=== PATIENT | male | born 1950 | race Caucasian/White ===

== ENCOUNTER 2019-12-30 13:03 | Outpatient (CLI) | payer OTHER, MEDICARE, SELFPAY ==
--- NOTE | 2019-12-30 13:19 | USCV_ITS ---
Gurinder Downing Age: 69 Gender: M : 1950 Exam Date: 12/30/2019 13:17 Ordering Phys: Сергей Villatoro DO Technologist: Exam Location: [facility] [place]_ Indication: CLAUDICATION HYPERTENSION RIGHT LEFT Brachial 157.00 mmHg Brachial 162.00 mmHg Pressure (mmHg) Waveform Pressure (mmHg) Waveform 171.00 BONE PULLER 194.00 140.00 DPA 191.00 1.06 Ankle/Brachial Index 1.20 186.00 Pre-Exercise Toe Pressure 156.00 1.15 Pre-Exercise Toe/Brachial Index 0.96 FINDINGS Normal resting ABIs and TBIs bilaterally CONCLUSIONS No significant arterial obstruction, based on the above findings Dr Julita Chiu MD [facility] (Electronically Signed) Final Date: 30 December 2019 20:27 S
== END 2019-12-30 13:04 | disposition home or self-care (01) ==
LOC: RAD 13:15
PROVIDERS: Family Provider Family Medicine; PCP Family Medicine; Visit Provider Electrodiagnostic Medicine
DX: I73.9 Peripheral vascular disease, unspecified (principal); I10 Essential (primary) hypertension
CPT/HCPCS: 93922

== ENCOUNTER 2020-07-26 12:36 | Outpatient (CLI) | payer OTHER, MEDICARE, SELFPAY ==
--- NOTE | 2020-07-26 12:53 | XRR_ITS ---
PROCEDURE INFORMATION: Exam: XR Right Knee Exam date and time: 07/26/2020 1:22 PM Age: 70 years old Clinical indication: Right; Patient HX: Can't straighten knee pain intensity varies; Additional info: Acute R knee pain TECHNIQUE: Imaging protocol: XR Right knee. Views: 3 views. COMPARISON: [facility] Knee RIGHT 3 views 08/12/2015 11:29 AM FINDINGS: Bones/joints: Moderately pronounced medial compartment joint space narrowing, unchanged. Enlarging joint line osteophytes most pronounced medial compartment. Soft tissues: Normal. XR/XR knee RT 3V* [id number] IMPRESSION: Osteoarthritis most pronounced medial compartment.
== END 2020-07-26 12:37 | disposition home or self-care (01) ==
LOC: RAD 12:46
PROVIDERS: PCP Family Medicine; Visit Provider Electrodiagnostic Medicine
DX: M17.11 Unilateral primary osteoarthritis, right knee (principal)
CPT/HCPCS: 73562

== ENCOUNTER 2021-02-02 12:22 | Outpatient (CLI) | payer MEDICARE, SELFPAY ==
--- NOTE | 2021-02-02 13:30 | USCV_ITS ---
Gurinder Downing Age: 70 Gender: M : 1950 Exam Date: 02/02/2021 13:22 Ordering Phys: Julita Chiu MD ([email or web address]) Technologist: Megan Arrington Exam Location: [facility] [place] Indication: PRE OP PACER BP: / HR: 40 Rhythm: Sinus Technical Quality: Adequate MEASUREMENTS (Male / Female) Normal Values 2D ECHO LV Diastolic Diameter PLAX 4.0 cm 4.2 - 5.9 / 3.9 - 5.3 cm LV Systolic Diameter PLAX 2.5 cm LV Chamber Size 4.0 cm IVS Diastolic Thickness 1.5 cm 0.6 - 1.0 / 0.6 - 0.9 cm IVS Systolic Thickness 1.2 cm LVPW Diastolic Thickness 1.6 cm 0.6 - 1.0 / 0.6 - 0.9 cm LVPW Systolic Thickness 1.2 cm RV Chamber Size 4.4 cm LVOT Diameter 2.1 cm LV Ejection Fraction 2D Teich 67.3 % LV Ejection Fraction MOD 2C 44.3 % LV Ejection Fraction 2C AL 44.2 % LA Diameter 4.1 cm LA Width 3.6 cm LA Height 4.2 cm RA Width 4.0 cm RA Height 3.1 cm Aorta at Sinotubular Diameter 3.4 cm M-MODE LV Diastolic Diameter MM 5.8 cm 4.2 - 5.9 / 3.9 - 5.3 cm LV Systolic Diameter MM 3.6 cm LV Ejection Fraction MM Teich 66.4 % IVS Diastolic Thickness MM 1.4 cm 0.6 - 1.0 / 0.6 - 0.9 cm IVS Systolic Thickness MM 2.2 cm LVPW Diastolic Thickness MM 1.5 cm 0.6 - 1.0 / 0.6 - 0.9 cm LVPW Systolic Thickness MM 2.5 cm Aortic Annulus Diameter 4.0 cm LA Ao Ratio MM 1.1 MV E Point Septal Separation 0.5 cm DOPPLER AV Peak Velocity 173.0 cm/s LVOT Peak Velocity 117.0 cm/s AV Area Cont Eq vti 2.4 cm squared AV Area Cont Eq pk 2.3 cm squared MV Area PHT 2.8 cm squared Mitral E to A Ratio 1.0 MV E' Velocity 48.0 cm/s Mitral E to MV E' Ratio 10.0 Mitral E to LV E' Lateral Ratio 13.3 Mitral E to LV E' Septal Ratio 8.1 TR Peak Velocity 156.8 cm/s TR Peak Gradient 9.8 mmHg TR Mean Velocity 96.8 cm/s TR Mean Gradient 4.5 mmHg TR Velocity Time Integral 33.5 cm TV Peak E Velocity 81.0 cm/s Right Atrial Pressure 3.0 mmHg Pulmonary Artery Systolic Pressu 12.8 mmHg PV Peak Velocity 91.0 cm/s RV Acceleration Time 0.2 s RV Ejection Time 0.4 s RV AcT/ET 0.5 FINDINGS Left Ventricle Normal left ventricular size and systolic function, EF 65%.moderate left ventricular hypertrophy. No regional wall motion abnormalities. Right Ventricle Normal right ventricular size and systolic function. Right Atrium The right atrium is normal in size. Left Atrium The left atrium is normal in size. Mitral Valve No gross abnormalities noted Aortic Valve Thickened aortic valve with some restriction of mobility Tricuspid Valve Trace to mild tricuspid valve regurgitation. Estimated pulmonary artery peak systolic pressure was within normal limits Pulmonic Valve Pulmonic valve not well visualized. Pericardium Normal pericardium without effusion. Aorta Normal ascending aorta dimension. CONCLUSIONS Normal left ventricular size and systolic function, EF 65%.moderate left ventricular hypertrophy. No regional wall motion abnormalities. Some features of aortic valve sclerosis. Trace to mild tricuspid valve regurgitation. There is no pericardial effusion. There are no intracardiac masses. No previous study is available for comparison. Dr Julita Chiu MD [facility] (Electronically Signed) Final Date: 02 February 2021 18:59 S
== END 2021-02-02 12:23 | disposition home or self-care (01) ==
PROVIDERS: PCP Family Medicine; Visit Provider Internal Medicine Cardiovascular Disease
DX: I44.30 Unspecified atrioventricular block (principal); N18.9 Chronic kidney disease, unspecified; Z79.01 Long term (current) use of anticoagulants; R06.02 Shortness of breath
CPT/HCPCS: 80048; 83880; 84443; 85025; 85610; 93306

== ENCOUNTER 2021-02-03 12:03 | Inpatient (IN) | payer MEDICARE, SELFPAY ==
[2021-02-03] VITALS (86 sets, daily range): BP systolic 91–184; BP diastolic 53–123; PULSE 35–72; RESP 11–25; TEMP 36.8–37; O2SAT 94–98; BMI 40.1
--- NOTE | 2021-02-03 12:26 | XR_ITS ---
WS: [id number] PORTABLE CHEST HISTORY: dyspnea/cough COMPARISON: 02/14/2016 Lungs are clear and well expanded. No pleural effusion or pneumothorax. Cardiac size: Normal. Mediastinum/Aorta: Normal mediastinum. No osseous abnormality seen. XR/XR chest 1V portable [id number] IMPRESSION: Unremarkable portable chest.
--- NOTE | 2021-02-03 12:26 | ECG_ITS ---
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 Measurements Intervals [place] Rate: 40 P: FL: QRS: 28 QRSD: 149 T: -28 QT: 497 QTc: 406 Interpretive Statements SINUS RHYTHM WITH COMPLETE HEART BLOCK AND ISOLATED PVC INTRAVENTRICULAR CONDUCTION DELAY [130+ ms QRS DURATION] Compared to ECG 02/03/2021 15:08:09 Intraventricular conduction delay now present Idioventricular rhythm no longer present Electronically Signed On 02-03-2021 23:12:01 CDT by Ayla Ha M.D. [id number]
--- NOTE | 2021-02-03 12:52 | W.ED.SOB ---
HPI - SOB/Dyspnea General: Chief Complaint: Shortness of Breath/Dyspnea Stated Complaint: SOB, SENT OVER BY DR. TOTH Time Seen by Provider: 02/03/21 12:23 History of Present Illness: HPI Narrative: 70-year-old male who presents to the emergency room with complaints of shortness of breath with exertion. He was seen this morning at cardiology office by Dr. Toth and found to be in third-degree heart block. He is not had any chest pain he has been very short of breath. MD elicited complaint: shortness of breath Onset (ago): week(s) Context: occurred during exertion Timing: constant and progressively worsening Severity: severe Exacerbating factors: exertion Relieving factors: rest Associated symptoms: Reports lightheadedness; Deny abdominal pain, chest pain, fever(s), nausea, orthopnea or vomiting Treatment prior to arrival: none Review of Systems Const: Denies: fever(s), chills, body aches, change in appetite, fatigue or malaise ENMT: Denies: throat pain, ear or mastoid pain, nasal discharge or nasal congestion Card: Reports: lightheadedness and dyspnea on exertion; Denies: chest pain, edema or orthopnea Resp: Reports: dyspnea; Denies: productive cough or non-productive cough GI: Denies: abdominal pain, nausea, vomiting, hematemesis, coffee ground emesis, diarrhea, constipation, bloating, hematochezia or melena : Denies: flank pain, dysuria, urinary frequency or urinary urgency Skin/Breast: Denies: rash or pruritus PFSH ED PFSH: Medical History History of hypertension Hx of hyperlipidemia NAILA (obstructive sleep apnea) Shortness of breath Symptomatic bradycardia Type 2 diabetes mellitus Family History Father CAD (coronary artery disease) Diabetes Stroke Mother Cancer CAD (coronary artery disease) Denies family history of Clotting disorder Dementia Chronic kidney disease (CKD) Suicide Anesthesia complication Bleeding disorder Lung disease Social History Smoking and tobacco status: never smoked Alcohol intake: current Alcohol intake frequency: few times a week Physical Exam Const: COMMON NORMALS: no acute distress GENERAL APPEARANCE: cooperative and comfortable ORIENTATION/CONSCIOUSNESS: Yes awake, Yes oriented to person, Yes oriented to place and Yes oriented to time HENMT: COMMON NORMALS: normocephalic, atraumatic and hearing grossly normal bilaterally HEAD & SCALP: normocephalic and atraumatic Neck/C-Spine: COMMON NORMALS: no JVD Resp: COMMON NORMALS: normal respiratory effort, No retractions, No use of accessory muscles and clear to auscultation bilaterally AUSCULTATION: clear to auscultation bilaterally Cardio: COMMON NORMALS: no JVD, regular rate and No murmurs present (Cardio) RATE: regular rate and bradycardic RHYTHM: abnormal rhythm (Symptomatic bradycardia) other GI: COMMON NORMALS: Soft to palpation and No hepatosplenomegaly present AUSCULTATION: Yes normoactive bowel sounds PALPATION: Yes Soft to palpation, No Tenderness to palpation present (GI), No Guarding due to palpation present (GI) and Yes No hepatosplenomegaly present Extremity: COMMON NORMALS: normal to inspection, capillary refill normal, no clubbing, cyanosis or edema, no calf tenderness and no pedal edema Neuro: SENSORIUM/ORIENTATION: Yes oriented to person, Yes oriented to place and Yes oriented to time Skin: COMMON NORMALS: no rashes or lesions noted GENERAL SKIN EXAM: no rashes or lesions noted Course Vital Signs: Vital signs: Vital Signs Temperature 98.4 F 02/03/21 12:16 Pulse Rate 37 L 02/03/21 14:51 Respiratory Rate 17 02/03/21 14:51 Blood Pressure 156/63 02/03/21 14:51 Pulse Oximetry 98 02/03/21 14:51 MDM - SOB/Dyspnea MDM Narrative: Medical decision making narrative: 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 Orders written Lab Data: Labs: Lab Results 02/03/21 02/03/21 02/03/21 Range/Units 12:52 12:52 12:52 WBC 6.0 (4.0-10.0) 10^3/ uL RBC 5.49 H (4.1-5.3) 10^6/u L Hgb 17.2 H (11.7-16.6) g/dL Hct 49.8 (42.0-52.0) % MCV 90.7 (80-94) fL MCH 31.3 (28.0-34.0) pg MCHC 34.5 (30.0-36.0) g/dL RDW 12.6 (12.1-15.1) % Plt Count 216 (130-400) 10^3/c mm MPV 9.7 (7.4-10.4) fL Neut % (Auto) 60.6 % Lymph % (Auto) 27.0 % Maverick % (Auto) 9.5 % Eos % (Auto) 2.2 % Baso % (Auto) 0.5 % Neut # (Auto) 3.62 (1.8-7.7) 10^3/u L Lymph # (Auto) 1.6 (0.8-4.8) 10^3/u L Maverick # (Auto) 0.6 (0.2-0.9) 10^3/u L Eos # (Auto) 0.1 (0.0-0.8) 10^3/u L Baso # (Auto) 0.0 (0.0-0.1) 10^3/u L Nucleated RBC % (a uto) 0 % Nucleated RBCs # 0.0 /100WBC Sodium 134 L (136-145) mmol/L Potassium 4.6 (3.5-5.1) mmol/L Chloride 103 (98-107) mmol/L Carbon Dioxide 19 L (22-29) mmol/L Anion Gap 16.6 (5-19) BUN 26 H (8-23) mg/dL Creatinine 1.1 (0.7-1.2) mg/dL GFR Calculation 66.4 L (90-130) mL/min Glucose 172 H (65-115) mg/dL Calculated Osmolal ity 287 (285-295) mOsm/k g Calcium 9.4 (8.5-10.5) mg/dL Total Bilirubin 0.7 (0.15-1.2) mg/dL AST 18 (0-40) U/L ALT 32 (0-41) U/L Alkaline Phosphata se 95 (40-130) IU/L Creatine Kinase 110 (39-308) U/L Troponin T Baselin e 28 H (0-15) ng/L Total Protein 6.1 L (6.6-8.7) g/dL Albumin 4.3 (3.5-5.2) g/dL Globulin 1.8 (1.3-4.6) g/dL TSH 2.37 (0.27-4.20) uIU/ mL Discharge Plan Discharge Patient Disposition: Admitted As Inpatient Admit Provider: Anil Wiley Clinical Impression: Heart block AV third degree, Accelerated hypertension Condition: Stable Coding Level of Care Code ED Insecticide Mixer for Chg Fwd Exam Comprehensive
[2021-02-03 13:06] LABS: Basophils % 0.5 %; Eosinophils # 0.1 10^3/uL (0.0-0.8); Eosinophils % 2.2 %; Hematocrit 49.8 % (42.0-52.0); Hemoglobin 17.2 g/dL (11.7-16.6); Lymphocytes # 1.6 10^3/uL (0.8-4.8); Mean Corpuscular HGB Conc 34.5 g/dL (30.0-36.0); Mean Corpuscular Hemoglobin 31.3 pg (28.0-34.0); Mean Corpuscular Volume 90.7 fL (80-94); Mean Platelet Volume 9.7 fL (7.4-10.4); Monocytes # 0.6 10^3/uL (0.2-0.9); Monocytes % 9.5 %; Neutrophils # 3.62 10^3/uL (1.8-7.7); Neutrophils % 60.6 %; Nucleated Red Blood Cells % 0 %; Platelet Count 216 10^3/cmm (130-400); Red Blood Count 5.49 10^6/uL (4.1-5.3); Red Cell Distribution Width 12.6 % (12.1-15.1)
[2021-02-03 13:43] LABS: Troponin(5th) Baseline 28 ng/L (0-15)
[2021-02-03 13:46] LABS: Add Urine Microscopic? NO
--- NOTE | 2021-02-03 13:47 | PC.PHAR ---
PT BROUGHT IN HIS MEDICATION BOTTLES-PT STATES THE AMLODIPINE WAS DCED AROUND 01/24/21-PT STATES HE TAKES LIPITOR 40MG ON MON,SUN,FRI-PTS MEDICATION BOTTLE HE BROUGHT IN HAS 40 MG PO BEDTIME-PT STATES HE TAKES BUPROPION 150MG PO QAM, 75MG PO AT NOON, 150MG AT HS-PTS MEDICATION BOTTLE BROUGHT IN HAS 150MG PO QAM,75MG AT NOON, 75MG HS-PT STATES HE TAKES DIVALPROEX 1000MG PO BEDTIME-PTS MEDICATION BOTTLE BROUGHT IN HAS 500MG PO BEDTIME-PT HAS A RX FILLED ON 02/02/21 30D/S FOR HYDRALAZINE 50MG PO TID PT STATES HE HASNT STARTED THAT RX YET-PT STATES HE IS TAKING HYDRALAZINE 25MG PO BID-PT STATES HE DOESNT NORMALLY TAKE ASPIRIN 81MG BUT HAS BEEN TAKING FOR THE LAST COUPLE OF DAYS
--- NOTE | 2021-02-03 13:48 | P.CONIM_ITS ---
Providers/Reason For Consult Consulting Physican/Specialty*: CANDACE Chiu MD/cardiology Reason for Consult*: Patient with symptomatic bradycardia/third-degree heart block Requesting Vanessaan: Anil Wiley History of Present Illness History of Present Illness Gurinder Downing is a 70 year old male with a history of hypertension, type 2 diab etes, obstructive sleep apnea and obesity, he is presently with complaints of extreme shortness of breath with activities for the last 2 weeks. He was found to be in third-degree heart block with possible junctional rhythm and PVCs on the EKG. Cardiology consult is requested for further cardiac evaluation and recommendations. This patient apparently has been in his baseline state of health up until 2 weeks ago when he had the episode of extreme shortness of breath as he was walking across the room that made him to collapse to the couch. Since then, he has been experiencing exertional shortness of breath .any minimal activities, make him short of breath . His functional status has been dramatically declining because of this. He did not have any chest pain as such. He was seen in my clinic yesterday with these complaints. I recommended hospital admission but the patient declined. Today he decided to come back and be admitted to the hospital for further evaluation management. Many years ago, he had a cardiac catheterization through the right groin, for chest pain and was told to have no blockages. According to the patient, following this procedure, he had severe pain in the right groin for a long period of time. Currently he is okay with no pain in the groin. He has no fever or chills. No cough. No orthopnea or PND. Review of Systems Narrative: CONSTITUTIONAL: No fever or chills. EYES: No blurring of vision or other visual disturbances lately. ENT: No hoarseness of voice, auditory disturbances or sore throat. CARDIOVASCULAR: As mentioned above. RESPIRATORY: Shortness of breath as mentioned above. GASTROINTESTINAL: No hematemesis or melena. GENITOURINARY: No dysuria or hematuria. INTEGUMENTARY: No skin rashes or history of skin cancer. NEURO: No transient ischemic attacks or amaurosis. PSYCHIATRIC: No history of psychosis or major depression. HEMATOLOGIC: No bleeding disorders or significant anemia. ENDOCRINE: Type 2 diabetes MUSCULOSKELETAL: No recent joint pain or swelling. ALLERGY/IMMUNOLOGY: As mentioned above. Meds/Allergies Home Medications and Allergies Home Medications Medication Instructions Recorded Confirmed Last Taken Type acetaminophen 500 mg tablet 500 mg PO PRN tab 02/02/21 02/03/21 Unknown History atorvastatin 40 mg tablet See Rx Instructions .ROUTE .COMPLEX 02/02/21 02/03/21 Unknown History bupropion HCl 75 mg tablet See Rx Instructions .ROUTE .COMPLEX 02/02/21 02/03/21 02/02/21 History diphenhydramine HCl 25 mg capsule 25 mg PO PRN 02/02/21 02/03/21 Unknown History glucosamine HCl 1,500 mg tablet 1,500 mg PO PRN tab 02/02/21 02/03/21 Unknown History hydralazine 50 mg tablet 50 mg PO TID 30 Days #90 tab 02/02/21 02/03/21 Unknown Rx hydrocodone 5 mg-acetaminophen 325 1 tab PO PRN tab 02/02/21 02/03/21 Unknown History mg tablet ibuprofen 200 mg capsule 200 - 600 mg PO PRN 02/02/21 02/03/21 Unknown History metformin 1,000 mg tablet 1,000 mg PO BID 02/02/21 02/03/21 02/02/21 History methylphenidate HCl 20 mg tablet 20 mg PO BID 02/02/21 02/03/21 02/02/21 History multivitamin 1 tab PO DAILY 02/02/21 02/03/21 02/02/21 History olmesartan 40 mg tablet 40 mg PO QAM 02/02/21 02/03/21 02/02/21 History sildenafil 100 mg tablet 100 mg PO PRN 02/02/21 02/03/21 Unknown History testosterone 50 mg/5 gram (1 %) 50 mg TRANSDERMAL QAM 02/02/21 02/03/21 Unknown History transdermal gel vitamin B complex 1 tab PO DAILY 02/02/21 02/03/21 Unknown History Closys Mouthwash See Rx Instructions .ROUTE .COMPLEX 02/03/21 02/03/21 Unknown History aspirin [Aspir-81] 81 mg PO PRN 02/03/21 02/03/21 02/02/21 History clotrimazole [Lotrimin AF 1 applic TOPICAL PRN 02/03/21 02/03/21 Unknown History (clotrimazole)] divalproex See Rx Instructions .ROUTE .COMPLEX 02/03/21 02/03/21 Unknown History hydralazine 25 mg PO BID 02/03/21 02/03/21 02/03/21 10:30 History Allergies Allergy/AdvReac Type Severity Reaction Status Date / Time No Known Allergies Allergy Verified 02/03/21 13:39 PFSH Acute PFSH: Medical History History of hypertension Hx of hyperlipidemia NAILA (obstructive sleep apnea) Shortness of breath Symptomatic bradycardia Type 2 diabetes mellitus Family History Father CAD (coronary artery disease) Diabetes Stroke Mother Cancer CAD (coronary artery disease) Denies family history of Clotting disorder Dementia Chronic kidney disease (CKD) Suicide Anesthesia complication Bleeding disorder Lung disease Social History Smoking and tobacco status: never smoked Alcohol intake: current Alcohol intake frequency: few times a week Vitals/I&O/Wt Last Vital Signs Temp 98.4 F 02/03/21 12:16 Pulse 38 L 02/03/21 13:43 Resp 16 02/03/21 13:43 BP 184/74 02/03/21 13:43 Pulse Ox 95 02/03/21 13:43 Weight last 48 hrs Weight 288 lb Physical Exam Narrative: EXAM NARRATIVE: GENERAL: The patient is alert and oriented times three. Not in any acute distress. HEENT: No significant pallor, icterus or lymphadenopathy. The pupils are reactant to light and are mildly dilated. Oral cavity: There are no mucous membrane lesions. Funduscopic examination: The fundus is not visualized NECK: Trachea appears to be central. No masses noted. No JVD or thyromegaly appreciated. No carotid bruit. RESPIRATORY: Chest is symmetrical. No intercostals muscle retraction or any accessory muscle activation. There is no chest wall tenderness. Breath sounds are heard bilaterally. No rales or rhonchi heard. No evidence of any consolidation. BREASTS: Deferred. HEART: S1 and S2 are normal. No S3 or S4 heard. Short ejection systolic murmur grade 3/6 in the aortic area . No pericardial rub or any click heard. ABDOMEN: No vessel pulsations or distention. No tenderness. No organomegaly appreciated. No abdominal bruit. Bowel sounds are normally heard. : Deferred. RECTAL: Deferred. LYMPHATIC: No lymphadenopathy noted in the neck or groin. EXTREMITIES: No edema or cyanosis. No clubbing. The pulses are symmetrical bilaterally. The radial, femoral, dorsalis pedis and the posterior tibial pulses are palpated and found to be in good volume and amplitude. MUSCULOSKELETAL: No acute joint deformities or swelling SKIN: There are no significant scars or skin rash noted. NEUROPSYCHIATRIC: The patient is alert and oriented x3. Appears to be in a good mood. The higher functions are grossly within normal limits. No tremors or rigidity noted. Data Imaging^: Echo: My impression: Echocardiogram done on 02/02/2021 revealed Normal left ventricular size and systolic function, EF 65%.moderate left ventricular hypertrophy. No regional wall motion abnormalities. Some features of aortic valve sclerosis. Trace to mild tricuspid valve regurgitation. There is no pericardial effusion. There are no intracardiac masses. No previous study is available for comparison. CXR: My impression: Normal cardiac silhouette with no lung infiltrates. No acute pathology noted. EKG^: EKG 1: My Interpretation: The EKG revealed third-degree heart block with possible junctional escape rhythm. Heart rate was 44 bpm. Occasional PVCs. Nonspecific IVCD. A&P Assessment and plan (1) Heart block AV third degree: Patient requires a permanent pacer implantation, for further management of his condition. This was discussed with the patient in detail which he understood well. We may consider doing a temporary pacemaker wire insertion p rior to the permanent pacemaker procedure. His procedures were discussed with the patient in detail. The risk of bleeding, hematoma, vascular injury, pneumothorax, infection, renal failure and other concomitant complications were explained in detail. The patient [] understood this well and consented to proceed. We will go ahead and schedule the patient for the procedure in the morning. Status: Acute (2) Accelerated hypertension: For better control of the blood pressure, I may increase the dose of the hydralazine to 50 mg p.o. every 6 hours. He may continue on all current medications as it is. Status: Acute (3) Hx of hyperlipidemia: May continue on the current medications. Status: Acute (4) NAILA (obstructive sleep apnea): Continue the current management. Status: Acute (5) Shortness of breath: Most likely related to the bradycardia. The BNP was only minimally elevated. Status: Acute Additional A&P Information Based on the patient's clinical progress, further recommendations will be made. Thank you for the opportunity to evaluate this patient and make these recommendations Consult Attestations Medical Necessity Statement: Patient requires continued hospital stay for close monitoring and further management Coding Level of Care Code Acute Outside Sales Advertising Executive for Chg Fwd Diagnoses Heart block AV third degree I44.2 Accelerated hypertension I10 Hx of hyperlipidemia Z86.39 NAILA (obstructive sleep apnea) G47.33 Shortness of breath R06.02
[2021-02-03 13:50] LABS: Alanine Aminotransferase 32 U/L (0-41); Albumin Level 4.3 g/dL (3.5-5.2); Alkaline Phosphatase 95 IU/L (40-130); Anion Gap 16.6 (5-19); Aspartate Amino Transferase 18 U/L (0-40); Blood Urea Nitrogen 26 mg/dL (8-23); Calcium 9.4 mg/dL (8.5-10.5); Carbon Dioxide 19 mmol/L (22-29); Chloride 103 mmol/L (98-107); Creatine Phosphokinase 110 U/L (39-308); Globulin 1.8 g/dL (1.3-4.6); Glomerular Filtration Rate 66.4 mL/min (90-130); Glucose 172 mg/dL (65-115); Osmolality Calculated 287 mOsm/kg (285-295); Potassium 4.6 mmol/L (3.5-5.1); Sodium 134 mmol/L (136-145); Thyroid Stimulating Hormone 2.37 uIU/mL (0.27-4.20); Total Bilirubin 0.7 mg/dL (0.15-1.2); Total Protein 6.1 g/dL (6.6-8.7)
[2021-02-03 13:52] LABS: Bilirubin Urine Neg (Negative); Blood Urine Neg (Negative); Glucose Urine UA 1+ (Normal); Ketones Urine Negative (Negative); Leukocyte Esterase Urine Negative (Negative); Nitrate Urine Negative (Negative); Protein Urine Neg (Negative); Urine Appearance Clear (CLEAR); Urine Color Yellow (Yellow); Urobilinogen Urine Norm (Negative); pH Urine 5 (5-7)
--- NOTE | 2021-02-03 13:52 | PM.HP ---
Providers/Chief Complaint Chief Complaint: SOB, SENT OVER BY DR. TOTH History of Present Illness Gurinder Downing is a 70 year old [id number] male with past medical history of hypertension, dyslipidemia, diabetes who presents with complaints of shortness of breath. He was referred by his primary mandrel maker Dr. Toth. Several weeks ago the patient started experiencing shortness of breath with exertion and decreased stamina. Some days he feels worse than others. He reports orthostatic lightheadedness occasionally. He was evaluated by his primary mandrel maker Dr. Toth yesterday and was found to have third-degree AV block. He is in ER now for admission for permanent pacemaker placement. He occasionally reports palpitations and some chest discomfort. No severe pain. Denies cough, mucus production, fever or chills. No nausea or vomiting. No abdominal pain. No diarrhea. Denies any rectal blood or black stool. Denies similar episodes in the past. EKG in the emergency room confirmed diagnosis. He has third-degree AV block with ventricular rate of 44. No ischemic changes. Review of Systems General: Reports: 10 or more systems reviewed and unremarkable except in HPI and below Medications/Allergies Home Medications Medication Instructions Recorded Confirmed Last Taken Type acetaminophen 500 mg tablet 500 mg PO PRN tab 02/02/21 02/03/21 Unknown History atorvastatin 40 mg tablet See Rx Instructions .ROUTE .COMPLEX 02/02/21 02/03/21 Unknown History bupropion HCl 75 mg tablet See Rx Instructions .ROUTE .COMPLEX 02/02/21 02/03/21 02/02/21 History diphenhydramine HCl 25 mg capsule 25 mg PO PRN 02/02/21 02/03/21 Unknown History glucosamine HCl 1,500 mg tablet 1,500 mg PO PRN tab 02/02/21 02/03/21 Unknown History hydralazine 50 mg tablet 50 mg PO TID 30 Days #90 tab 02/02/21 02/03/21 Unknown Rx hydrocodone 5 mg-acetaminophen 325 1 tab PO PRN tab 02/02/21 02/03/21 Unknown History mg tablet ibuprofen 200 mg capsule 200 - 600 mg PO PRN 02/02/21 02/03/21 Unknown History metformin 1,000 mg tablet 1,000 mg PO BID 02/02/21 02/03/21 02/02/21 History methylphenidate HCl 20 mg tablet 20 mg PO BID 02/02/21 02/03/21 02/02/21 History multivitamin 1 tab PO DAILY 02/02/21 02/03/21 02/02/21 History olmesartan 40 mg tablet 40 mg PO QAM 02/02/21 02/03/21 02/02/21 History sildenafil 100 mg tablet 100 mg PO PRN 02/02/21 02/03/21 Unknown History testosterone 50 mg/5 gram (1 %) 50 mg TRANSDERMAL QAM 02/02/21 02/03/21 Unknown History transdermal gel vitamin B complex 1 tab PO DAILY 02/02/21 02/03/21 Unknown History Closys Mouthwash See Rx Instructions .ROUTE .COMPLEX 02/03/21 02/03/21 Unknown History aspirin [Aspir-81] 81 mg PO PRN 02/03/21 02/03/21 02/02/21 History clotrimazole [Lotrimin AF 1 applic TOPICAL PRN 02/03/21 02/03/21 Unknown History (clotrimazole)] divalproex See Rx Instructions .ROUTE .COMPLEX 02/03/21 02/03/21 Unknown History hydralazine 25 mg PO BID 02/03/21 02/03/21 02/03/21 10:30 History Allergies Allergy/AdvReac Type Severity Reaction Status Date / Time No Known Allergies Allergy Verified 02/03/21 13:39 PFSH Acute PFSH: Medical History History of hypertension Hx of hyperlipidemia NAILA (obstructive sleep apnea) Shortness of breath Symptomatic bradycardia Type 2 diabetes mellitus Family History Father CAD (coronary artery disease) Diabetes Stroke Mother Cancer CAD (coronary artery disease) Denies family history of Clotting disorder Dementia Chronic kidney disease (CKD) Suicide Anesthesia complication Bleeding disorder Lung disease Social History Smoking and tobacco status: never smoked Alcohol intake: current Alcohol intake frequency: few times a week Vitals/I&O/Wt Last Vital Signs Temp 98.4 F 02/03/21 12:16 Pulse 38 L 02/03/21 13:43 Resp 16 02/03/21 13:43 BP 184/74 02/03/21 13:43 Pulse Ox 95 02/03/21 13:43 Weight last 48 hrs Weight 130.635 kg Physical Exam Narrative: EXAM NARRATIVE: The patient is awake alert and oriented. No acute distress. Mood and affect are appropriate. Responses are adequate. Skin is warm and dry. Moist mucous membranes. Eyes PERRL, extraocular muscles are intact Neck supple. No JVD Lungs clear to auscultation bilaterally. Heart S1, S2, irregular Abdomen soft, obese, nontender, bowel sounds are present Extremities no edema cyanosis or calf tenderness bilaterally Neuro evaluation is nonfocal. normal speech. Data : 02/03/21 12:52 02/03/21 12:52 Other Labs: Laboratory Results WBC 6.0 10^3/uL (4.0-10.0) 02/03/21 12:52 RBC 5.49 10^6/uL (4.1-5.3) H 02/03/21 12:52 Hgb 17.2 g/dL (11.7-16.6) H 02/03/21 12:52 Hct 49.8 % (42.0-52.0) 02/03/21 12:52 MCV 90.7 fL (80-94) 02/03/21 12:52 MCH 31.3 pg (28.0-34.0) 02/03/21 12:52 MCHC 34.5 g/dL (30.0-36.0) 02/03/21 12:52 RDW 12.6 % (12.1-15.1) 02/03/21 12:52 Plt Count 216 10^3/cmm (130-400) 02/03/21 12:52 MPV 9.7 fL (7.4-10.4) 02/03/21 12:52 Neut % (Auto) 60.6 % 02/03/21 12:52 Lymph % (Auto) 27.0 % 02/03/21 12:52 [place] % (Auto) 9.5 % 02/03/21 12:52 Eos % (Auto) 2.2 % 02/03/21 12:52 Baso % (Auto) 0.5 % 02/03/21 12:52 Neut # (Auto) 3.62 10^3/uL (1.8-7.7) 02/03/21 12:52 Lymph # (Auto) 1.6 10^3/uL (0.8-4.8) 02/03/21 12:52 [place] # (Auto) 0.6 10^3/uL (0.2-0.9) 02/03/21 12:52 Eos # (Auto) 0.1 10^3/uL (0.0-0.8) 02/03/21 12:52 Baso # (Auto) 0.0 10^3/uL (0.0-0.1) 02/03/21 12:52 Nucleated RBC % (auto) 0 % 02/03/21 12:52 Nucleated RBCs # 0.0 /100WBC 02/03/21 12:52 Potassium 4.6 mmol/L (3.5-5.1) 02/03/21 12:52 Chloride 103 mmol/L (98-107) 02/03/21 12:52 Anion Gap 16.6 (5-19) 02/03/21 12:52 Creatinine 1.1 mg/dL (0.7-1.2) 02/03/21 12:52 Calculated Osmolality 287 mOsm/kg (285-295) 02/03/21 12:52 Calcium 9.4 mg/dL (8.5-10.5) 02/03/21 12:52 Total Bilirubin 0.7 mg/dL (0.15-1.2) 02/03/21 12:52 AST 18 U/L (0-40) 02/03/21 12:52 ALT 32 U/L (0-41) 02/03/21 12:52 Alkaline Phosphatase 95 IU/L (40-130) 02/03/21 12:52 Creatine Kinase 110 U/L (39-308) 02/03/21 12:52 Troponin T Baseline 28 ng/L (0-15) H 02/03/21 12:52 Albumin 4.3 g/dL (3.5-5.2) 02/03/21 12:52 Globulin 1.8 g/dL (1.3-4.6) 02/03/21 12:52 TSH 2.37 uIU/mL (0.27-4.20) 02/03/21 12:52 Urine Color Yellow (Yellow) 02/03/21 13:35 Urine Appearance Clear (CLEAR) 02/03/21 13:35 Urine pH 5 (5-7) 02/03/21 13:35 Ur Specific [place] 1.020 (1.005-1.030) 02/03/21 13:35 Urine Protein Neg (Negative) 02/03/21 13:35 Urine Glucose (UA) 1+ (Normal) 02/03/21 13:35 Urine Ketones Negative (Negative) 02/03/21 13:35 Urine Blood Neg (Negative) 02/03/21 13:35 Urine Nitrate Negative (Negative) 02/03/21 13:35 Urine Bilirubin Neg (Negative) 02/03/21 13:35 Urine Urobilinogen Norm mg/dL (Negative) 02/03/21 13:35 Ur Leukocyte Esterase Negative (Negative) 02/03/21 13:35 Impressions Chest X-Ray 02/03/21 12:26 IMPRESSION: Unremarkable portable chest. A&P Additional A&P Information 70-year-old male being admitted for third-degree AV block. Heart block with bradycardia. Being admitted to ICU. Permanent pacemaker will be placed tomorrow. [id number] patient. Hypertension, uncontrolled. We will continue home hydralazine and Benicar. Will order as needed Vasotec. Diabetes. His A1c was about 7.8 last time. The patient asked me not to order insulin sliding scale. He does not want insulin. We will hold his Metformin while he is hospitalized. We will closely monitor his blood sugar. DVT prophylaxis. Teds and SCDs. No anticoagulation due to upcoming procedure. CODE STATUS. He wants to be full code. The plan of care was discussed with the patient and his . They verbalized understanding and agreement. Discussed with Dr. Toth. Attestations Medical Necessity Statement*: Patient is being admitted to ICU with complete heart block. Pacemaker placement probably tomorrow. I expect that the patient will spend another midnight after that. Coding Level of Care Code Acute Procurement Coordinator for Leonel Evans
--- NOTE | 2021-02-03 14:26 | ECG_ITS ---
[facility] Test Date: 2021-02-03 Pat Name: Gurinder Downing Department: Room: ICU11 Gender: Male Home Based Assistant: : 1950 Requested By: Eddie Gloria Order Number: [id number] Alfie MD: Ayla Ha M.D. Measurements Intervals [place] Rate: 35 P: [place]: QRS: 9 QRSD: 129 T: 2 QT: 539 QTc: 415 Interpretive Statements SINUS RHYTHM COMPLETE HEART BLOCK INTRAVENTRICULAR CONDUCTION DELAY CRITICAL TEST RESULT Compared to ECG 02/03/2021 13:08:47 T-wave abnormality no longer present Prolonged QT interval no longer present Electronically Signed On 02-03-2021 23:13:46 CDT by Ayla Ha M.D. [email or web address] centerInReal Technologiesohiohealth marion general hospital.[employer]/store/OM/[id number]
--- NOTE | 2021-02-03 15:11 | PC.NURSE ---
EKG done at 1505 and shown to ER doctor
[2021-02-03 15:32] LABS: Troponin 5 2HR 26.18 ng/L (0-15)
[2021-02-03 15:37] LABS: Troponin 5 2HR Delta -1.82 ABS# (0-10)
--- NOTE | 2021-02-03 15:55 | PC.NURSE ---
To ICU via wheelchair at 1551, ambulated to restroom, belongings at beside, accompanied by . No signs of distress, no chest pain.
[2021-02-03] MEDS: enalaprilat 1.25 mg/mL Inj IVP (16:54)
[2021-02-03] MEDS: hyDRALAzine 50 mg Tablet PO ×2 (18:03→20:59)
--- NOTE | 2021-02-03 18:26 | ECG_ITS ---
[facility] Test Date: 2021-02-03 Pat Name: Gurinder Downing Department: Room: Gender: Male Manager Group: : 1950 Requested By: Eddie Gloria Order Number: [id number] Alfie MD: Dashawn Cárdenas M.D. Measurements Intervals [place] Rate: 44 P: [place]: QRS: 22 QRSD: 118 T: 38 QT: 519 QTc: 448 Interpretive Statements COMPLETE HEART BLOCK/THIRD DEGREE AV BLOCK POSSIBLE RIGHT VENTRICULAR CONDUCTION DELAY [RSR (QR) IN V1/V2] NONSPECIFIC T-WAVE ABNORMALITY PROLONGED QT INTERVAL No previous ECG available for comparison Electronically Signed On 02-04-2021 18:51:03 CDT by Dashawn Cárdenas M.D. [email or web address].[email or web address]/store/OM/[id number]
[2021-02-03 20:26] LABS: Troponin 5 6HR 25.93 ng/L (0-15)
[2021-02-03 20:27] LABS: Troponin 5 6HR Delta -2.07 ng/L (0-12)
[2021-02-03] MEDS: divalproex ER 500 mg Tablet (24H) 1000 MG PO (20:59)
--- NOTE | 2021-02-03 22:48 | ECG_ITS ---
[facility] Test Date: 2021-02-03 Pat Name: Gurinder Downing Department: Room: ICU11 Gender: Male Cooker Casing: : 1950 Requested By: Dominic Friedman Order Number: [id number] Alfie MD: Dashawn Cárdenas M.D. Measurements Intervals [place] Rate: 43 P: [place]: QRS: 104 QRSD: 156 T: -55 QT: 517 QTc: 442 Interpretive Statements ATRIAL FIBRILLATION WITH SLOW VENTRICULAR RESPONSE INTRAVENTRICULAR CONDUCTION DELAY [130+ ms QRS DURATION] POSSIBLE RIGHT VENTRICULAR HYPERTROPHY [SOME/ALL OF: PROMINENT R IN V1, LATE TRANSITION, RAD, KIERAN, SSS] Compared to ECG 02/03/2021 17:52:59 Atrial abnormality now present Sinus rhythm no longer present Ventricular premature complex(es) no longer present AV block, complete (third-degree) no longer present Electronically Signed On 02-04-2021 18:44:54 CDT by Dashawn Cárdenas M.D. [id number] f
[2021-02-03] MEDS: sodium chloride 0.45% 1,000 ML 75 ML IV (23:38)
--- NOTE | 2021-02-03 23:46 | PC.NURSE ---
Patient had a 25 beat run of Vtach come across monitoring screen. RN at bedside. EKG performed. Results relayed and reported to MD it consulting director. No new orders received. Mild chest discomfort reported by pt, but not enough in which pt would accept pain medications. Education given to patient on need for surgery. Patient now resting in bed with eyes closed. Bed low and locked, with call light in reach. No verbalized needs at this time.
[2021-02-04] VITALS (146 sets, daily range): BP systolic 85–183; BP diastolic 40–133; PULSE 35–68; RESP 11–26; TEMP 36.4–37.3; O2SAT 93–97; BMI 40.1
[2021-02-04 04:05] LABS: Basophils # 0.1 10^3/uL (0.0-0.1); Basophils % 0.7 %; Eosinophils # 0.2 10^3/uL (0.0-0.8); Eosinophils % 2.1 %; Hemoglobin 16.8 g/dL (11.7-16.6); Lymphocytes # 1.7 10^3/uL (0.8-4.8); Mean Corpuscular HGB Conc 33.6 g/dL (30.0-36.0); Mean Corpuscular Hemoglobin 31.6 pg (28.0-34.0); Mean Corpuscular Volume 94.2 fL (80-94); Mean Platelet Volume 10.6 fL (7.4-10.4); Monocytes # 0.6 10^3/uL (0.2-0.9); Monocytes % 8.3 %; Neutrophils # 4.58 10^3/uL (1.8-7.7); Neutrophils % 64.6 %; Nucleated Red Blood Cells % 0 %; Platelet Count 173 10^3/cmm (130-400); Red Blood Count 5.31 10^6/uL (4.1-5.3); Red Cell Distribution Width 12.9 % (12.1-15.1); White Blood Count 7.1 10^3/uL (4.0-10.0)
[2021-02-04 04:20] LABS: Alanine Aminotransferase 29 U/L (0-41); Albumin Level 3.8 g/dL (3.5-5.2); Alkaline Phosphatase 85 IU/L (40-130); Blood Urea Nitrogen 24 mg/dL (8-23); Calcium 9.1 mg/dL (8.5-10.5); Carbon Dioxide 22 mmol/L (22-29); Chloride 105 mmol/L (98-107); Glucose 169 mg/dL (65-115); Osmolality Calculated 290 mOsm/kg (285-295); Sodium 136 mmol/L (136-145); Total Bilirubin 0.6 mg/dL (0.15-1.2); Total Protein 5.8 g/dL (6.6-8.7)
[2021-02-04 04:27] LABS: Anion Gap 13.5 (5-19); Aspartate Amino Transferase 18 U/L (0-40); Potassium 4.5 mmol/L (3.5-5.1)
[2021-02-04] MEDS: hyDRALAzine 20 mg/mL INJ 1 mL IVP (04:52)
[2021-02-04 06:53] LABS: Magnesium 2.3 mg/dL (1.7-2.3)
--- NOTE | 2021-02-04 08:41 | PM.PN ---
Subjective Subjective: Interval history: The patient is feeling okay. He has some difficulty in passing urine. He has a history of? BPH. Denies any chest pain or chest tightness. No unusual shortness of breath. His blood pressure is still remains elevated in the 170s. It was in the 110s in the dry janitor Medications: Reviewed: Yes Medication Review Details: Current Medications Acetaminophen (Acetaminophen 325 Mg Tablet) 650 mg PO Q6H PRN PRN Reason: Mild/Mod Pain Or Temp >/= 101 Hydrocodone Bitart/Acetaminophen (Hydrocodone-Acetaminophen 5-325 Mg Tablet) 1 tab PO Q8H PRN PRN Reason: SEVERE PAIN Aspirin (Aspirin 81 Mg Ec Tablet) 81 mg PO PRN JOJO Atorvastatin Calcium (Atorvastatin 40 Mg Tablet) 40 mg PO MoWeFr@1800 [facility] Clotrimazole (Clotrimazole 1% Cream 30 Gm) 1 applic TOPICAL BID PRN PRN Reason: TOPICAL FUNGAL Divalproex Sodium (Divalproex Er 500 Mg Tablet (24h)) 1,000 mg PO BEDTIME [facility] Last Admin: 02/03/21 20:59 Dose: 1,000 mg Documented by: Enalaprilat (Enalaprilat 1.25 Mg/Ml Inj) 1.25 mg IVP Q4H PRN PRN Reason: SBP above 165 Last Admin: 02/03/21 16:54 Dose: 1.25 mg Documented by: Folic Acid (Folic Acid 1 Mg Tablet) 1 mg PO DAILY [facility] Last Admin: 02/04/21 08:38 Dose: Not Given Documented by: Hydralazine HCl (Hydralazine 50 Mg Tablet) 50 mg PO QID [facility] Last Admin: 02/04/21 08:43 Dose: 50 mg Documented by: Sodium Chloride (Sodium Chloride 0.45%) 1,000 mls @ 75 mls/hr IV .[id number] [facility] Last Admin: 02/03/21 23:38 Dose: 75 mls/hr Documented by: Cefazolin Sodium/Dextrose (Kefzol) 2 gm in 50 mls @ 100 mls/hr IV DIE CASTING MACHINE OPERATOR ONE; Protocol Stop: 02/04/21 09:14 Lorazepam (Lorazepam 2 Mg/Ml Inj 1 Ml) 2 mg IM PROTOCOL PRN; Protocol PRN Reason: ALCOWD Lorazepam (Lorazepam 2 Mg Tablet) 2 mg PO PROTOCOL PRN; Protocol PRN Reason: WITHDRAWAL Losartan Potassium (Losartan 50 Mg Tablet) 100 mg PO QAM [facility] Last Admin: 02/04/21 04:59 Dose: Not Given Documented by: Multivitamins Therapeutic (Multivitamin Therapeutic Tablet) 1 tab PO DAILY [facility] Last Admin: 02/04/21 08:38 Dose: Not Given Documented by: Multivitamins Therapeutic (Multivitamin Therapeutic Tablet) 1 tab PO DAILY [facility] Last Admin: 02/04/21 08:38 Dose: Not Given Documented by: Non-Formulary Medication (Bupropion Hcl) 150 mg PO 0600,2100 [facility] Non-Formulary Medication (Methylphenidate Hcl [Ritalin]) 20 mg PO BID [facility] Non-Formulary Medication (Vitamin B Complex) 1 tab PO DAILY [facility] Non-Formulary Medication (Glucosamine Hcl) 1,500 mg PO DAILY PRN PRN Reason: joint Non-Formulary Medication (Bupropion Hcl) 75 mg PO 1200 JOJO Ondansetron HCl (Ondansetron 2 Mg/Ml Sdv 2 Ml) 4 mg IVP Q6H PRN PRN Reason: NAUSEA AND VOMITING Thiamine Mononitrate (Thiamine 100 Mg Tablet) 100 mg PO DAILY [facility] Last Admin: 02/04/21 08:38 Dose: Not Given Documented by: Vitals/I&O/Wt Last Vital Signs Temp 97.7 F 02/04/21 08:00 Pulse 45 L 02/04/21 08:00 Resp 16 02/04/21 08:00 BP 168/58 02/04/21 08:00 Pulse Ox 95 02/04/21 08:00 02/03/21 02/04/21 02/04/21 22:59 06:59 14:59 Intake Total 390 / 390 0 / 390 Output Total 250 / 250 360 / 360 Balance 390 / 390 -250 / 140 -360 / -360 Weight last 48 hrs Weight 288 lb Weight 288 lb Physical Exam Narrative: EXAM NARRATIVE: GENERAL: The patient is alert and oriented times three. Not in any acute distress. HEENT: No significant pallor, icterus or lymphadenopathy. The pupils are reactant to light and are mildly dilated. Oral cavity: There are no mucous membrane lesions. NECK: Trachea appears to be central. No masses noted. No JVD or thyromegaly appreciated. No carotid bruit. RESPIRATORY: Chest is symmetrical. No intercostals muscle retraction or any accessory muscle activation. There is no chest wall tenderness. Breath sounds are heard bilaterally. No rales or rhonchi heard. No evidence of any consolidation. BREASTS: Deferred. HEART: S1 and S2 are normal. No S3 or S4 heard. Short ejection systolic murmur grade 3/6 in the aortic area . No pericardial rub or any click heard. ABDOMEN: No vessel pulsations or distention. No tenderness. No organomegaly appreciated. No abdominal bruit. Bowel sounds are normally heard. : Deferred. RECTAL: Deferred. LYMPHATIC: No lymphadenopathy noted in the neck or groin. EXTREMITIES: No edema or cyanosis. No clubbing. MUSCULOSKELETAL: No acute joint deformities or swelling SKIN: There are no significant scars or skin rash noted. NEUROPSYCHIATRIC: The patient is alert and oriented x3. Appears to be in a good mood. The higher functions are grossly within normal limits. No tremors or rigidity noted. Data : 02/04/21 03:51 02/04/21 03:51 Other Labs: Laboratory Last Values WBC 7.1 10^3/uL (4.0-10.0) 02/04/21 03:51 RBC 5.31 10^6/uL (4.1-5.3) H 02/04/21 03:51 Hgb 16.8 g/dL (11.7-16.6) H 02/04/21 03:51 Hct 50.0 % (42.0-52.0) 02/04/21 03:51 MCV 94.2 fL (80-94) H 02/04/21 03:51 MCH 31.6 pg (28.0-34.0) 02/04/21 03:51 MCHC 33.6 g/dL (30.0-36.0) 02/04/21 03:51 RDW 12.9 % (12.1-15.1) 02/04/21 03:51 Plt Count 173 10^3/cmm (130-400) 02/04/21 03:51 MPV 10.6 fL (7.4-10.4) H 02/04/21 03:51 Neut % (Auto) 64.6 % 02/04/21 03:51 Lymph % (Auto) 24.0 % 02/04/21 03:51 [place] % (Auto) 8.3 % 02/04/21 03:51 Eos % (Auto) 2.1 % 02/04/21 03:51 Baso % (Auto) 0.7 % 02/04/21 03:51 Neut # (Auto) 4.58 10^3/uL (1.8-7.7) 02/04/21 03:51 Lymph # (Auto) 1.7 10^3/uL (0.8-4.8) 02/04/21 03:51 [place] # (Auto) 0.6 10^3/uL (0.2-0.9) 02/04/21 03:51 Eos # (Auto) 0.2 10^3/uL (0.0-0.8) 02/04/21 03:51 Baso # (Auto) 0.1 10^3/uL (0.0-0.1) 02/04/21 03:51 Nucleated RBC % (auto) 0 % 02/04/21 03:51 Nucleated RBCs # 0.0 /100WBC 02/04/21 03:51 Sodium 136 mmol/L (136-145) 02/04/21 03:51 Potassium 4.5 mmol/L (3.5-5.1) 02/04/21 03:51 Chloride 105 mmol/L (98-107) 02/04/21 03:51 Carbon Dioxide 22 mmol/L (22-29) 02/04/21 03:51 Anion Gap 13.5 (5-19) 02/04/21 03:51 BUN 24 mg/dL (8-23) H 02/04/21 03:51 Creatinine 1.2 mg/dL (0.7-1.2) 02/04/21 03:51 GFR Calculation 60.0 mL/min (90-130) L 02/04/21 03:51 Glucose 169 mg/dL (65-115) H 02/04/21 03:51 Calculated Osmolality 290 mOsm/kg (285-295) 02/04/21 03:51 Calcium 9.1 mg/dL (8.5-10.5) 02/04/21 03:51 Magnesium 2.3 mg/dL (1.7-2.3) 02/04/21 03:58 Total Bilirubin 0.6 mg/dL (0.15-1.2) 02/04/21 03:51 AST 18 U/L (0-40) 02/04/21 03:51 ALT 29 U/L (0-41) 02/04/21 03:51 Alkaline Phosphatase 85 IU/L (40-130) 02/04/21 03:51 Creatine Kinase 110 U/L (39-308) 02/03/21 12:52 Troponin T Baseline 28 ng/L (0-15) H 02/03/21 12:52 Troponin T 120 Minute 26.18 ng/L (0-15) H 02/03/21 14:57 Delta Troponin T -1.82 ABS# (0-10) L 02/03/21 14:57 Troponin T Hi Sens 6Hr 25.93 ng/L (0-15) H 02/03/21 19:48 Troponin T Hi Sens 6Hr Delta -2.07 ng/L (0-12) L 02/03/21 19:48 Total Protein 5.8 g/dL (6.6-8.7) L 02/04/21 03:51 Albumin 3.8 g/dL (3.5-5.2) 02/04/21 03:51 Globulin 2.0 g/dL (1.3-4.6) 02/04/21 03:51 TSH 2.37 uIU/mL (0.27-4.20) 02/03/21 12:52 Urine Color Yellow (Yellow) 02/03/21 13:35 Urine Appearance Clear (CLEAR) 02/03/21 13:35 Urine pH 5 (5-7) 02/03/21 13:35 Ur Specific [place] 1.020 (1.005-1.030) 02/03/21 13:35 Urine Protein Neg (Negative) 02/03/21 13:35 Urine Glucose (UA) 1+ (Normal) 02/03/21 13:35 Urine Ketones Negative (Negative) 02/03/21 13:35 Urine Blood Neg (Negative) 02/03/21 13:35 Urine Nitrate Negative (Negative) 02/03/21 13:35 Urine Bilirubin Neg (Negative) 02/03/21 13:35 Urine Urobilinogen Norm mg/dL (Negative) 02/03/21 13:35 Ur Leukocyte Esterase Negative (Negative) 02/03/21 13:35 A&P Assessment and plan (1) Heart block AV third degree: Patient requires a permanent pacer implantation, for further management of his condition. This was discussed with the patient in detail which he understood well. We may consider doing a temporary pacemaker wire insertion prior to the permanent pacemaker procedure. These procedures were discussed with the patient in detail. The risk of bleeding, hematoma, vascular injury, pneumothorax, infection, renal failure and other concomitant complications were explained in detail. The patient [] understood this well and consented to proceed. The patient is scheduled for the procedure this morning. Status: Acute (2) Accelerated hypertension: The blood pressure seems to be slowly getting under control. Status: Acute (3) Hx of hyperlipidemia: May continue on the current medications. Status: Acute (4) NAILA (obstructive sleep apnea): Continue the current management. Status: Acute (5) Shortness of breath: Most likely related to the bradycardia. The BNP was only minimally elevated. Status: Acute Additional A&P Information Based on the patient's clinical progress and the results of the above, further recommendations will be made. Thank you for the opportunity to evaluate this patient and make these recommendations Attestations Medical Necessity Statement*: Patient requires continued hospital stay for close monitoring and further management Coding Level of Care Code Acute Stone Mill Operator for g Fwd Diagnoses Heart block AV third degree I44.2 Accelerated hypertension I10 Hx of hyperlipidemia Z86.39 NAILA (obstructive sleep apnea) G47.33 Shortness of breath R06.02
[2021-02-04] MEDS: hyDRALAzine 50 mg Tablet PO ×2 (08:43→14:17)
--- NOTE | 2021-02-04 08:49 | W.PM.OPSUD ---
Surgery/Procedure H&P Update DATE OF PROCEDURE: February 04, 2021 DATE H&P PERFORMED: 02/03/21 H&P UPDATE INFORMATION: I have reviewed H&P completed within last 30 days, I have examined patient prior to procedure and No changes to prior documentation PREOP DIAGNOSIS: Symptomatic bradycardia/third-degree heart block PRIMARY INDICATION FOR PROCEDURE: As above PLANNED PROCEDURE: Transvenous temporary pacemaker through the right common femoral vein Transvenous dual-chamber permanent pacer implantation through the right subclavian vein Subclavian venogram PATIENT REASSESSED PRIOR TO SEDATION, WITH NO CHANGE NOTED: Yes PHYSICAL EXAM: alert, clear to auscultation bilaterally and regular rate & rhythm AIRWAY EVAL/ANESTHESIA PLAN: ASA II, Monitored Anesthesia, Local Anesthesia, Risks, benefits & alternatives of sedation and/or procedure discussed and Patient agrees to continue as planned
[2021-02-04 10:23] LABS: INR 1.02 (0.8-1.2)
[2021-02-04 10:24] LABS: Partial Thromboplastin Time 29.3 SECONDS (23.9-36.7)
--- NOTE | 2021-02-04 11:07 | PC.NURSE ---
0266 Dr. Chiu at bedside. Reviewed vital signs. Orders to give am dose of hydralazine. Reviewed EKG. Reported PT c/o urinary retention. Orders for bladder scan. Informed PT he may need a Tineo. PT states he does not want a Tineo. Dr. Chiu told PT he could have Tineo placed in laborer construction or leak gang after sedation had been initiated. 1641 Dr. Wiley at bedside. Discussed vitals, urinary retention, and medications. 1015 PT to laborer construction or leak gang with laborer construction or leak gang RNs. Reported urinary retention and plan for Tineo placement.
--- NOTE | 2021-02-04 11:58 | PM.PN ---
Subjective Subjective: Interval history: Doing okay. No significant changes or events. Denies chest pain or palpitations. Denies dizziness or lightheadedness. No tremors. Medications: Reviewed: Yes Medication Review Details: Generic Name Dose Route Start Last Admin Trade Name Freq PRN Reason Stop Dose Admin Divalproex Sodium 1,000 mg 02/03/21 21:00 02/03/21 20:59 Divalproex Er 50 0 Mg Tablet (24h) PO 1,000 mg BEDTIME JOJO Administration Enalaprilat 1.25 mg 02/03/21 13:45 02/03/21 16:54 Enalaprilat 1.25 Mg/Ml Inj IVP 1.25 mg Q4H PRN Administration SBP above 165 Folic Acid 1 mg 02/04/21 09:00 02/04/21 08:38 Folic Acid 1 Mg Tablet PO Not Given DAILY JOJO Hydralazine HCl 50 mg 02/03/21 18:00 02/04/21 08:43 Hydralazine 50 M g Tablet PO 50 mg QID JOJO Administration Sodium Chloride 1,000 mls @ 75 ml s/hr 02/03/21 23:55 02/03/21 23:38 Sodium Chloride 0.45% IV 75 mls/hr .[id number] JOJO Administration Losartan Potassium 100 mg 02/04/21 06:00 02/04/21 04:59 Losartan 50 Mg T ablet PO Not Given QAM JOJO Multivitamins Ther apeutic 1 tab 02/04/21 09:00 02/04/21 08:38 Multivitamin The rapeutic Tablet PO Not Given DAILY JOJO Multivitamins Ther apeutic 1 tab 02/04/21 09:00 02/04/21 08:38 Multivitamin The rapeutic Tablet PO Not Given DAILY JOJO Thiamine Mononitra te 100 mg 02/04/21 09:00 02/04/21 08:38 Thiamine 100 Mg Tablet PO Not Given DAILY JOJO Vitals/I&O/Wt Last Vital Signs Temp 97.7 F 02/04/21 08:00 Pulse 44 L 02/04/21 10:00 Resp 14 02/04/21 10:00 BP 129/49 02/04/21 10:00 Pulse Ox 95 02/04/21 10:00 02/03/21 02/04/21 02/04/21 22:59 06:59 14:59 Intake Total 390 / 390 0 / 390 Output Total 250 / 250 870 / 870 Balance 390 / 390 -250 / 140 -870 / -870 Weight last 48 hrs Weight 130.635 kg Weight 130.635 kg Physical Exam Narrative: EXAM NARRATIVE: The patient is awake alert and oriented. No acute distress. Mood and affect are appropriate. Responses are adequate. Skin is warm and dry. Moist mucous membranes. Eyes PERRL, extraocular muscles are intact Neck supple. No JVD Lungs clear to auscultation bilaterally. Heart S1, S2, irregular Abdomen soft, obese, nontender, bowel sounds are present Extremities no edema cyanosis or calf tenderness bilaterally Neuro evaluation is nonfocal. normal speech. No tremors Data : 02/04/21 03:51 02/04/21 03:51 A&P Additional A&P Information 70-year-old male being admitted for third-degree AV block. Heart block with bradycardia. Being admitted to ICU. Permanent pacemaker will be placed today. Ndac-yuzc-edhbddmm patient. Hypertension, uncontrolled. We will continue home hydralazine and Benicar and prn Vasotec. Diabetes. His A1c was about 7.8 last time. The patient asked me not to order insulin sliding scale. He does not want insulin. We will hold his Metformin while he is hospitalized. We will closely monitor his blood sugar. DVT prophylaxis. Teds and SCDs. No anticoagulation due to upcoming procedure. CODE STATUS. Full code. EtOH. No evidence of withdrawals. Continue CIWA protocol and replacement of vitamins. The plan of care was discussed with the patient and his . They verbalized understanding and agreement. Attestations Medical Necessity Statement*: Probably home tomorrow Coding Level of Care Code Acute Wind Instrument Repairer for Leonel Evans
--- NOTE | 2021-02-04 13:28 | PC.CHAP ---
Pastoral Care Encounter/Spiritual Assessment Type of Contact [] Declined wind energy systems installer visit [] Patient/Family/Request visit [] Outpatient visit [] Follow-up visit [] Physician referral [] Code/Alert [] Routine visit [] Staff referral [] Actively dying [] Patient sleeping [] Family support [] [xx] Out of room [] Palliative care [] [] Receiving care in room [] Pre-surgical visit [] Trauma [] Long length of stay [xx] ICU visit [] Other: Relational/Emotional Strength [] Patient feels connected with others/family/visitors/staff [] Distress [] Loneliness/isolation [] Abandonment Spirituality of Patient [] Person of Adelina [] Attends Denominational of their Adelina [] Believes in Prayer [] Reads Bible or Restoration materials [] There are Spiritual issues to be addressed Phthalic Acid Purifier Interventions [] Prayer [] Active listening [] Non-anxious presence [] Spiritual/emotional support [] Crisis/trauma care [] Spiritual counseling [] Bereavement support [] Provided bereavement packet [] Provided Bible/devotional materials [] Provided toy/stuffed animal, coloring book to patient or family member [] Provided Communion [] Anointing/[place] [] Salvation [] Completed spiritual assessment [] Other: Impact on Illness or Injury [] Angry [] Fearful [] Anxious [] Often cries [] Exhaustion [] Unable to work [] Unable to attend druze [] Unable to walk/stand [] Unable to read [] Unable to drive [] Unable to eat/drink [] Unable to sleep [] Unable to be with family [] Patient intubated [] Other: Summary Follow up. Patient out of room. Time spent with patient
[2021-02-04] MEDS: HYDROcodone-acetaminophen 5-325 mg Tablet 1 TAB PO (14:17)
[2021-02-04] MEDS: sodium chloride 0.45% 1,000 ML 75 ML IV (14:18)
--- NOTE | 2021-02-04 14:35 | PM.OP ---
Operative Report Date of procedure: February 04, 2021 Pre-op Diagnosis: Symptomatic bradycardia/third-degree heart block Procedure: LOCATION: ICU PREOPERATIVE DIAGNOSES: Symptomatic bradycardia/complete heart block. POSTOPERATIVE DIAGNOSES: Same. COMPLICATIONS: None. ESTIMATED BLOOD LOSS: Around 5 milliliters. BRIEF HISTORY: This is a 70-year-old white male with history of hypertension, type 2 diabetes, dyslipidemia, obstructive sleep apnea, presented with shortness of breath for last 2 weeks. Patient get extremely short of breath with minimal activities. He was found to be in third-degree heart block with a heart rate in the low 40s. We could not identify any reversible causes for this. For further management of his condition, a permanent pacemaker implantation was recommended. A dual-chamber permanent pacemaker implantation was recommended for further management of her condition-AV synchrony and symptom relief. The procedure was explained to the patient in detail with the risks and benefits. The risks of bleeding, hematoma, vascular injury, infection, pneumothorax, myocardial perforation and other concomitant complications were explained in detail, which the patient understood well and consented to proceed. PROCEDURE DESCRIPTION: The patient was brought to the Cardiac Catheterization Lab. The left and the right side of the neck and the subclavian area were cleaned and draped in a sterile fashion. 1% Xylocaine was used as the local anesthetic agent. A right subclavian venous access was obtained using a micropuncture needle system. Under venographic guidance, the patient was injected with 20 milliliters of Omnipaque through the right antecubital vein. A two-inch long incision was made 2.0 centimeters below the midclavicular region. By sharp and blunt dissection, a pacemaker pocket was made. A second venous access was obtained using another micropuncture needle system. Over the first guidewire, a 7-Setswana venous sheath with dilator was advanced. The venous dilator and the guidewire were taken out. A screw-in ventricular lead was advanced through the venous sheath and was positioned towards the right ventricle. Under fluoroscopy guidance, the ventricular lead was positioned toward the right ventricular apex. Good pacing and sensing thresholds were obtained. The lead was secured to the endocardium by advancing the helix. The stability of the lead was tested by gentle twisting movements and also by asking the patient to take some deep breaths and cough. The venous sheath was peeled off, at this time. The lead was secured to the pectoralis fascia, by suturing with 1-0 Surgilon. Over the second guidewire, another 7-Setswana venous sheath with dilator was advanced. The dilator and the guidewire were taken out. Under fluoroscopic guidance, an atrial lead (Medtronic), was advanced and positioned toward the right atrium. The lead was positioned in to the lateral wall of the right atrium since we could not find the appropriate site in the atrial appendage with good sensing. Good pacing and sensing thresholds were obtained. The lead was secured to the endocardium by advancing the helix. Stability of the lead was tested by gentle twisting movements and also by asking the patient to take some deep breaths and cough. The venous sheath was peeled off, at this time. The lead was secured to the pectoralis fascia by suturing with 0-Surgilon. The pacemaker pocket was copiously irrigated with vancomycin solution. Complete hemostasis was achieved. Sponge counts were confirmed. The leads were attached to a Medtronic generator. The leads were positioned behind the generator and the generator was attached to the pectoralis fascia by suturing with 0-Surgilon. The pocket was closed in layers. Skin was approximated using 4-0 Vicryl. IMPLANTED DEVICES: ATRIAL LEAD: Model number: 5076/45 Serial number: [id number] Make: Medtronic VENTRICULAR LEAD: Model number: 5076/52 Serial number: [id number] Make: Medtronic GENERATOR Brand: Seda XT DR MCCRAY SuleimanDonkeisha Model number: [id number] Serial number: [id number] Make: Medtronic IMPLANTATION DATA: With the pacing system analyzer, the R wave sensing was 6.1 millivolts with a lead impedance of 1264 and a pacing threshold was 0.8 volts at 0.4 milliseconds. In the atrium, the sensing was 1.8 millivolts with a lead impedance of 575 ohms and a pacing threshold was 1.0 volts at 0.4 milliseconds. Through the device, the R-wave sensing was not obtained because of the pacemaker dependency. The lead impedance of 126 and a pacing threshold 0.75 volts at 0.4 milliseconds. The atrial sensing was 1.9 millivolts with a lead impedance of 551 ohms and a pacing threshold of 1.0 volts at 0.4 milliseconds. The pacemaker was set for DDDR mode with upper rate of 130 and a lower rate of 60. A pressure dressing was applied over the pacemaker site. The patient was transferred to the Medical Floor in stable condition. A chest x-ray was ordered to confirm the lead position and also to rule out any pneumothorax.
--- NOTE | 2021-02-04 17:52 | XRR_ITS ---
PROCEDURE INFORMATION: Exam: XR Chest Exam date and time: 02/04/2021 6:05 PM Age: 70 years old Clinical indication: Cough and dyspnea; Prior surgery; Surgery date: Post-operative (0-2 days); Surgery type: Pacemaker; Additional info: Dyspnea/cough TECHNIQUE: Imaging protocol: XR of the chest Views: 1 view. COMPARISON: CR XR chest 1V portable [id number] 02/03/2021 12:59 PM FINDINGS: Lungs: There are some subtle increased interstitial markings seen predominately within the left hemithorax and some increased peribronchial markings are seen in the right lower hemithorax, findings that could represent mild asymmetric pulmonary edema although a mild pneumonitis cannot be entirely excluded. Pleural spaces: Unremarkable. No pleural effusion. No pneumothorax. Heart/Mediastinum: Unremarkable. No cardiomegaly. Vasculature: A sequential bipolar pacemaker is placed via the right subclavian vein with leads superimposed over the right atrium and right ventricle. Bones/joints: Unremarkable. XR/XR chest 1V portable [id number] IMPRESSION: Subtle increased interstitial markings seen in the left hemithorax and increased peribronchial markings present in right lower hemithorax could represent mild asymmetric pulmonary edema although a mild pneumonitis cannot be excluded.
[2021-02-04] MEDS: morphine 4 mg/mL SDV 1 mL IVP (18:20)
[2021-02-04] MEDS: atorvastatin 40 mg Tablet PO (18:21)
--- NOTE | 2021-02-04 19:04 | PC.NURSE ---
1819 Dr. Chiu at bedside. Reviewed vital signs, heart rhythm, pain, uop, and activity. Reported that 1699 hydralazine was held d/t blood pressure.
[2021-02-04] MEDS: HYDROcodone-acetaminophen 7.5-325 mg Tablet 1 TAB PO (19:38)
[2021-02-04] MEDS: divalproex ER 500 mg Tablet (24H) 1000 MG PO (20:26)
--- NOTE | 2021-02-04 21:53 | PC.NURSE ---
2100 order of PO Hydralazine held based on pt's v/s. MD space operations notified.
[2021-02-05] VITALS (36 sets, daily range): BP systolic 96–161; BP diastolic 58–95; PULSE 60–67; RESP 9–28; TEMP 36.6–37.4; O2SAT 92–96
[2021-02-05] MEDS: sodium chloride 0.45% 1,000 ML 75 ML IV (03:45)
[2021-02-05] MEDS: acetaminophen 325 mg Tablet 650 MG PO (04:05)
--- NOTE | 2021-02-05 06:00 | XRR_ITS ---
PROCEDURE INFORMATION: Exam: XR Chest Exam date and time: 02/04/2021 11:59 PM Age: 70 years old Clinical indication: Device placement; Cardiac pacemaker placement or adjustment; Prior surgery; Surgery date: Post-operative (0-2 days); Additional info: Post permanent pacemaker placement; Visualize lead tip TECHNIQUE: Imaging protocol: XR of the chest Views: 1 view. COMPARISON: CR XR chest 1V portable [id number] 02/04/2021 5:54 PM FINDINGS: Lungs: There is indistinctness and mild prominence of the pulmonary vasculature and some increased interstitial markings present bilaterally, left slightly more prominent than right, findings suggesting pulmonary edema. Pleural spaces: Unremarkable. No pleural effusion. No pneumothorax. Heart/Mediastinum: Unremarkable. No cardiomegaly. Vasculature: A sequential bipolar pacemaker is placed via the right subclavian vein with leads superimposed over the right atrium and right ventricle. Bones/joints: Unremarkable. XR/XR chest 1V [id number] IMPRESSION: Mild prominence and indistinctness of the pulmonary vasculature and some increased interstitial markings present in the hemithoraces, findings suggesting pulmonary edema.
--- NOTE | 2021-02-05 06:00 | ECG_ITS ---
[facility] Test Date: 2021-02-05 Pat Name: Gurinder Downing Department: Room: ICU11 Gender: Male Agitator Operator: : 1950 Requested By: Julita Chiu Order Number: [id number] Alfie MD: Julita Chiu M.D. Measurements Intervals [place] Rate: 62 P: 96 KS: 181 QRS: -71 QRSD: 183 T: 87 QT: 525 QTc: 535 Interpretive Statements ELECTRONIC ATRIAL PACEMAKER ELECTRONIC VENTRICULAR PACEMAKER ABNORMAL RHYTHM ECG Compared to ECG 02/03/2021 22:52:31 Atrial fibrillation no longer present Intraventricular conduction delay no longer present Atrial abnormality no longer present Electronically Signed On 02-05-2021 20:33:56 CDT by Julita Chiu M.D. [id number]
[2021-02-05] MEDS: HYDROcodone-acetaminophen 7.5-325 mg Tablet 1 TAB PO ×2 (08:38→14:56)
[2021-02-05] MEDS: thiamine 100 mg Tablet PO (08:38)
[2021-02-05] MEDS: folic acid 1 mg Tablet PO (08:39)
[2021-02-05] MEDS: multivitamin therapeutic Tablet 1 TAB PO (08:39)
--- NOTE | 2021-02-05 12:03 | P.PN_ITS ---
Subjective Subjective: Interval history: The patient is feeling okay. Denies any unusual chest pain or shortness of breath. Complaining of generalized aches and pains. Also has some pain at the incision site. The overall symptoms are improving. No fever or chills. Has been getting the antibiotics with no side effects. The pacemaker was interrogated this morning and was found to be functioning okay. The chest x-ray done yesterday revealed no evidence of pneumothorax. The atrial and ventricular leads are appropriately placed. Medications: Reviewed: Yes Medication Review Details: Current Medications Acetaminophen (Acetaminophen 325 Mg Tablet) 650 mg PO Q6H PRN PRN Reason: Mild/Mod Pain Or Temp >/= 101 Last Admin: 02/05/21 04:05 Dose: 650 mg Documented by: Hydrocodone Bitart/Acetaminophen (Hydrocodone-Acetaminophen 7.5-325 Mg Tablet) 1 tab PO Q6H PRN PRN Reason: MODERATE PAIN Last Admin: 02/05/21 08:38 Dose: 1 tab Documented by: Aspirin (Aspirin 81 Mg Ec Tablet) 81 mg PO PRN REPLACED BY [facility] Atorvastatin Calcium (Atorvastatin 40 Mg Tablet) 40 mg PO MoWeFr@1800 REPLACED BY [facility] Last Admin: 02/04/21 18:21 Dose: 40 mg Documented by: Clotrimazole (Clotrimazole 1% Cream 30 Gm) 1 applic TOPICAL BID PRN PRN Reason: TOPICAL FUNGAL Divalproex Sodium (Divalproex Er 500 Mg Tablet (24h)) 1,000 mg PO BEDTIME REPLACED BY [facility] Last Admin: 02/04/21 20:26 Dose: 1,000 mg Documented by: Enalaprilat (Enalaprilat 1.25 Mg/Ml Inj) 1.25 mg IVP Q4H PRN PRN Reason: SBP above 165 Last Admin: 02/03/21 16:54 Dose: 1.25 mg Documented by: Folic Acid (Folic Acid 1 Mg Tablet) 1 mg PO DAILY REPLACED BY [facility] Last Admin: 02/05/21 08:39 Dose: 1 mg Documented by: Hydralazine HCl (Hydralazine 50 Mg Tablet) 50 mg PO QID REPLACED BY [facility] Last Admin: 02/05/21 08:39 Dose: Not Given Documented by: Lorazepam (Lorazepam 2 Mg/Ml Inj 1 Ml) 2 mg IM PROTOCOL PRN; Protocol PRN Reason: ALCOWD Lorazepam (Lorazepam 2 Mg Tablet) 2 mg PO PROTOCOL PRN; Protocol PRN Reason: WITHDRAWAL Losartan Potassium (Losartan 50 Mg Tablet) 100 mg PO QAM REPLACED BY [facility] Last Admin: 02/05/21 06:23 Dose: Not Given Documented by: Morphine Sulfate (Morphine 4 Mg/Ml Sdv 1 Ml) 4 mg IVP Q4H PRN PRN Reason: SEVERE PAIN Last Admin: 02/04/21 18:20 Dose: 4 mg Documented by: Multivitamins Therapeutic (Multivitamin Therapeutic Tablet) 1 tab PO DAILY REPLACED BY [facility] Last Admin: 02/05/21 08:39 Dose: 1 tab Documented by: Multivitamins Therapeutic (Multivitamin Therapeutic Tablet) 1 tab PO DAILY REPLACED BY [facility] Last Admin: 02/05/21 08:40 Dose: Not Given Documented by: Non-Formulary Medication (Bupropion Hcl) 150 mg PO 0600,2100 REPLACED BY [facility] Last Admin: 02/05/21 06:14 Dose: Not Given Documented by: Non-Formulary Medication (Methylphenidate Hcl [Ritalin]) 20 mg PO BID REPLACED BY [facility] Non-Formulary Medication (Vitamin B Complex) 1 tab PO DAILY REPLACED BY [facility] Non-Formulary Medication (Glucosamine Hcl) 1,500 mg PO DAILY PRN PRN Reason: joint Non-Formulary Medication (Bupropion Hcl) 75 mg PO 1200 REPLACED BY [facility] Last Admin: 02/05/21 11:36 Dose: Not Given Documented by: Ondansetron HCl (Ondansetron 2 Mg/Ml Sdv 2 Ml) 4 mg IVP Q6H PRN PRN Reason: NAUSEA AND VOMITING Thiamine Mononitrate (Thiamine 100 Mg Tablet) 100 mg PO DAILY REPLACED BY [facility] Last Admin: 02/05/21 08:38 Dose: 100 mg Documented by: Vitals/I&O/Wt Last Vital Signs Temp 97.8 F 02/05/21 11:00 Pulse 63 02/05/21 11:00 Resp 18 02/05/21 11:00 BP 133/83 02/05/21 11:00 Pulse Ox 95 02/05/21 11:00 02/04/21 02/05/21 02/05/21 22:59 06:59 14:59 Intake Total 901 / 1901 1365 / 3266 300 / 300 Output Total 100 / 970 650 / 1620 Balance 801 / 931 715 / 1646 300 / 300 Weight last 48 hrs Weight 288 lb 0.578 oz Weight 4.609 oz Weight 288 lb Weight 288 lb Physical Exam Narrative: EXAM NARRATIVE: GENERAL: The patient is alert and oriented times three. Not in any acute distress. HEENT: No significant pallor, icterus or lymphadenopathy. The pupils are reactant to light and are mildly dilated. Oral cavity: There are no mucous membrane lesions. NECK: Trachea appears to be central. No masses noted. No JVD or thyromegaly appreciated. No carotid bruit. RESPIRATORY: Chest is symmetrical. No intercostals muscle retraction or any accessory muscle activation. There is no chest wall tenderness. Breath sounds are heard bilaterally. No rales or rhonchi heard. No evidence of any consolidation. The pacemaker incision site at the right subclavian region has no hematoma or bleeding. BREASTS: Deferred. HEART: S1 and S2 are normal. No S3 or S4 heard. Short ejection systolic murmur grade 3/6 in the aortic area . No pericardial rub or any click heard. ABDOMEN: No vessel pulsations or distention. No tenderness. No organomegaly appreciated. No abdominal bruit. Bowel sounds are normally heard. : Deferred. RECTAL: Deferred. LYMPHATIC: No lymphadenopathy noted in the neck or groin. EXTREMITIES: No edema or cyanosis. No clubbing. MUSCULOSKELETAL: No acute joint deformities or swelling SKIN: There are no significant scars or skin rash noted. NEUROPSYCHIATRIC: The patient is alert and oriented x3. Appears to be in a good mood. The higher functions are grossly within normal limits. No tremors or rigidity noted. Const: COMMON NORMALS: alert Resp: COMMON NORMALS: clear to auscultation bilaterally AUSCULTATION: clear to auscultation bilaterally Neuro: SENSORIUM/ORIENTATION: Yes alert Data : 02/04/21 03:51 02/04/21 03:51 Other Labs: Laboratory Last Values WBC 7.1 10^3/uL (4.0-10.0) 02/04/21 03:51 RBC 5.31 10^6/uL (4.1-5.3) H 02/04/21 03:51 Hgb 16.8 g/dL (11.7-16.6) H 02/04/21 03:51 Hct 50.0 % (42.0-52.0) 02/04/21 03:51 MCV 94.2 fL (80-94) H 02/04/21 03:51 MCH 31.6 pg (28.0-34.0) 02/04/21 03:51 MCHC 33.6 g/dL (30.0-36.0) 02/04/21 03:51 RDW 12.9 % (12.1-15.1) 02/04/21 03:51 Plt Count 173 10^3/cmm (130-400) 02/04/21 03:51 MPV 10.6 fL (7.4-10.4) H 02/04/21 03:51 Neut % (Auto) 64.6 % 02/04/21 03:51 Lymph % (Auto) 24.0 % 02/04/21 03:51 [place] % (Auto) 8.3 % 02/04/21 03:51 Eos % (Auto) 2.1 % 02/04/21 03:51 Baso % (Auto) 0.7 % 02/04/21 03:51 Neut # (Auto) 4.58 10^3/uL (1.8-7.7) 02/04/21 03:51 Lymph # (Auto) 1.7 10^3/uL (0.8-4.8) 02/04/21 03:51 [place] # (Auto) 0.6 10^3/uL (0.2-0.9) 02/04/21 03:51 Eos # (Auto) 0.2 10^3/uL (0.0-0.8) 02/04/21 03:51 Baso # (Auto) 0.1 10^3/uL (0.0-0.1) 02/04/21 03:51 Nucleated RBC % (auto) 0 % 02/04/21 03:51 Nucleated RBCs # 0.0 /100WBC 02/04/21 03:51 PT 13.70 SECONDS (12.1-14.9) 02/04/21 09:55 INR 1.02 (0.8-1.2) 02/04/21 09:55 APTT 29.3 SECONDS (23.9-36.7) 02/04/21 09:55 Sodium 136 mmol/L (136-145) 02/04/21 03:51 Potassium 4.5 mmol/L (3.5-5.1) 02/04/21 03:51 Chloride 105 mmol/L (98-107) 02/04/21 03:51 Carbon Dioxide 22 mmol/L (22-29) 02/04/21 03:51 Anion Gap 13.5 (5-19) 02/04/21 03:51 BUN 24 mg/dL (8-23) H 02/04/21 03:51 Creatinine 1.2 mg/dL (0.7-1.2) 02/04/21 03:51 GFR Calculation 60.0 mL/min (90-130) L 02/04/21 03:51 Glucose 169 mg/dL (65-115) H 02/04/21 03:51 Calculated Osmolality 290 mOsm/kg (285-295) 02/04/21 03:51 Calcium 9.1 mg/dL (8.5-10.5) 02/04/21 03:51 Magnesium 2.3 mg/dL (1.7-2.3) 02/04/21 03:58 Total Bilirubin 0.6 mg/dL (0.15-1.2) 02/04/21 03:51 AST 18 U/L (0-40) 02/04/21 03:51 ALT 29 U/L (0-41) 02/04/21 03:51 Alkaline Phosphatase 85 IU/L (40-130) 02/04/21 03:51 Creatine Kinase 110 U/L (39-308) 02/03/21 12:52 Troponin T Baseline 28 ng/L (0-15) H 02/03/21 12:52 Troponin T 120 Minute 26.18 ng/L (0-15) H 02/03/21 14:57 Delta Troponin T -1.82 ABS# (0-10) L 02/03/21 14:57 Troponin T Hi Sens 6Hr 25.93 ng/L (0-15) H 02/03/21 19:48 Troponin T Hi Sens 6Hr Delta -2.07 ng/L (0-12) L 02/03/21 19:48 Total Protein 5.8 g/dL (6.6-8.7) L 02/04/21 03:51 Albumin 3.8 g/dL (3.5-5.2) 02/04/21 03:51 Globulin 2.0 g/dL (1.3-4.6) 02/04/21 03:51 TSH 2.37 uIU/mL (0.27-4.20) 02/03/21 12:52 Urine Color Yellow (Yellow) 02/03/21 13:35 Urine Appearance Clear (CLEAR) 02/03/21 13:35 Urine pH 5 (5-7) 02/03/21 13:35 Ur Specific [place] 1.020 (1.005-1.030) 02/03/21 13:35 Urine Protein Neg (Negative) 02/03/21 13:35 Urine Glucose (UA) 1+ (Normal) 02/03/21 13:35 Urine Ketones Negative (Negative) 02/03/21 13:35 Urine Blood Neg (Negative) 02/03/21 13:35 Urine Nitrate Negative (Negative) 02/03/21 13:35 Urine Bilirubin Neg (Negative) 02/03/21 13:35 Urine Urobilinogen Norm mg/dL (Negative) 02/03/21 13:35 Ur Leukocyte Esterase Negative (Negative) 02/03/21 13:35 A&P Assessment and plan (1) Presence of permanent cardiac pacemaker: Patient had the permanent pacer implantation yesterday. Currently is doing okay. Pacemaker function is appropriate. Status: Acute (2) Heart block AV third degree: Currently the patient is pacemaker dependent Status: Acute (3) Accelerated hypertension: The patient is tolerating the medication so far well. Blood pressure seems to be getting under control. Status: Acute (4) Hx of hyperlipidemia: May continue on the current medications. Status: Acute (5) NAILA (obstructive sleep apnea): Continue the current management. Status: Acute (6) Shortness of breath: The dyspnea on exertion is improving Status: Acute Additional A&P Information If the patient continues remain stable, may be discharged home today. He may be continued on the losartan 100 mg p.o. daily, hydralazine 50 mg p.o. every 8 hours and amlodipine 2.5 mg p.o. daily. Also may start on Keflex 500 mg p.o. every 6 hours for 5 days with the multivitamins 1 tablet daily for 2 weeks Appointment at the heart care services to be seen by the nurse practitioner in 1 week I may see him in the office in 1 month Attestations Medical Necessity Statement*: Possible discharge home today Coding Level of Care Code Acute Newspaper Clipper for Chg Fwd Diagnoses Presence of permanent cardiac pacemaker Z95.0 Heart block AV third degree I44.2 Accelerated hypertension I10 Hx of hyperlipidemia Z86.39 NAILA (obstructive sleep apnea) G47.33 Shortness of breath R06.02
--- NOTE | 2021-02-05 12:42 | PM.DCS ---
Discharge Providers Date of Admission: 02/03/21 12:58 Date of Discharge: February 05, 2021 Attending Provider at Admission: Anil Wiley Attending Provider at Discharge: Anil Wiley Diagnoses at Discharge Discharge Diagnosis (1) Presence of permanent cardiac pacemaker: Status: Acute (2) Heart block AV third degree: Status: Acute (3) Accelerated hypertension: Status: Acute (4) Hx of hyperlipidemia: Status: Acute (5) NAILA (obstructive sleep apnea): Status: Acute (6) Shortness of breath: Status: Acute Reason for Visit Reason for Visit: SOB, SENT OVER BY DR. CHIU Hospital Course Hospital Course 70-year-old male being admitted for third-degree AV block. Discharge diagnoses and problem list Heart block with bradycardia. Status post permanent dual-chamber pacemaker placement by Dr. Chiu. Currently doing better. The pain is well controlled. Cleared for discharge by Dr. Chiu. Discharge instructions are discussed. Currently he is feeling well and is eager to go home. Hypertension, uncontrolled initial. Blood pressure medications are adjusted. Currently improved control. The patient experienced some transient hypotension this morning which we suspect was due to pain medications. Currently it is improved. He is instructed to closely watch his blood pressure and contact his provider if he develops any lightheadedness, dizziness, chest pain, shortness of breath, palpitations, or any other new complaints. Diabetes. His A1c was about 7.8 last time. We are resuming his home Metformin. EtOH. Did not develop any signs of alcohol withdrawal during this hospitalization. The plan of care was discussed with the patient and his . They verbalized understanding and agreement. Physical Exam Narrative: EXAM NARRATIVE: The patient is awake alert and oriented. No acute distress. Mood and affect are appropriate. Responses are adequate. Skin is warm and dry. Moist mucous membranes. Eyes PERRL, extraocular muscles are intact Neck supple. No JVD Lungs clear to auscultation bilaterally. Heart S1, S2, irregular Abdomen soft, obese, nontender, bowel sounds are present Extremities no edema cyanosis or calf tenderness bilaterally Neuro evaluation is nonfocal. normal speech. No tremors Discharge Data Data Completed and Pending: Completed Studies During Hospitalization Category Date Time Status CORPORATE LEGAL ASSISTANT request for service Routin e Exams 02/04/21 09:46 Completed XR chest 1V [id number] Routine Exams 02/05/21 06:00 Completed XR chest 1V herb ble [id number] Stat Exams 02/03/21 12:26 Completed XR chest 1V herb ble [id number] Stat Exams 02/04/21 17:52 Completed Vitals: Last Vital Signs Temp 97.8 F 02/05/21 11:00 Pulse 60 02/05/21 12:00 Resp 20 H 02/05/21 12:00 BP 152/69 02/05/21 12:00 Pulse Ox 92 02/05/21 12:00 Discharge Plan Discharge Patient Disposition: Home Condition: Stable Prescriptions: New cephalexin 500 mg Capsule 500 mg PO QID Qty: 19 RF: 0 folic acid 1 mg Tablet 1 mg PO DAILY Qty: 90 RF: 0 Thera 400 mcg Tablet 1 tab PO DAILY Qty: 30 RF: 0 Vitamin B-1 (mononitrate) 100 mg Tablet 100 mg PO DAILY Qty: 90 RF: 0 Continued methylphenidate HCl [Ritalin] 20 mg tablet 20 mg PO BID RF: 0 testosterone [Testim] 50 mg/5 gram (1 %) gel 50 mg transdermal QAM RF: 0 metformin 1,000 mg tablet 1,000 mg PO BID RF: 0 atorvastatin 40 mg tablet See Rx Instructions .ROUTE .COMPLEX RF: 0 olmesartan [Benicar] 40 mg tablet 40 mg PO QAM RF: 0 bupropion HCl 75 mg tablet See Rx Instructions .ROUTE .COMPLEX RF: 0 multivitamin Tablet 1 tab PO DAILY RF: 0 sildenafil [Viagra] 100 mg tablet 100 mg PO PRN RF: 0 glucosamine HCl 1,500 mg tablet 1,500 mg PO PRN RF: 0 vitamin B complex Tablet 1 tab PO DAILY RF: 0 hydrocodone-acetaminophen 5-325 mg tablet 1 tab PO PRN RF: 0 acetaminophen [Tylenol Extra Strength] 500 mg tablet 500 mg PO PRN RF: 0 diphenhydramine HCl [Benadryl] 25 mg capsule 25 mg PO PRN RF: 0 hydralazine 50 mg tablet 50 mg PO TID 30 Days Qty: 90 RF: 5 aspirin 81 mg Tablet,Delayed Release (Dr/Ec) 81 mg PO PRN RF: 0 divalproex 500 mg tablet extended release 24 hr See Rx Instructions .ROUTE .COMPLEX RF: 0 Lotrimin AF (clotrimazole) 1 % Cream 1 applic TOPICAL PRN RF: 0 Closys Mouthwash See Rx Instructions .ROUTE .COMPLEX RF: 0 Discontinued ibuprofen 200 mg capsule 200 - 600 mg PO PRN RF: 0 hydralazine 25 mg Tablet 25 mg PO BID RF: 0 Discharge Orders: Discharge Order (Routine); Ordered 02/05/21 Ordered By: Anil Wiley Referrals: Julita Chiu MD [Physician] - 1 week Discharge Diet: Diabetic Discharge Activity: Limit activity as instructed Activity Restrictions/Additional Instructions: Limit the movements of the right shoulder to 45 degrees. Avoid any weightbearing in the right elbow or lifting anything more than 5 pounds for the next 6 weeks Appointment the heart care services to be seen by the nurse practitioner in 1 week for a wound check and pacemaker check Appointment with me in the office in 1 month May take Keflex 500 mg p.o. every 6 hours for 5 days along with the multivitamin daily Please come back to emergency room if have any chest pain, palpitations, shortness of breath, diaphoresis, dizziness, lightheadedness, weakness, fever or chills, nausea or vomiting, diarrhea or any other new complaints. Discharge Attestations Time Spent in Discharge Care*: greater than 30 min Quality Metrics Clinical Quality Measures During this hospital stay, did patient experience: None Coding Level of Care Code Acute Chg FW DC note Diagnoses Presence of permanent cardiac pacemaker Z95.0 Heart block AV third degree I44.2 Accelerated hypertension I10 Hx of hyperlipidemia Z86.39 NAILA (obstructive sleep apnea) G47.33 Shortness of breath R06.02
[2021-02-05] MEDS: hyDRALAzine 50 mg Tablet PO (13:42)
--- NOTE | 2021-02-05 13:48 | PC.NURSE ---
[address] Chiu. Orders to send pacemaker interrogation to [facility]. [address] Wiley. Discussed discharge plan. Orders to get discharge blood pressure medication orders from Dr. Chiu. 1100 Dr. Chiu at bedside. Reviewed pacemeker interrogation report. Discussed discharge instructions with patient and his . Orders for shoulder sling and blood pressure meds. Follow up in 1 week. Leave dressing on until follow up. [address] Chiu's blood pressure medication orders to Dr. Wiley. 8008 Reported OT recommendation for home PT/OT to Dr. Wiley.
--- NOTE | 2021-02-05 16:17 | PC.NURSE ---
Spoke to child care attendant school, ALEXANDER Molina who stated that [facility] will contact the patient on Sunday. Patient and instructed to call hospital case management department if they do not hear from [place]. Discharge instructions reviewed in detail. Patient and verbalized understanding.
== END 2021-02-05 16:25 | disposition home health service (06) | DRG 243 ==
LOC: ER 13:38 → ICU 14:00
PROVIDERS: Internal Medicine Cardiovascular Disease; Admitting Provider Internal Medicine; Emergency Provider Family Medicine; Visit Provider Internal Medicine
DX: I44.2 Atrioventricular block, complete (principal); Z68.41 Body mass index [BMI] 40.0-44.9, adult; R00.1 Bradycardia, unspecified; I10 Essential (primary) hypertension; R06.02 Shortness of breath; E11.9 Type 2 diabetes mellitus without complications; G47.33 Obstructive sleep apnea (adult) (pediatric); E78.5 Hyperlipidemia, unspecified; E66.9 Obesity, unspecified; Z79.891 Long term (current) use of opiate analgesic; Z79.84 Long term (current) use of oral hypoglycemic drugs; Z79.82 Long term (current) use of aspirin
CPT/HCPCS: 33208; 36415; 51798; 71045; 80048; 80053; 81003; 82550; 83735; 83880; 84443; 84484; 85025; 85610; 85730; 93005; 93306; 96361; 96365; 96367; 96375; 97110; 97116; 97161; 97165; 97535; 99285; C1769; C1779; C1786; C1894; J0360; J0690; J1644; J2250; J2270; J3010; J3490; J7050; Q9967

== ENCOUNTER 2021-11-07 11:55 | Outpatient (CLI) | payer MEDICARE, SELFPAY ==
--- NOTE | 2021-11-07 12:00 | XRR_ITS ---
PROCEDURE INFORMATION: Exam: XR Chest Exam date and time: 11/07/2021 12:00 PM Age: 71 years old Clinical indication: Device placement; Cardiac pacemaker placement or adjustment; Prior surgery; Surgery date: 6+ months; Surgery type: Follow up from pacemaker surg February 2020, checking leads states patient; Additional info: Z95.0 - presence of cardiac pacemaker, to check pacemaker lead TECHNIQUE: Imaging protocol: XR of the chest. Views: 2 views. COMPARISON: CR XR chest 1V [id number] 02/05/2021 4:58 AM FINDINGS: Tubes, catheters and devices: Cardiac device right anterior chest in good position. Lungs: Unremarkable. No consolidation. Pleural spaces: Unremarkable. No pleural effusion. No pneumothorax. Heart/Mediastinum: Unremarkable. No cardiomegaly. Bones/joints: Unremarkable. Other findings: Comparison to prior examination similar findings is seen. XR/XR chest 2V insp/exp [id number] IMPRESSION: 1. No acute findings. 2. Cardiac device right anterior chest
== END 2021-11-07 11:56 | disposition home or self-care (01) ==
PROVIDERS: PCP Electrodiagnostic Medicine; Visit Provider Internal Medicine Cardiovascular Disease
DX: Z95.0 Presence of cardiac pacemaker (principal)
CPT/HCPCS: 71046

== ENCOUNTER → 2022-04-07 11:22 | Outpatient (BNVA) | payer MEDICARE, SELFPAY | PROVIDERS: PCP Electrodiagnostic Medicine; Visit Provider Internal Medicine Cardiovascular Disease | DX: Z45.010 Encounter for checking and testing of cardiac pacemaker pulse generator [battery] (principal) | CPT/HCPCS: 93280 ==

== ENCOUNTER → 2022-05-09 12:11 | Outpatient (BNVA) | payer MEDICARE, SELFPAY | PROVIDERS: PCP Electrodiagnostic Medicine; Visit Provider Internal Medicine Cardiovascular Disease | DX: I44.30 Unspecified atrioventricular block (principal); N18.9 Chronic kidney disease, unspecified; R06.02 Shortness of breath; Z79.01 Long term (current) use of anticoagulants; I10 Essential (primary) hypertension; Z86.39 Personal history of other endocrine, nutritional and metabolic disease; Z95.0 Presence of cardiac pacemaker; R53.1 Weakness; I48.91 Unspecified atrial fibrillation; G47.33 Obstructive sleep apnea (adult) (pediatric); Z86.79 Personal history of other diseases of the circulatory system; E11.65 Type 2 diabetes mellitus with hyperglycemia; Z79.4 Long term (current) use of insulin; I48.0 Paroxysmal atrial fibrillation | CPT/HCPCS: 80053; 84443; 85025; 85610 ==

== ENCOUNTER 2022-07-07 13:35 | Outpatient (CLI) | payer MEDICARE, SELFPAY | END 2022-07-07 13:36 | disposition home or self-care (01) | LOC: LAB 13:37 | PROVIDERS: PCP Electrodiagnostic Medicine; Visit Provider Urology | DX: N40.0 Benign prostatic hyperplasia without lower urinary tract symptoms (principal) | CPT/HCPCS: 84153 ==

== ENCOUNTER → 2022-07-13 13:20 | Outpatient (BNVA) | payer MEDICARE, SELFPAY | PROVIDERS: PCP Electrodiagnostic Medicine; Visit Provider Urology | DX: R39.9 Unspecified symptoms and signs involving the genitourinary system (principal); N40.1 Benign prostatic hyperplasia with lower urinary tract symptoms; Z12.5 Encounter for screening for malignant neoplasm of prostate; Z80.42 Family history of malignant neoplasm of prostate | CPT/HCPCS: 51741; 51798; 81003; 99204 ==

== ENCOUNTER → 2022-09-07 10:07 | Outpatient (BNVA) | payer MEDICARE, SELFPAY | PROVIDERS: PCP Electrodiagnostic Medicine; Visit Provider Urology | DX: N40.1 Benign prostatic hyperplasia with lower urinary tract symptoms (principal) | CPT/HCPCS: 51798; 81003; 99215 ==

== ENCOUNTER → 2022-11-15 14:00 | Outpatient (BNVA) | payer MEDICARE, SELFPAY | PROVIDERS: PCP Electrodiagnostic Medicine; Visit Provider Internal Medicine Cardiovascular Disease | DX: R53.1 Weakness (principal); I48.0 Paroxysmal atrial fibrillation; Z79.01 Long term (current) use of anticoagulants; Z95.0 Presence of cardiac pacemaker; G47.33 Obstructive sleep apnea (adult) (pediatric); E11.65 Type 2 diabetes mellitus with hyperglycemia; Z79.4 Long term (current) use of insulin; E78.5 Hyperlipidemia, unspecified; I10 Essential (primary) hypertension | CPT/HCPCS: 99214 ==

== ENCOUNTER → 2023-01-01 13:59 | Outpatient (BNVA) | payer MEDICARE, SELFPAY | PROVIDERS: PCP Electrodiagnostic Medicine; Visit Provider Podiatrist Foot & Ankle Surgery | DX: E11.65 Type 2 diabetes mellitus with hyperglycemia (principal); Z79.4 Long term (current) use of insulin; G62.9 Polyneuropathy, unspecified; B35.1 Tinea unguium; M21.542 Acquired clubfoot, left foot | CPT/HCPCS: 11721; 73630; 99204 ==

== ENCOUNTER → 2023-01-17 16:28 | Outpatient (BNVA) | payer MEDICARE, SELFPAY | PROVIDERS: PCP Electrodiagnostic Medicine; Visit Provider Internal Medicine Cardiovascular Disease | DX: Z45.010 Encounter for checking and testing of cardiac pacemaker pulse generator [battery] (principal) | CPT/HCPCS: 93296 ==

== ENCOUNTER → 2023-03-05 15:04 | Outpatient (BNVA) | payer MEDICARE, SELFPAY | PROVIDERS: PCP Electrodiagnostic Medicine; Visit Provider Podiatrist Foot & Ankle Surgery | DX: E11.65 Type 2 diabetes mellitus with hyperglycemia (principal); Z79.4 Long term (current) use of insulin; G62.9 Polyneuropathy, unspecified; B35.1 Tinea unguium; M21.542 Acquired clubfoot, left foot | CPT/HCPCS: 11721 ==

== ENCOUNTER → 2023-03-06 13:38 | Outpatient (BNVA) | payer MEDICARE, SELFPAY | PROVIDERS: PCP Electrodiagnostic Medicine; Visit Provider Urology | DX: R06.02 Shortness of breath (principal); Z95.0 Presence of cardiac pacemaker; Z86.79 Personal history of other diseases of the circulatory system; E11.65 Type 2 diabetes mellitus with hyperglycemia; Z79.4 Long term (current) use of insulin; Z86.39 Personal history of other endocrine, nutritional and metabolic disease; G47.33 Obstructive sleep apnea (adult) (pediatric) | CPT/HCPCS: 51798; 81003; 99214 ==

== ENCOUNTER 2023-04-03 08:37 | Outpatient (CLI) | payer MEDICARE, SELFPAY ==
[2023-04-03 08:53] VITALS: BMI 38.3
--- NOTE | 2023-04-03 09:08 | ECG_ITS ---
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 Interpretive Statements NAME OF STUDY: LEXISCAN SESTAMIBI STRESS TEST INDICATION: Shortness of Breath PROCEDURE: At the baseline, the blood pressure was 133/71 mmHg with a heart rate of 62 bpm. The electrocardiogram showed V paced rhythm. The Lexiscan was infused over a period of 20 seconds. A total of 0.4 milligrams of Lexiscan was infused. The stress phase was continued for a total of 5 minutes. Heart rate at the end of the stress phase was 62 beats per min with a blood pressure 114/55 mm Hg. The EKG at the peak infusion revealed V paced rhythm. Sestamibi was injected 20 seconds after the Lexiscan infusion. Blood pressure at the end of the recovery phase was 110/58 mm Hg with a heart rate of 61 beats per minute. CONCLUSION: 1. Non Diagnostic EKG changes with the LexiScan infusion due to baseline paced rhythm. 2. No LexiScan induced chest pain or cardiac arrhythmia. 3. Normal blood pressure and heart rate response. 4. Sestamibi/sestamibi perfusion scan pending; see separate report. Electronically Signed On 04-06-2023 12:50:58 CDT by Ayla Ha M.D. [id number]
--- NOTE | 2023-04-03 09:08 | NMCV_ITS ---
NM zoila perf SPECT r/s* [id number] Gurinder Downing Age: 72 Gender: M : 1950 Exam Date: 04/03/2023 09:48 Ordering Phys: Julita Chiu MD ([email or web address]) Technologist: ALLEN Ya Exam Location: [facility] Indications: CORONARY ANGIOPLASTY STATUS STRESS TEST Please see separate stress test report in [facility] for full findings IMAGE PROTOCOL Rest/Stress 1 Lexiscan Day Radiopharmaceutical Dose (mCi) Administration Site Administered by Rest: Tc-99m 10.6 IV ALLEN Carrillo Sestamibi Stress:Tc-99m 33.0 IV ALLEN Carrillo Sestamibi Rest: 03-Apr-2023 60 Discovery 630 Stress: 03-Apr-2023 30 Discovery 630 0.4mg Lexiscan. Supine position only as patient was unable to lay prone. SPECT RESULTS Technical Quality: Excellent Raw Data Analysis: Normal Image Corrections: No attenuation or motion correction applied Summed Stress Score: 9 Summed Rest Score: 11 Summed Difference Score: 0 PERFUSION FINDINGS There is a large in size, fixed perfusion defect noted in apical inferior, inferior and apical renee. 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 Small sized prior infarct is seen in LAD territory. No significant ischemia seen. FUNCTIONAL RESULTS (calculated via Gated SPECT) Stress Image LV EF (%): 68 Stress EDV (mL):179 TID: 1.12 Stress ESV (mL):58 FUNCTIONAL FINDINGS: There is normal left ventricular systolic function. IMPRESSIONS 1. Abnormal myocardial perfusion imaging with large sized prior infarct seen in RCA territory. Small sized prior infarct seen in LAD territory. 2. LV systolic function is normal. Dashawn Cárdenas MD (Electronically Signed) Final Date: 03 Apr 2023 17:26 S
[2023-04-03] MEDS: regadenoson 0.4 Mg/5 ml Syringe IVP (10:48)
[2023-04-03 11:00] VITALS: BP 110/58; PULSE 61
== END 2023-04-03 08:38 | disposition home or self-care (01) ==
PROVIDERS: PCP Electrodiagnostic Medicine; Visit Provider Internal Medicine Cardiovascular Disease
DX: R06.02 Shortness of breath (principal); R53.83 Other fatigue; Z98.61 Coronary angioplasty status; I25.2 Old myocardial infarction
CPT/HCPCS: 36415; 78452; 93017; 96374; A9500; J2785

== ENCOUNTER → 2023-04-12 15:58 | Outpatient (BNVA) | payer MEDICARE, SELFPAY | PROVIDERS: PCP Electrodiagnostic Medicine; Visit Provider Urology | DX: N13.8 Other obstructive and reflux uropathy (principal); R39.9 Unspecified symptoms and signs involving the genitourinary system; G47.33 Obstructive sleep apnea (adult) (pediatric); R35.89 Other polyuria; N40.1 Benign prostatic hyperplasia with lower urinary tract symptoms | CPT/HCPCS: 51741; 51798; 52000; 99214 ==

== ENCOUNTER → 2023-04-16 13:19 | Outpatient (BNVA) | payer MEDICARE, SELFPAY | PROVIDERS: PCP Electrodiagnostic Medicine; Visit Provider Urology | DX: N40.1 Benign prostatic hyperplasia with lower urinary tract symptoms (principal) | CPT/HCPCS: 88112 ==

== ENCOUNTER → 2023-05-02 07:59 | Outpatient (BNVA) | payer MEDICARE, SELFPAY | PROVIDERS: PCP Electrodiagnostic Medicine; Visit Provider Urology | DX: N40.1 Benign prostatic hyperplasia with lower urinary tract symptoms (principal) | CPT/HCPCS: 81003; 99214 ==

== ENCOUNTER → 2023-05-28 09:48 | Outpatient (BNVA) | payer MEDICARE, SELFPAY | PROVIDERS: PCP Electrodiagnostic Medicine; Visit Provider Internal Medicine Cardiovascular Disease | DX: R07.89 Other chest pain (principal); G47.33 Obstructive sleep apnea (adult) (pediatric); E11.65 Type 2 diabetes mellitus with hyperglycemia; Z79.4 Long term (current) use of insulin; Z95.0 Presence of cardiac pacemaker; E78.5 Hyperlipidemia, unspecified; I10 Essential (primary) hypertension; Z79.01 Long term (current) use of anticoagulants | CPT/HCPCS: 99214 ==

== ENCOUNTER → 2023-07-02 08:35 | Outpatient (BNVA) | payer MEDICARE, SELFPAY | PROVIDERS: PCP Electrodiagnostic Medicine; Visit Provider Podiatrist Foot & Ankle Surgery | DX: E11.42 Type 2 diabetes mellitus with diabetic polyneuropathy (principal); B35.1 Tinea unguium; E11.65 Type 2 diabetes mellitus with hyperglycemia; Z79.4 Long term (current) use of insulin; G62.9 Polyneuropathy, unspecified; M21.542 Acquired clubfoot, left foot; Z79.84 Long term (current) use of oral hypoglycemic drugs | CPT/HCPCS: 11721 ==

== ENCOUNTER → 2023-08-16 15:58 | Outpatient (BNVA) | payer MEDICARE, SELFPAY | PROVIDERS: PCP Electrodiagnostic Medicine; Visit Provider Internal Medicine Cardiovascular Disease | DX: Z45.010 Encounter for checking and testing of cardiac pacemaker pulse generator [battery] (principal) | CPT/HCPCS: 93296 ==

== ENCOUNTER → 2023-09-17 15:58 | Outpatient (BNVA) | payer MEDICARE, SELFPAY | PROVIDERS: PCP Electrodiagnostic Medicine; Visit Provider Internal Medicine Cardiovascular Disease | DX: R07.9 Chest pain, unspecified (principal); Z95.0 Presence of cardiac pacemaker; G47.33 Obstructive sleep apnea (adult) (pediatric); Z86.39 Personal history of other endocrine, nutritional and metabolic disease; Z86.79 Personal history of other diseases of the circulatory system; E11.65 Type 2 diabetes mellitus with hyperglycemia; Z79.4 Long term (current) use of insulin; R94.31 Abnormal electrocardiogram [ECG] [EKG] | CPT/HCPCS: 93005; 99214 ==

== ENCOUNTER 2023-09-25 13:05 | Outpatient (CLI) | payer MEDICARE, SELFPAY ==
--- NOTE | 2023-09-25 13:45 | USCV_ITS ---
Gurinder Downing Age: 73 Gender: M : 1950 Exam Date: 09/25/2023 13:33 Ordering Phys: Julita Chiu MD ([email or web address]) Technologist: CT Exam Location: [facility] [place] Indication: sob BP: 124 / 66 HR: 61 Rhythm: Atrial fibrillation Technical Quality: Adequate MEASUREMENTS (Male / Female) Normal Values 2D ECHO LV Chamber Size 5.1 cm RV Chamber Size 3.7 cm LVOT Diameter 2.1 cm LV Ejection Fraction MOD 2C 40.5 % LV Ejection Fraction 2C AL 39.2 % LA Diameter 4.5 cm LA Width 4.5 cm LA Height 5.3 cm RA Width 3.8 cm RA Height 4.6 cm Aorta at Sinotubular Diameter 2.7 cm IVC Diameter 1.8 cm M-MODE Aortic Annulus Diameter 4.3 cm LA Ao Ratio MM 1.1 MV E Point Septal Separation 1.0 cm DOPPLER AV Peak Velocity 173.0 cm/s LVOT Peak Velocity 121.0 cm/s AV Area Cont Eq vti 2.7 cm squared AV Area Cont Eq pk 2.4 cm squared MV E' Velocity 16.0 cm/s TR Peak Velocity 230.8 cm/s TR Peak Gradient 21.3 mmHg TV Peak E Velocity 106.0 cm/s Right Atrial Pressure 3.0 mmHg Pulmonary Artery Systolic Pressu 24.3 mmHg PV Peak Velocity 140.0 cm/s FINDINGS Left Ventricle Normal left ventricular size and systolic function, EF 55 %. Mild left ventricular hypertrophy. No regional wall motion abnormalities. Right Ventricle Catheter/pacemaker wire in the right ventricular cavity. Right Atrium Catheter/pacemaker wire in the right atrial cavity. Left Atrium Mildly increased left atrial size. Mitral Valve Thickened mitral valve. Mild-moderate mitral valve regurgitation. Aortic Valve Thickened aortic valve. Tricuspid Valve Mild tricuspid valve regurgitation. Pulmonic Valve Pulmonic valve not well visualized. Pericardium Normal pericardium without effusion. Aorta Normal ascending aorta dimension. IVC Normal inferior vena cava. CONCLUSIONS Normal left ventricular size and systolic function, EF 55 %. Mild left ventricular hypertrophy. No regional wall motion abnormalities. Mildly increased left atrial size. Thickened mitral valve. Mild-moderate mitral valve regurgitation. Thickened aortic valve. Mild tricuspid valve regurgitation. Estimated pulmonary artery peak systolic pressure 24 mmHg There is no pericardial effusion. There are no intracardiac masses. Pacemaker wire in the right atrium and right ventricle. Compared to the study from 02/02/2021, there may not be a significant change Dr Julita Chiu MD [facility] (Electronically Signed) Final Date: 28 September 2023 11:46 S
== END 2023-09-25 13:06 | disposition home or self-care (01) ==
LOC: RAD 13:06
PROVIDERS: PCP Electrodiagnostic Medicine; Visit Provider Internal Medicine Cardiovascular Disease
DX: R06.02 Shortness of breath (principal); R94.39 Abnormal result of other cardiovascular function study; I08.3 Combined rheumatic disorders of mitral, aortic and tricuspid valves; Z95.0 Presence of cardiac pacemaker
CPT/HCPCS: 93306

== ENCOUNTER → 2023-11-21 11:16 | Outpatient (BNVA) | payer MEDICARE, SELFPAY | PROVIDERS: PCP Electrodiagnostic Medicine; Visit Provider Internal Medicine Cardiovascular Disease | DX: Z45.010 Encounter for checking and testing of cardiac pacemaker pulse generator [battery] (principal) | CPT/HCPCS: 93296 ==

== ENCOUNTER → 2024-01-15 13:04 | Outpatient (BNVA) | payer MEDICARE, SELFPAY | PROVIDERS: PCP Electrodiagnostic Medicine; Visit Provider Internal Medicine Cardiovascular Disease | DX: R00.1 Bradycardia, unspecified (principal); Z95.0 Presence of cardiac pacemaker; E11.65 Type 2 diabetes mellitus with hyperglycemia; Z79.4 Long term (current) use of insulin; G47.33 Obstructive sleep apnea (adult) (pediatric); E78.5 Hyperlipidemia, unspecified; I10 Essential (primary) hypertension | CPT/HCPCS: 99214 ==

== ENCOUNTER → 2024-07-15 13:39 | Outpatient (BNVA) | payer MEDICARE, SELFPAY | PROVIDERS: PCP Electrodiagnostic Medicine; Visit Provider Internal Medicine Cardiovascular Disease | DX: I48.20 Chronic atrial fibrillation, unspecified (principal); Z86.39 Personal history of other endocrine, nutritional and metabolic disease; Z86.79 Personal history of other diseases of the circulatory system; Z95.0 Presence of cardiac pacemaker | CPT/HCPCS: 99214 ==

== ENCOUNTER 2024-08-26 13:14 | Outpatient (CLI) | payer MEDICARE, SELFPAY | END 2024-08-26 13:15 | disposition home or self-care (01) | LOC: SLEEP 13:17 | PROVIDERS: PCP Electrodiagnostic Medicine; Visit Provider Electrodiagnostic Medicine | DX: G47.33 Obstructive sleep apnea (adult) (pediatric) (principal) | CPT/HCPCS: G0399 ==

== ENCOUNTER → 2025-02-23 16:11 | Outpatient (BNVA) | payer MEDICARE, SELFPAY | PROVIDERS: PCP Electrodiagnostic Medicine; Visit Provider Internal Medicine Cardiovascular Disease | DX: I48.20 Chronic atrial fibrillation, unspecified (principal); Z79.01 Long term (current) use of anticoagulants; E78.5 Hyperlipidemia, unspecified; I10 Essential (primary) hypertension; Z95.0 Presence of cardiac pacemaker; R07.9 Chest pain, unspecified | CPT/HCPCS: 93005; 99214 ==

== ENCOUNTER → 2025-02-25 09:55 | Outpatient (BNVA) | payer MEDICARE, SELFPAY | PROVIDERS: PCP Electrodiagnostic Medicine; Visit Provider Internal Medicine Cardiovascular Disease | DX: Z45.018 Encounter for adjustment and management of other part of cardiac pacemaker (principal) | CPT/HCPCS: 93296 ==

== ENCOUNTER → 2025-07-07 11:09 | Outpatient (BNVA) | payer MEDICARE, SELFPAY | PROVIDERS: PCP Electrodiagnostic Medicine; Visit Provider Internal Medicine Cardiovascular Disease | DX: R07.2 Precordial pain (principal); I48.20 Chronic atrial fibrillation, unspecified; Z95.0 Presence of cardiac pacemaker; I31.9 Disease of pericardium, unspecified; R06.09 Other forms of dyspnea; R06.02 Shortness of breath; I10 Essential (primary) hypertension; Z87.891 Personal history of nicotine dependence | CPT/HCPCS: 36415; 80048; 83880; 84484; 99214 ==

== ENCOUNTER 2025-07-09 05:59 | Outpatient (CLI) | payer MEDICARE, SELFPAY ==
--- NOTE | 2025-07-09 06:15 | USCV_ITS ---
Gurinder Downing Age: 74 Gender: M : 1950 Exam Date: 07/09/2025 06:21 Ordering Phys: Julita Chiu MD ([email or web address]) Technologist: Exam [place] [facility] [place] Indication: sob cp BP: 140 / 75 HR: 62 Rhythm: Sinus Technical Quality: Adequate MEASUREMENTS (Male / Female) Normal Values 2D ECHO LVOT Diameter 2.1 cm LV Ejection Fraction MOD 4C 57.2 % LV Ejection Fraction MOD 2C 81.1 % LV Ejection Fraction 2C AL 80.5 % LA Diameter 4.5 cm RA Systolic Volume 4C AL 45.5 ml RA Systolic Volume 4C MOD 42.8 ml IVC Diameter 1.9 cm M-MODE LA Ao Ratio MM 1.2 AV Cusp Separation MM 3.1 cm DOPPLER AV Peak Velocity 152.7 cm/s LVOT Peak Velocity 110.0 cm/s AV Area Cont Eq vti 2.6 cm squared AV Area Cont Eq pk 2.4 cm squared MV Area PHT 4.6 cm squared Mitral E to A Ratio 1.9 TR Peak Velocity 224.0 cm/s TR Peak Gradient 20.1 mmHg TV Peak E Velocity 131.0 cm/s FINDINGS Left Ventricle Moderate left ventricular hypertrophy. Normal LV size with a somewhat normal ejection fraction of around 80%. Mid cavity obliteration during systole Right Ventricle Normal right ventricular size and systolic function. Right Atrium Catheter/pacemaker wire in the right atrial appendage. Left Atrium The left atrium is normal in size. Mitral Valve Trace mitral valve regurgitation. Aortic Valve No gross abnormalities noted Tricuspid Valve No gross abnormalities noted Pulmonic Valve Pulmonic valve not well visualized. Pericardium Normal pericardium without effusion. Aorta Normal ascending aorta dimension. IVC Normal IVC dimension with <50% respiratory change of the inferior vena cava. CONCLUSIONS Moderate left ventricular hypertrophy. Normal LV size with super normal ejection fraction of around 80%. Mid cavity obliteration during systole. Pacemaker wire in the right atrium and right ventricle There is no pericardial effusion. Compared to the study from 09/25/2023, the left-ventricle appears to be hyper contractile. Dr Julita Chiu MD [facility] (Electronically Signed) Final Date: 10 July 2025 17:49 S
== END 2025-07-09 06:00 | disposition home or self-care (01) ==
LOC: RAD 06:00
PROVIDERS: PCP Electrodiagnostic Medicine; Visit Provider Internal Medicine Cardiovascular Disease
DX: R06.09 Other forms of dyspnea (principal); R07.9 Chest pain, unspecified; I51.7 Cardiomegaly; Z95.0 Presence of cardiac pacemaker
CPT/HCPCS: 93306

== ENCOUNTER 2025-07-20 17:55 | Emergency (ER) | payer MEDICARE, SELFPAY ==
--- OUTSIDE RECORDS SUMMARY | 2016-07-12 06:45 | XMS_ITS | Continuity of Care Document ---
Author Organization [facility] Address [id number] [place] [address] [address] [place] [address] Phone Care Team Providers Care Tax Manager Cpa Name Role Phone Cheri GOLD MD, Alvin Unavailable Unavailable Procedures Procedure Date CATARACT SURG W/IOL, 1 STAGE Advance Directives Directive Yes / No Effective Date File Name No Information Encounters Encounter Description Practice Location Reason(s) For Visit Diagnoses Date Provider Providers Copied on Encounter [facility], [id number] [place] [address] [address], [place], [place], [id number], tel:[phone] [address] [place] [address] [facility] No Information 6 Cheri Esquivel. [address] [facility], [address], [place], [place], [id number] , [place]. tel:[phone] Referring Provider: Alvin Alonzo MD P, [address] [facility] [address], [place], [address] . tel:[phone] Family History Family Member Type Diagnosis Age At Onset No Information Payers Payer name Insurance type Covered constitution party ID Authoriza tion(s) MEDICARE OF [facility] [id number] [facility] [id number] Social History Type Description Quantity Date Captured Comments Sex Male Smoking Status No Information Chief Complaint And Reason For Visit No Information Reason For Referral Reason For Referral No Information History Of Present Illness Encounter Date Complaint History Of Prese nt Illness No Information Functional Status Date Functional Assessmen t No Information Instructions Date Instruction Additional Infor mation No Information Assessments Type Assessment Date No Information Patient Care Teams Name Effective Dates (start - stop) Status Members No Information
--- OUTSIDE RECORDS SUMMARY | 2025-02-17 12:00 | XMS_ITS ---
Author Organization [employer] Address [address] [facility] [place] [address] Care Team Providers Care Parts Counterman Name Role Phone Сергей Villatoro Primary Care Provider Kenny Mancia [phone] REASON FOR VISIT Pt called back and r/s to Dr. Garcia for cysto4 mo w/ ua/pvr/ipss Encounters Encounter Location Date Provider Diagnosis [facility] [address] [facility] [place] [address] 02/17/2025 Kenny Bruce Plan Of Treatment No Information Progress Notes * Gurinder HUSSEINDOB:1950 (74 yo M)Acc No.[id number]:02/17/2025 Progress Notes Patient: Christine HERR Gurinder Peña Provider: Lencho Bruce APRN :1950 A ge:74 Y S ex:Male Date:02/17/2025 Address:[address] [place] [id number] Pcp:Сергей Villatoro Subjective: * Chief Complaints: * 1 . Pt called back and r/s to Dr. Garcia for cysto4 mo w/ ua/pvr/ipss. * Medical History: Objective: * Vitals: Assessment: Plan: * Treatment: * Billing Information: * Visit Code: * Procedure Codes: * Electronic signature of Bacilio Bruce APRN on 07/20/2025 at 06:03 PM CDT Sign off status: Pending * Provider: Lencho Bruce APRN Date: 0 02/17/2025 Generated for Rajan rogers/Aman/Angel on: 0 07/20/2025 06:03 PM CDT
--- OUTSIDE RECORDS SUMMARY | 2025-02-26 05:00 | XMS_ITS | Continuity of Care Document ---
Author Organization [facility] Address [address] [place] [address] Phone Care Team Providers Care Superintendent Landfill Operations Name Role Phone Faustino ALVAREZ Dm Unavailable Unavailable Allergies, Adverse Reactions, Alerts Substance Reaction Status Criticality TAMSULOSIN HCL Active No Informatio n metformin Active No Information chlordiazepoxide Active No Informat ion Medications Medication Instructions Dosage Effective Dates (start - stop) Status Comments alfuzosin ER 10 mg tablet,extended release 24 hr take 1 tablet by oral route every day 10 MG - Active Eliquis 5 mg tablet take 1 tablet by ora l route 2 times every day 5 MG - Active Jardiance 10 mg tablet take 1 tablet by oral route every day in the morning 10 MG - Active Lipitor 20 mg tablet take 1 tablet by or al route every day 20 MG - Active meloxicam 15 mg tablet take 1 tablet by oral route every day 15 MG - Active metoprolol succinate ER 100 mg tablet,extended release 24 hr take 1 tablet by oral route every day 100 MG - Active Ozempic 0.25 mg or 0.5 mg (2 mg/3 mL) subcutaneous pen injector inject (0.5MG) by subcutaneous route every week on the same day of each week 0.5 MG - Active sotalol 80 mg tablet take 1 tablet by or al route 2 times every day 80 MG - Active Procedures Procedure Date OFFICE/OUTPATIENT VISIT EST RADEX HAND MINIMUM 3 VIEWS OFFICE/OUTPATIENT VISIT NEW Advance Directives Directive Yes / No Effective Date File Name No Information Encounters Encounter Description Practice Location Reason(s) For Visit Diagnoses Date Provider Providers Copied on Encounter OFFICE/OUTPAT IENT VISIT EST [facility] , [address], [place], [address], tel:[phone] [facility] [place] Pain in right handForeign body (FB) in soft tissue Feb- 5 Faustino Chaidez. [address], [place], [place], [id number] . tel: [phone] Referring Provider: [address], [place], [address] . tel:[phone] OFFICE/OUTPAT IENT VISIT NEW [facility] , [address], [place], [address], [phone] [facility] [place] Pain in right handForeign body (FB) in soft tissue 5 Faustino Chaidez. [address], [place], [place], [id number] . tel: [phone] Referring Provider: Laurel [address], [place], [address] . tel:[phone] Family History Family Member Type Diagnosis Age At Onset No Information Payers Payer name Insurance type Covered libertarian ID Dereck balderas(s) [facility] Medicare Advantage PPO OT [id number] Social History Type Description Quantity Date Captured Comments Alcohol Use Details 5 drinks weekly Caffeine Use Details Unknown Tobacco Use Status Current non-smoker Smoking Status Never smoker Sex Male Chief Complaint And Reason For Visit No Information Reason For Referral Reason For Referral No Information Plan Of Treatment Date Type Action Status Referral Ordered: RADEX HAND MINIMUM 3 VIEWS RT hand ordered Future Order: Lab Order Anaerobi c and Aerobic Culture ([id number]), Sent on: Sent History Of Present Illness Encounter Date Complaint History Of Prese nt Illness No Information Functional Status Date Functional Assessmen t No Information Instructions Date Instruction Additional Infor mation Fall prevention home exercise program handout provided Assessments Type Assessment Date assessment Pain in right hand assessment Foreign body (FB) in soft tissue Patient Care Teams Name Effective Dates (start - stop) Status Members No Information
--- OUTSIDE RECORDS SUMMARY | 2025-04-13 03:15 | XMS_ITS | Continuity of Care Document ---
Author Organization [employer] Address [address] [place] [address] Phone Care Team Providers Care Oncology Research Rn Name Role Phone Juan Jose White MD Unavailable Unavailable Allergies, Adverse Reactions, Alerts Substance Reaction Status Criticality METFORMIN HCL Diarrhea Active No Information TAMSULOSIN HCL Active No Informatio n chlordiazepoxide Active No Informat ion Medications Medication Instructions Dosage Effective Dates (start - stop) Status Comments OZEMPIC 0.25MG 0.5MG SOLUTION PEN-INJECTOR PEN DOSE INJECT SUBCUTANEOUSLY 0.5MG WEEKLY - Active Meloxicam 15 MG Oral Tablet TAKE 1 TABLET BY MOUTH DAILY - Active metoprolol succinate ER 100 mg tablet,extended release 24 hr take 1 tablet by oral route 1 time every day - Active take in the PM metoprolol succinate ER 50 mg tablet,extended release 24 hr take 1 tablet by oral route every day 50 MG - Active take in the AM Jardiance 10 mg tablet take 1 tablet by oral route every day in the morning 10 MG - Active Per Dr Green Lipitor 20 mg tablet take 1 tablet by oral route every day 20 MG - Active alfuzosin ER 10 mg tablet,extended release 24 hr take 1 tablet by oral route every day 10 MG - Active sotalol 80 mg tablet take 1.5 tablet by oral route 2 times every day - Active Eliquis 5 mg tablet take 1 tablet by oral route 2 times every day 5 MG - Active OZEMPIC 0.25MG 0.5MG SOLUTION PEN-INJECTOR PEN DOSE INJECT 0.25 MG SUBCUTANEOUSLY WEEKLY ON THE SAME DAY OF EACH WEEK FOR 4 WEEKS THEN INCREASE TO 0.5 MG WEEKLY - No Longer Active Procedures Procedure Date MED LIST DOCD IN RCRD IMMUN ADMIN (INC PERCUTANEOUS) EDWIN F IRST INJ TDAP INTRAMUSCULAR USE OFFICE [id number] BODY MASS INDEX DOCD SYST BP LT 130 MM HG DIAST BP < 80 MM HG Pt inelig neg scrn depres OFFICE [id number] BODY MASS INDEX DOCD SYST BP GE 130 - 139MM HG DIAST BP < 80 MM HG Pt inelig neg scrn depres Transitional Care- 14 Days Of Discharge BODY MASS INDEX DOCD SYST BP LT 130 MM HG DIAST BP < 80 MM HG TELEPHONE E&M SERVICE BY A PHYSICIAN;5-1 0 MINUTES OF MEDICAL DISCUSSION DSCHRG MED/CURRENT MED MERGE TELEPHONE E&M SERVICE BY A PHYSICIAN;5-1 0 MINUTES OF MEDICAL DISCUSSION Pt inelig neg scrn depres HEMOGLOBIN A1C- OFFICE LAB FINGER OR HEEL STICK-COLLECTION OF CAPIL ANGELA BLOOD SPECIMEN OFFICE [id number] Visit Complexity Inherent To E/M 2023 BODY MASS INDEX DOCD SYST BP LT 130 MM HG DIAST BP < 80 MM HG Pt inelig neg scrn depres FALL RISK ASSESSMENT DOC'D PRES/ABSN URINE INCON ASSESS HEMOGLOBIN A1C- OFFICE LAB FINGER OR HEEL STICK-COLLECTION OF CAPIL ANGELA BLOOD SPECIMEN MICROALBUMIN, QN (URINE) CREATININE, (U-R) OFFICE [id number] Visit Complexity Inherent To E/M 2023 BODY MASS INDEX DOCD SYST BP LT 130 MM HG DIAST BP < 80 MM HG Pt inelig neg scrn depres FALL RISK ASSESSMENT DOC'D PRES/ABSN URINE INCON ASSESS PPPS, initial visit OFFICE [id number] BODY MASS INDEX DOCD SYST BP LT 130 MM HG DIAST BP < 80 MM HG Pt inelig neg scrn depres HEMOGLOBIN A1C- OFFICE LAB FINGER OR HEEL STICK-COLLECTION OF CAPIL ANGELA BLOOD SPECIMEN OFFICE [id number] BODY MASS INDEX DOCD SYST BP GE 130 - 139MM HG DIAST BP 80-89 MM HG PSA, TOTAL, SCREENING MEDICARE ONLY ROUTINE VENIPUNCTURE BASIC METABOLIC PANEL(BMP) HEPATIC FUNCTION PANEL(LFT, LIVER) Feb-2 LIPID PANEL FALL RISK ASSESSMENT DOC'D PRES/ABSN URINE INCON ASSESS Pt inelig neg scrn depres HEMOGLOBIN A1C- OFFICE LAB FINGER OR HEEL STICK-COLLECTION OF CAPIL ANGELA BLOOD SPECIMEN MICROALBUMIN, QN (URINE) CREATININE, (U-R) OFFICE [id number] BODY MASS INDEX DOCD SYST BP LT 130 MM HG DIAST BP < 80 MM HG EXTREMITY VENOUSE STUDY UNILATER/LIMITED OFFICE CISPN-[id number]-[id number] BODY MASS INDEX DOCD SYST BP LT 130 MM HG DIAST BP < 80 MM HG Pt inelig neg scrn depres FALL RISK ASSESSMENT DOC'D PRES/ABSN URINE INCON ASSESS OFFICE [id number] BODY MASS INDEX DOCD SYST BP LT 130 MM HG DIAST BP < 80 MM HG FALL RISK ASSESSMENT DOC'D PRES/ABSN URINE INCON ASSESS Pt inelig neg scrn depres HEMOGLOBIN A1C- OFFICE LAB FINGER OR HEEL STICK-COLLECTION OF CAPIL ANGELA BLOOD SPECIMEN OFFICE [id number] BODY MASS INDEX DOCD SYST BP LT 130 MM HG DIAST BP 80-89 MM HG Pt inelig neg scrn depres HEMOGLOBIN A1C- OFFICE LAB FINGER OR HEEL STICK-COLLECTION OF CAPIL ANGELA BLOOD SPECIMEN Admin influenza virus vac FLU VACC PRSV FREE INC ANTIG OFFICE [id number]-[id number] BODY MASS INDEX DOCD SYST BP LT 130 MM HG DIAST BP < 80 MM HG Pt inelig neg scrn depres FALL RISK ASSESSMENT DOC'D PRES/ABSN URINE INCON ASSESS HEMOGLOBIN A1C- OFFICE LAB FINGER OR HEEL STICK-COLLECTION OF CAPIL ANGELA BLOOD SPECIMEN OFFICE [id number]-[id number] BODY MASS INDEX DOCD SYST BP LT 130 MM HG DIAST BP < 80 MM HG MICROALBUMIN, QN (URINE) CREATININE, (U-R) DSCHRG MED/CURRENT MED MERGE URINALYSIS, DIPSTICK (UA) - Office Lab F OFFICE [id number] BODY MASS INDEX DOCD SYST BP LT 130 MM HG DIAST BP < 80 MM HG HEMOGLOBIN A1C- OFFICE LAB FINGER OR HEEL STICK-COLLECTION OF CAPIL ANGELA BLOOD SPECIMEN Pt inelig neg scrn depres CBC, INC PLATELETS AND DIFFERENTIAL COMPREHEN METABOLIC PANEL CMP LIPID PANEL PSA, TOTAL, SCREENING MEDICARE ONLY THYROID STIMULATION HORMONE(TSH) 2020 VITAMIN B12 (SERUM) ROUTINE VENIPUNCTURE OFFICE [id number] Admin influenza virus vac FLU VACC PRSV FREE INC ANTIG MICROALBUMIN, QN (URINE) CREATININE, (U-R) HEMOGLOBIN A1C- OFFICE LAB FINGER OR HEEL STICK-COLLECTION OF CAPIL ANGELA BLOOD SPECIMEN OFFICE [id number]-HPM-[id number] BODY MASS INDEX DOCD SYST BP GE 130 - 139MM HG DIAST BP < 80 MM HG Pt inelig neg scrn depres OFFICE [id number]-[id number] BODY MASS INDEX DOCD SYST BP GE 130 - 139MM HG DIAST BP < 80 MM HG BASIC METABOLIC PANEL(BMP) ROUTINE VENIPUNCTURE COMPREHEN METABOLIC PANEL CMP 1 HEMOGLOBIN A1C HGA1C, GLYCO ROUTINE VENIPUNCTURE COMPREHEN METABOLIC PANEL CMP 1 LIPID PANEL PSA, TOTAL ROUTINE VENIPUNCTURE OFFICE [id number] Kept Appointment No Charge Encounter Sep OFFICE [id number] Chest Xray, 2 Views Pt inelig neg scrn depres BASIC METABOLIC PANEL(BMP) CBC, INC PLATELETS AND DIFFERENTIAL ROUTINE VENIPUNCTURE OFFICE IACYN-CFI-[id number] BODY MASS INDEX DOCD SYST BP GE 130 - 139MM HG DIAST BP 80-89 MM HG Admin influenza virus vac FLU VACC PRSV FREE INC ANTIG Chest Xray, 2 Views Kept Appointment No Charge Encounter May OFFICE [id number] Pt inelig neg scrn depres FALL RISK ASSESSMENT DOC'D PRES/ABSN URINE INCON ASSESS OFFICE [id number] BODY MASS INDEX DOCD SYST BP LT 130 MM HG DIAST BP < 80 MM HG Pt inelig neg scrn depres DESTRUCTION PREMALIGNANT LESION (INCL AC TINIC KERATOSES) FIRST LESION DESTRUCTION PREMALIGANT LESION 2-14 (INC L ACTINIC KERATOSES) OFFICE [id number]-UGF-PRQVJRSH BODY MASS INDEX DOCD SYST BP GE 130 - 139MM HG DIAST BP < 80 MM HG BASIC METABOLIC PANEL(BMP) ROUTINE VENIPUNCTURE BASIC METABOLIC PANEL(BMP) ROUTINE VENIPUNCTURE GLUCOSE, BLOOD SUGAR HEMOGLOBIN A1C HGA1C, GLYCO ROUTINE VENIPUNCTURE EXTREMITY VENOUSE STUDY UNILATER/LIMITED COMPREHEN METABOLIC PANEL CMP 9 LIPID PANEL PSA, TOTAL ROUTINE VENIPUNCTURE OFFICE KUCMI-SFO-HIDEAMLU BODY MASS INDEX DOCD SYST BP GE 130 - 139MM HG DIAST BP < 80 MM HG OFFICE CYDVS-RFU-WHAZXANS BODY MASS INDEX DOCD SYST BP LT 130 MM HG DIAST BP < 80 MM HG Admin influenza virus vac FLU VAC NO PRSV 4 JEANNA, 0.5mL DOSAGE OFFICE LTOJK-RPS-SOWDXUUC BODY MASS INDEX DOCD SYST BP GE 130 - 139MM HG DIAST BP < 80 MM HG Advance Directives Directive Yes / No Effective Date File Name No Information Encounters Encounter Description Practice Location Reason(s) For Visit Diagnoses Date Provider Providers Copied on Encounter [facility] [employer], [address], [place], [place], [address] , tel: [phone] [facility] No Information 5 Christopher Ingram. [address], [facility] [address], [place], [address], [place]. tel:[phone] OFFICE KHIEP-JDJ-OJG ANDED [facility] [employer], [address], [place], [place], [address] , [place] tel: [phone] [facility] acute problem (chief complaint) Body mass index [BMI] 37.0-37.9, adultForeign body of right hand, initial encounter 5 Kaitlynn Hogan. [address], [facility] [address], [place], [place], [address], [place]. tel:[phone] Referring Provider: Juan Jose White, [address], [place], [address] . tel:[phone] OFFICE OBLVE-ZVC-CTL FERMÍN [facility], [address], [place], [place], [address] , tel: [phone] [facility] Chronic Conditions (chief complaint) Body mass index [BMI] 38.0-38.9, adultAcute non-recurrent sinusitis, unspecified locationSolitar y pulmonary noduleUnspecifi ed atrial fibrillationHyp ertensive chronic kidney disease with stage 1 through stage 4 chronic kidney disease, or unspecified chronic kidney diseaseType 2 diabetes mellitus with diabetic chronic kidney diseaseMorbid (severe) obesity due to excess caloriesChronic kidney disease, stage 3 unspecifiedBeni gn prostatic hyperplasia with lower urinary tract symptomsHemopty sis Jan-11 13- 5 Cecilia Smith. [address], [address], [place], [place], [address], [place]. tel:[phone] Referring Provider: Sarah Cecliia, [address], [place], [address] . tel:[phone] [facility], [address], [place], [place], [address] , tel: [phone] [facility] Need for MMR vaccine 0- 5 Christopher Juan Jose. [address], [address], [place], [place], [address], [place]. tel:[phone] [facility], [address], [place], [place], [address] , [place] tel: [phone] [facility] Need for MMR vaccine Jan-0 - 5 Christopher Juan Jose. [address], [address], [place], [place], [address], [place]. tel:[phone] [facility], [address], [place], [place], [address] , [place] tel: [phone] [facility] No Information 5 Christopher Juan Jose. [address], [address], [place], [place], [address], [place]. tel:[phone] [facility], [address], [place], [place], [address] , [place] tel: [phone] [facility] No Information 4 Christopher Juan Jose. [address], [address], [place], [place], [address], [place]. tel:[phone] [facility], [address], [place], [place], [address] , tel: [phone] [facility] No Information 4 Christopher Ingram. [address] [place] [address], [id number], . tel:[phone] Transitional Care- 14 Days Of Discharge [facility], [address], [place], [place], [address] , tel: [phone] [facility] Chronic Conditions (chief complaint)T CM/HFU (chief complaint) Unspecified atrial fibrillationVen tricular tachycardia, unspecified 4 Christopher Ingram. [address] [place] [address], [id number], . tel:[phone] Referring Provider: Juan Jose White, [address] [place] [address], [address] . tel:[phone] TELEPHONE E&M SERVICE BY A PHYSICIAN;5-1 0 MINUTES OF MEDICAL DISCUSSION [facility], [address] [place] [address], [id number] , tel: [phone] [facility] Paroxysmal atrial fibrillation 4 Evangelista Lombardo. [address] [place] [address], [id number], . tel:[phone] Referring Provider: Juan Jose White, [address] [place] [address], [address] . tel:[phone] [facility], [address] [place] [address], [id number] , tel: [phone] [facility] Low blood potassium 4 Christopher Ingram. [address] [place] [address], [id number], . tel:[phone] [facility], [address], [place], [place], [address] , tel: [phone] [facility] No Information 4 Christopher Ingram. [facility] [address] , [address], [id number], . tel:[phone] Referring Provider: Juan Jose White LenchoAlden [address], [address] . tel:[phone] TELEPHONE E&M SERVICE BY A PHYSICIAN;5-1 0 MINUTES OF MEDICAL DISCUSSION [facility], [address], [place], [place], [address] , tel:[phone] Care Management Contusion of scalp, initial encounter 4 Evangelista Lombardo. [address] [place] [address], [address], [id number], . tel:[phone] Referring Provider: Juan Jose White, [address]Alden [address], [address] . tel:[phone] OFFICE FPDDT-SNV-NZZ FERMÍN [facility], [address] [facility], [place], [place], [address] , tel: [phone] [facility] Chronic Conditions (chief complaint)C hronic f/u (chief complaint)c hronic conditions (chief complaint) Type 2 diabetes mellitus with diabetic chronic kidney diseaseHyperten sive chronic kidney disease with stage 1 through stage 4 chronic kidney disease, or unspecified chronic kidney diseaseChronic kidney disease, stage 3 unspecifiedCard iomyopathy, unspecifiedPure hypercholestero lemia, unspecifiedUnsp ecified atrial fibrillationPro state cancer screening [address] Christopher Ingram[address], [address], [id number], [place]. tel:[phone] Referring Provider: Juan Jose White LenchoAlden [address], [address] . tel:[phone] [facility], [address], [place], [place], [address] , tel:[phone] [facility] No Information 4 Christopher Ingram. [facility] [address] , [address], [id number], [place]. tel:[phone] OFFICE SKNCH-SJX-IPL [facility], [address], [place], [place], [address] , tel: [phone] [facility] Chronic Conditions (chief complaint)C hronic f/u (chief complaint)c hronic conditions (chief complaint) Type 2 diabetes mellitus with stage 3 chronic kidney disease, without long-term current use of insulin, unspecified whether stage 3a or 3b CKDChronic kidney disease, stage 3 unspecifiedBody mass index [BMI] 40.0-44.9, adultAtheroscle rosis of aortaSolitary lung noduleCardiomyo kellen, unspecifiedUnsp ecified atrial fibrillationHyp ertensive chronic kidney disease with stage 1 through stage 4 chronic kidney disease, or unspecified chronic kidney diseasePure hypercholestero lemia, unspecifiedMorb id (severe) obesity due to excess caloriesLower extremity edema 4 Christopher Ingram[address], [address], [place], [place], [address], . tel:[phone] Referring Provider: Juan Jose White, [address], [place], [address] . tel:[phone] OFFICE GDOAP-XYV-WKD [facility], [address], [place], [place], [address] , tel: [phone] [facility] right foot pain (chief complaint)M edicare preventive (chief complaint)C hronic Conditions (chief complaint)c hronic conditions (chief complaint) Body mass index [BMI] 40.0-44.9, adultHypertensi ve chronic kidney disease with stage 1 through stage 4 chronic kidney disease, or unspecified chronic kidney diseasePure hypercholestero lemia, unspecifiedChro arpan kidney disease, stage 3 unspecifiedType 2 diabetes mellitus with diabetic chronic kidney diseaseSolitary pulmonary noduleCardiomyo kellen, unspecifiedAthe rosclerosis of aortaUnspecifie d atrial fibrillationMor bid (severe) obesity due to excess caloriesVentric ular tachycardia, unspecifiedBeni gn prostatic hyperplasia with lower urinary tract symptomsInsomni a, unspecifiedUnsp ecified osteoarthritis, unspecified siteEdema of right lower extremityMedica re annual wellness visit, initialMild cognitive impairment of uncertain or unknown etiology 4 Evangelista Lombardo. [address] [place] [address], [address], [id number], [place]. tel:[phone] Referring Provider: Juan Jose White, [facility] [address], [address] . tel:[phone] [facility], [address], [place], [place], [address] , [place] tel: [phone] [facility] No Information 3 Dwayne Jorge. [address] [place] [address], [address], [id number], [place]. tel:[phone] [facility], [address] [facility], [place], [place], [address] , tel: [phone] [facility] No Information 3 Carlo Smith. [facility], [address], [id number], [place]. tel:[phone] OFFICE VSTTS-XTP-IAI FERMÍN [facility], [address] [facility], [place], [place], [address] , tel: [phone] [facility] Chronic Conditions (chief complaint)C hronic f/u (chief complaint)c hronic conditions (chief complaint) Type 2 diabetes mellitus with diabetic chronic kidney diseaseChronic kidney disease, stage 3 unspecifiedHype rtensive chronic kidney disease with stage 1 through stage 4 chronic kidney disease, or unspecified chronic kidney diseasePure hypercholestero lemia, unspecified Sep-2 3 Christopher Ingram. [facility] [address] , [address], [id number], [place]. tel:[phone] Referring Provider: Juan Jose White, [facility] [address], [address] . tel:[phone] [facility], [address] [facility], [place], [place], [address] , [place] tel:[phone] [facility] No Information 3 Christopher Ingram. [address], [address], [place], [place], [address], [place]. tel:[phone] [facility], [address], [place], [place], [address] , tel: [phone] [facility] Type 2 diabetes mellitus with stage 3 chronic kidney disease, without long-term current use of insulin, unspecified whether stage 3a or 3b CKDChronic kidney disease, stage 3 unspecifiedScre ening for cardiovascular condition 3 Christopher Ingram. [address], [address], [place], [place], [address], [place]. tel:[phone] [facility], [address], [place], [place], [address] , [place] tel:[phone] [facility] Type 2 diabetes mellitus with diabetic chronic kidney diseaseChronic kidney disease, stage 3 unspecifiedPros rodriguez cancer screeningScreen ing for cardiovascular condition 3 Christopher Ingram. [address], [address], [place], [place], [address], [place]. tel:[phone] Referring Provider: Juan Jose White, [address], [place], [address] . tel:[phone] OFFICE VCTCI-CXE-DPM FERMÍN [facility], [address], [place], [place], [address] , tel:[phone] [facility] Chronic Conditions (chief complaint)C hronic f/u (chief complaint) Type 2 diabetes mellitus with diabetic chronic kidney diseaseChronic kidney disease, stage 3 unspecifiedSoli tary lung noduleAtheroscl erosis of aortaMorbid (severe) obesity due to excess caloriesUnspeci fied atrial fibrillationCar diomyopathy, unspecifiedMorb id (severe) obesity due to excess caloriesBody mass index [BMI] 40.0-44.9, adult Feb- 3 Christopher Ingram. [address], [address], [place], [place], [address], [place]. tel:[phone] Referring Provider: Juan Jose White, [address], [place], [address] . tel:[phone] [facility], [address], [place], [place], [address] , tel: [phone] [facility] No Information 2 Iman Beard. [address] , [place], [place], [address], [place]. tel:[phone] Referring Provider: Virginia Lo, [address], [place], [address] . tel:[phone] OFFICE QGZYN-QLH-PZC [facility], [address], [place], [place], [address] , [place] tel: [phone] [facility] acute problem (chief complaint) Morbid (severe) obesity due to excess caloriesBody mass index [BMI] 40.0-44.9, adultLeft leg swelling 2 Teresita Coleman. [address], [address], [place], [place], [address], [place]. tel:[phone] Referring Provider: Juan Jose White, [address], [place], [address] . tel:[phone] OFFICE QTDCR-KKT-NLU [facility], [address], [place], [place], [address] , [place] tel: [phone] [facility] acute problem (chief complaint) Body mass index [BMI] 40.0-44.9, adultNasal drainage 2 Teresita Coleman. [address], [address], [place], [place], [address], [place]. tel:[phone] Referring Provider: Juan Jose White, [address], [place], [address] . tel:[phone] OFFICE NMQMG-KMD-CPW FERMÍN [facility], [address], [place], [place], [address] , tel: [phone] [facility] Chronic Conditions (chief complaint)a cute problem (chief complaint)c hronic conditions (chief complaint) Morbid (severe) obesity due to excess caloriesBody mass index [BMI] 40.0-44.9, adultType 2 diabetes mellitus w diabetic chronic kidneyChronic kidney disease, stage 3 unspecifiedLeft hamstring injury, initial encounterProsta te cancer screening 2 Nezpercega BassDianna. [address], [address], [place], [place], [address], [place]. tel:[phone] Referring Provider: Juan Jose White, [address], [place], [address] . tel:[phone] [facility], [address], [place], [place], [address] , tel: [phone] [facility] No Information 2 Christopher Ingram. [address], [address], [place], [place], [address], [place]. tel:[phone] OFFICE ZNOPD-QTV-IDT [facility], [address], [place], [place], [address] , tel: [phone] [facility] Chronic Conditions (chief complaint) Type 2 diabetes mellitus w diabetic chronic kidney diseaseChronic kidney disease, stage 3 unspecifiedUnsp ecified atrial fibrillation 2 Nezpercega BassDianna. [address], [address], [place], [place], [address], [place]. tel:[phone] Referring Provider: Juan Jose White, [address], [place], [address] . tel:[phone] [facility], [address], [place], [place], [address] , tel: [phone] [facility] No Information 2 Christopher Ingram. [address], [address], [place], [place], [address], [place]. tel:[phone] OFFICE CVIZP-WUN-WXO [facility], [address], [place], [place], [address] , tel: [phone] [facility] Chronic Conditions (chief complaint)C hronic f/u (chief complaint) Type 2 diabetes mellitus w diabetic chronic kidney diseaseChronic kidney disease, stage 3 unspecifiedUnsp ecified atrial fibrillationSol itary lung noduleCardiomyo kellen, unspecifiedVent ricular tachycardiaAthe rosclerosis of aortaBenign prostatic hyperplasia with lower urinary tract symptomsMorbid (severe) obesity due to excess caloriesBody mass index [BMI] 40.0-44.9, adultBack pain, unspecified back location, unspecified back pain laterality, unspecified chronicity 2 Christopher Ingram. [address], [address], [place], [place], [address], [place]. tel:[phone] Referring Provider: Juan Jose White, [address] [facility] [address], [address] . tel:[phone] [facility], [address], [place], [place], [address] , tel: [phone] [facility] No Information 2 Christopher Ingram. [address], [address], [place], [place], [address], [place]. tel:[phone] Referring Provider: Juan Jose White, [address], [place], [address] . tel:[phone] [facility], [address], [place], [place], [address] , tel: [phone] [facility] No Information 2 Christopher Ingram. [address], [address], [place], [place], [address], [place]. tel:[phone] OFFICE PQNSL-OBZ-SDU ANDED [facility], [address], [place], [place], [address] , tel: [phone] [facility] acute problem (chief complaint) Acute UTI 2 Ross Bustamante. [address], [place], [place], [address], [place]. tel:[phone] Referring Provider: Juan Jose White, [address], [place], [address] . tel:[phone] OFFICE HMWMY-UUV-PXH FERMÍN [facility], [address], [place], [place], [address] , tel: [phone] [facility] Chronic Conditions (chief complaint)C hronic f/u (chief complaint) Type 2 diabetes mellitus w diabetic chronic kidney diseaseScreenin g for cardiovascular conditionScreen ing PSA (prostate specific antigen)Cardiom yopathy, unspecifiedUnsp ecified atrial fibrillationChr onic kidney disease, stage 3 unspecifiedSoli tary lung noduleFatigue, unspecified typeIncreasing shortness of breath Oct-0 1 Christopher Ingram. [address], [address], [place], [place], [address], [place]. tel:[phone] Referring Provider: Juan Jose White, [address], [place], [address] . tel:[phone] [facility], [address], [place], [place], [address] , [place] tel: [phone] [facility] No Information Jul- 1 Christopher Ingram. [address], [address], [place], [place], [address], [place]. tel:[phone] Referring Provider: Juan Jose White, [address], [place], [address] . tel:[phone] [facility], [address], [place], [place], [address] , [place] tel: [phone] [facility] Chronic combined systolic (congestive) and diastolic (congestive) heart failureCardiomy opathy, unspecified Jhonatan- 1 Christopher Ingram. [address], [address], [place], [place], [address], [place]. tel:[phone] OFFICE GLDHP-RHR-VUS FERMÍN [facility], [address], [place], [place], [address] , [place] tel: [phone] [facility] Chronic Conditions (chief complaint)C hronic f/u (chief complaint) Type 2 diabetes mellitus w diabetic chronic kidney diseaseChronic kidney disease, stage 3 unspecifiedSoli tary lung noduleVentricul ar tachycardiaChro arpan combined systolic (congestive) and diastolic (congestive) heart failureAtherosc lerosis of aortaUnspecifie d atrial fibrillation 1 Christopher Ingram. [address], [address], [place], [place], [address], [place]. tel:[phone] Referring Provider: Juan Jose White, [address], [place], [address] . tel:[phone] OFFICE ETXWV-ZOT-YIJ ANDED [facility], [address], [place], [place], [address] , [place] tel: [phone] [facility] acute problem (chief complaint) Body mass index (BMI) 40.0-44.9, adultMorbid (severe) obesity due to excess caloriesSwellin g of right foot 1 Teresita Coleman. [address], [address], [place], [place], [address], [place]. tel:[phone] Referring Provider: Juan Jose White, [address], [place], [address] . tel:[phone] [facility], [address], [place], [place], [address] , [place] tel: [phone] [facility] Hyperkalemia 1 Christopher nIgram. [address], [address], [place], [place], [address], [place]. tel:[phone] Referring Provider: [address], [place], [address] . tel:[phone] [facility], [address], [place], [place], [address] , tel: [phone] [facility] Serum potassium elevated 1 Christopher Juan Jose. [address], [address], [place], [place], [address], [place]. [phone] [facility], [address], [place], [place], [address] , tel: [phone] [facility] Chronic Conditions (chief complaint) Impaired fasting glucoseType 2 diabetes mellitus w diabetic chronic kidney disease 1 Christopher Ingram. [address], [address], [place], [place], [address], [place]. [phone] Referring Provider: [address] [facility] [address], [place], [address] . tel:[phone] [facility], [address], [place], [place], [address] , tel: [phone] [facility] Elevated fasting blood sugar 1 Christopher Ingram. [address], [address], [place], [place], [address], [place]. [phone] [facility], [address], [place], [place], [address] , tel: [phone] [facility] Chronic Conditions (chief complaint) Benign prostatic hyperplasia with lower urinary tract sympChronic kidney disease, stage 3 unspecified 1 Christopher Ingram. [address], [address], [place], [place], [address], [place]. tel:[phone] Referring Provider: [address] [facility] [address], [place], [address] . tel:[phone] OFFICE QGOME-RMQ-PBH FERMÍN [facility], [address], [place], [place], [address] , tel: [phone] [facility] Telehealth Visit (chief complaint)C hronic Conditions (chief complaint) Solitary lung noduleUnspecifi ed atrial fibrillationChr onic combined systolic (congestive) and diastolic (congestive) heart failureAtherosc lerosis of aortaVentricula r tachycardia 1 Christopher Ingram. [address], [address], [place], [place], [address], [place]. tel:[phone] Referring Provider: Juan Jose White, [address], [place], [address] . tel:[phone] [facility], [address], [place], [place], [address] , tel: [phone] [facility] No Information 0 Ross Bustamante. [address], [address], [place], [place], [address], [place]. tel:[phone] Referring Provider: Juan Jose White, [address], [place], [address] . tel:[phone] OFFICE IYYAJ-OFD-YCY ANDED [facility], [address], [place], [place], [address] , tel: [phone] [facility] acute problem (chief complaint) Nonintractable headache, unspecified chronicity paExposure to COVID-19 virus 0 Ross Bustamante. [address], [address], [place], [place], [address], [place]. tel:[phone] Referring Provider: Juan Jose White, [address], [place], [address] . tel:[phone] [facility], [address], [place], [place], [address] , [place] tel: [phone] [facility] Chronic Conditions (chief complaint) Solitary lung nodule 0 Christopher Ingram. [address], [address], [place], [place], [address], [place]. tel:[phone] [facility], [address], [place], [place], [address] , tel: [phone] [facility] Lung nodule 0-202 0 Christopher Ingram. [address], [address], [place], [place], [address], [place]. tel:[phone] [facility], [address], [place], [place], [address] , [place] tel: [phone] [facility] Lung nodule 0 Christopher Ingram. [address], [address], [place], [place], [address], [place]. tel:[phone] [facility], [address], [place], [place], [address] , [place] tel: [phone] [facility] Abnormal chest xray 0 Steve Kenrick. [address], [place], [place], [address], [place]. tel:[phone] Referring Provider: Juan Jose White, [address], [place], [address] . tel:[phone] OFFICE LQUQG-VPL-EVQ FERMÍN [facility], [address], [place], [place], [address] , [place] tel: [phone] [facility] acute problem (chief complaint) Body mass index (BMI) 40.0-44.9, adultMorbid (severe) obesity due to excess caloriesDyspnea on exertionLocaliz ed edema 0 Ross Bustamante. [address], [address], [place], [place], [address], [place]. tel:[phone] Referring Provider: Juan Jose White, [address], [place], [address] . tel:[phone] [facility], [address], [place], [place], [address] , [place] tel:[phone] [facility] No Information Jul- 0 Christopher Ingram. [address], [address], [place], [place], [address], [place]. tel:[phone] Referring Provider: [address], [place], [address] . tel:[phone] [facility], [address], [place], [place], [address] , tel: [phone] [facility] Close exposure to COVID-19 virus 0 Christopher Ingram. [address], [address], [place], [place], [address], [place]. tel:[phone] [facility], [address], [place], [place], [address] , tel: [phone] [facility] Dyspnea, unspecified 0 Christopher Ingram. [address], [address], [place], [place], [address], [place]. tel:[phone] Referring Provider: Juan Jose White, [address], [place], [address] . tel:[phone] [facility], [address], [place], [place], [address] , tel: [phone] [facility] No Information 0 Christopher Ingram. [address], [address], [place], [place], [address], [place]. tel:[phone] Referring Provider: Juan Jose White, [address], [place], [address] . tel:[phone] OFFICE ZEUVP-OLQ-UFC ANDED [facility], [address], [place], [place], [address] , tel: [phone] [facility] Chronic Conditions (chief complaint) DizzinessNausea Dyspnea, unspecified typeAtheroscler osis of aorta 0 Christopher Ingram. [address], [address], [place], [place], [address], [place]. tel:[phone] Referring Provider: Juan Jose White, [address], [place], [address] . tel:[phone] OFFICE TWBOH-RCF-OEY FERMÍN [facility], [address], [place], [place], [address] , tel: [phone] [facility] Chronic Conditions (chief complaint)C hronic f/u (chief complaint) Body mass index (BMI) 40.0-44.9, adultMorbid (severe) obesity due to excess caloriesVentric ular tachycardiaChro arpan combined systolic (congestive) and diastolic (congestive) heart failureBenign prostatic hyperplasia with lower urinary tract symptomsUnspeci fied atrial fibrillation 0 Christopher Ingram. [address], [address], [place], [place], [address], [place]. tel:[phone] Referring Provider: Juan Jose White, [address], [place], [address] . tel:[phone] OFFICE WJBOR-JGP-LML ANDED [facility], [address], [place], [place], [address] , tel: [phone] [facility] acute problem (chief complaint) Body mass index (BMI) 40.0-44.9, adultMorbid (severe) obesity due to excess caloriesCyst of skinActinic keratosis 0 Ross Bustamante. [address], [address], [place], [place], [address], [place]. tel:[phone] Referring Provider: Juan Jose White, [address], [place], [address] . tel:[phone] [facility], [address], [place], [place], [address] , [place] tel: [phone] [facility] Essential (primary) hypertension 0 Christopher Ingram. [address], [address], [place], [place], [address], [place]. tel:[phone] Referring Provider: Juan Jose White, [address], [place], [address] . tel:[phone] [facility], [address], [place], [place], [address] , [place] tel: [phone] [facility] Essential (primary) hypertension 0 Christopher Juan Jose. [address], [place], [place], [address], [place]. tel:[phone] [facility], [address], [place], [place], [address] , [place] tel: [phone] [facility] Ventricular tachycardia 0 Christopher Juan Jose. [address], [place], [place], [address], [place]. tel:[phone] Referring Provider: Juan Jose White, [address], [place], [address] . tel:[phone] [facility], [address], [place], [place], [address] , [place] tel: [phone] [facility] Ventricular tachycardia 0 Christopher Juan Jose. [address], [place], [place], [address], [place]. tel:[phone] [facility], [address], [place], [place], [address] , [place] tel: [phone] [facility] Impaired fasting glucose 0 Christopher Juan Jose. [address], [place], [place], [address], [place]. tel:[phone] Referring Provider: Juan Jose White, [address], [place], [address] . tel:[phone] [facility], [address], [place], [place], [address] , [place] tel: [phone] [facility] Impaired fasting glucose 0 Christopher Juan Jose. [address], [place], [place], [address], [place]. tel:[phone] [facility], [address], [place], [place], [address] , tel:[phone] [facility] No Information 0 Dusvickie Choudhary. [address], [place], [place], [address], [place]. tel:[phone] Referring Provider: [address] [facility] [address], [place], [address] . tel:[phone] [facility], [address], [place], [place], [address] , tel: [phone] [facility] Benign prostatic hyperplasia with lower urinary tract symp 9 Christopher Ingram. [address], [place], [place], [address], [place]. tel:[phone] Referring Provider: [address] [facility] [address], [address] . tel:[phone] OFFICE TZWVN-VEN-EDK FERMÍN, [address], [place], [place], [address] , tel: [phone] [facility] Chronic Conditions (chief complaint)C hronic f/u (chief complaint) Body mass index (BMI) 40.0-44.9, adultMorbid (severe) obesity due to excess caloriesChronic combined systolic (congestive) and diastolic (congestive) heart failureUnspecif ied osteoarthritis, unspecified siteBenign prostatic hyperplasia with lower urinary tract symptomsVentric ular tachycardia 9 Christopher Ingram. [address], [place], [place], [address], [place]. tel:[phone] Referring Provider: [address] [facility] [address], [address] . tel:[phone] OFFICE HRHJF-XRN-YSM AND, [address], [place], [place], [address] , tel: [phone] [facility] Bee Sting (chief complaint) Body mass index (BMI) 39.0-39.9, adultAllergic reaction, initial encounter 9 Christopher Ingram. [address], [place], [place], [address], [place]. tel:[phone] Referring Provider: Juan Jose White, [address], [place], [address] . tel:[phone] [facility], [address], [place], [place], [address] , [place] tel: [phone] [facility] No Information 9 Christopher Ingram. [address], [place], [place], [address], [place]. tel:[phone] Referring Provider: Juan Jose White, [address], [place], [address] . tel:[phone] OFFICE FLMRY-YGM-PEW FERMÍN [facility], [address], [place], [place], [address] , [place] tel: [phone] [facility] Chronic Conditions (chief complaint)C hronic f/u (chief complaint) Body mass index (BMI) 39.0-39.9, adultChronic combined systolic (congestive) and diastolic (congestive) heart failureVentricu lar tachycardiaBeni gn prostatic hyperplasia with lower urinary tract symptomsUnspeci fied osteoarthritis, unspecified site 9 Christopher Ingram. [address], [place], [place], [address], [place]. tel:[phone] Referring Provider: Juan Jose White, [address], [place], [address] . tel:[phone] [facility], [address], [place], [place], [address] , [place] tel: [phone] [facility] Body mass index (BMI) 39.0-39.9, adultActinic keratosisInflam ed seborrheic keratosis 9 Ross Bustamante. [address], [address], [place], [place], [address], [place]. tel:[phone] Referring Provider: Juan Jose White, [address], [place], [address] . tel:[phone] [facility], [address], [place], [place], [address] , tel: [phone] [facility] Body mass index (BMI) 37.0-37.9, adultVentricula r tachycardiaChro arpan combined systolic (congestive) and diastolic (congestive) heart failureNeuropat hy 8 Christopher Juan Jose. [address], [place], [place], [address], [place]. tel:[phone] Referring Provider: [address], [place], [address] . tel:[phone] [facility], [address], [place], [place], [address] , tel: [phone] [facility] Ventricular tachycardiaChro arpan combined systolic (congestive) and diastolic (congestive) heart failure 8 Christopher Ingram. [address], [place], [place], [address], [place]. tel:[phone] [facility], [address], [place], [place], [address] , tel: [phone] [facility] No Information 8 Christopher Ingram. [address], [place], [place], [address], [place]. tel:[phone] Referring Provider: [address], [place], [address] . tel:[phone] [facility], [address], [place], [place], [address] , tel:[phone] [facility] Ventricular tachycardiaChro arpan combined systolic (congestive) and diastolic (congestive) heart failureBody mass index (BMI) 38.0-38.9, adultInsomnia, unspecified 8 Christopher Juan Jose. [address], [place], [place], [address], [place]. tel:[phone] Referring Provider: Juan Jose White, [address], [place], [address] . tel:[phone] [facility], [address], [place], [place], [address] , [place] tel: [phone] [facility] No Information 8 Christopher Ingram. [address], [address], [place], [place], [address], [place]. tel:[phone] Family History Family Member Type Diagnosis Age At Onset Father Problem (finding) Mother Problem (finding) hypertension Immunizations Vaccine Date Status Comments Tdap administered Source: New Imm unization Record RI SSV-FLUZONE HD 65+ PF INJ 23-24 administered Source: Other Provid er COMIRNATY 12+ (COVID) -24 PFS administe red Source: Other Provider RSV ABRYSVO INJ 1 VIAL administered Sourc e: Other Provider COVID19 PFIZER UPDATED BOOST ER 12+ administered Source: Other Provid er Fluzone High-Dose, high dose , preservative free administered Source: New Immuniza tion Record Fluzone High-Dose, high dose , preservative free administered Source: New Immuniza tion Record Fluzone High-Dose, high dose , preservative free administered Source: New Immuniza tion Record Fluzone-Flulaval Quad, preservative free, split virus, 0.5mL dosage administered Source: New Immuniza tion Record Fluzone-Flulaval Quad, preservative free, split virus, 0.5mL dosage administered Source: New Immuniza tion Record pneumococcal polysaccharide vaccine, 23 valent administered Source: Other Regist ry Fluzone High-Dose , high dose, preservative free administered Source: Ot er Registry Pneumococcal conjugate PCV 13 administere d Source: Other Registry Tdap administered Source: Other R egistry Zoster administered Source: Other R egistry Payers Payer name Insurance type Covered republican ID Dereck balderas(s) [facility] [employer] PPO [place] [id number] [facility] [employer] PPO MB [id number] MEDICARE MB [id number] BCBS ACCESS CHOICE BL [id number] MEDICARE MB [id number] BCBS ACCESS CHOICE BL [id number] MEDICARE MB [id number] BCBS ACCESS CHOICE BL [id number] MEDICARE MB [id number] BCBS ACCESS CHOICE BL [id number] MEDICARE MB [id number] BCBS ACCESS CHOICE BL [id number] Social History Type Description Quantity Date Captured Comments Sex Male Smoking Status No Information Sexual Orientation Straight or heterosexual Gender Identity Male Chief Complaint And Reason For Visit No Information Reason For Referral Reason For Referral No Information Plan Of Treatment Date Type Action Status Goal Dietary manageme nt education, guidance, and counseling completed Goal Tobacco cessation counseling completed Goal Dietary manageme nt education, guidance, and counseling completed Goal Dietary manageme nt education, guidance, and counseling completed Goal Tobacco cessation counseling completed Goal Dietary manageme nt education, guidance, and counseling completed Goal Dietary manageme nt education, guidance, and counseling completed Goal Dietary manageme nt education, guidance, and counseling completed Goal Dietary manageme nt education, guidance, and counseling completed Goal Dietary manageme nt education, guidance, and counseling completed Goal Dietary manageme nt education, guidance, and counseling completed Goal Dietary manageme nt education, guidance, and counseling completed Goal Dietary manageme nt education, guidance, and counseling completed Goal Dietary manageme nt education, guidance, and counseling completed Goal Dietary manageme nt education, guidance, and counseling completed Referral Referred To: [address] [place] [address], [id number] Ordered: CT Chest WO contrast ordered Referral Ordered: EXTREMITY VENOUSE STUDY UNILATER/LIMITED Left ordered Referral Referred To: Physical Therapy Ordered: Referrals: Physical Therapy. Evaluate and treat - Level 2 ordered Referral Ordered: CT chest without contrast ordered Referral Ordered: Pet imaging ct attenuation skull base mid-thigh ordered Referral Ordered: PET scan tumor skull base to mid-thigh ordered Referral Ordered: PET scan whole body for malignancy ordered Referral Ordered: CT chest w contrast ordered Referral Ordered: Chest Xray, 2 Views ordered Referral Ordered: Doppler ultrasound of right lower extremity for venous thromboembolism Right ordered Future Order: Lab Order Microalb umin/Creatinine Ratio ([id number]), Collected on: , Sent on: Sent Future Order: Lab Order PSA ([id number]), S ent on: Sent Future Order: Lab Order Comprehe nsive Metabolic (CMP) ([id number]), Sent on: Sent Future Order: Lab Order Lipid Pa weston W/Reflex To Direct LDL ([id number]), Sent on: Sent Future Order: Lab Order UA- Dips tick (office Lab) ([id number]), Collected on: Ordered History Of Present Illness Encounter Date Complaint History Of Prese nt Illness acute problem Chief complaint: hand pain. He presents to office with complaints of splinter in right hand that he happened on Sunday while running his hand over a picnic table. He endorses swelling and redness that is going up wrist which started yesterday. He is on Eliquis and is diabetic. He was able to remove a small piece of wood but, unsure if he got all of it. He is due for his tetanus. Chronic Conditions *See Chronic Conditions HPI Chronic Conditions *See Chronic Conditions HPI TCM/HFU Admit date: Discharge date: 06/12/24Admitting hospital: [facility] post discharge: within 2 business days after dischargeMedications reconciled at post discharge phone call: [facility] hospital records, notes, and testing reviewed in detail: yesInterval history reviewed since discharge: yesHospital course: Pt admitted to [facility] secondary to an ICD shock. Shocks were inappropriate for afib/flutter with RVR on device interrogation. Pt was seen by EP. EP increased his metoprolol for better rate control. Pt had low potassium prior to discharge but repeat labs were with a normal potassium level. All hospital records reviewed in detail. EP planning on catheter ablation for rhythm control to prevent inappropriate shocks. No further episodes or issues since discharge. chronic conditions *See Chronic Conditions HPI Chronic Conditions Chronic f/u Pt here to f/u o n their multiple chronic medical conditions. Chronic conditions reviewed in detail. Chronic conditions updated in HPI where applicable. Chronic f/u Pt here to f/u o n their multiple chronic medical conditions. Chronic conditions reviewed in detail. Chronic conditions updated in HPI where applicable.C/o chronic RLE edema. LLE less swelling. Previous u/s negative for DVT. Pt on anticoagulation. Less swellign when he wakes up in am. Swelling can increase during the day. chronic conditions *See Chronic Conditions HPI Chronic Conditions right foot pain Right leg pain a nd right foot swelling for past month. Pt was using compression stockings which seemed to help, but they are too difficult to get on. Slight numbness and tingling in BLE. Elevation helps. Tries to watch sodium intake. Denies any increased sob. Pt took torsemide the past two days which seemed to help, but did not take it today bc he has bowling tonight. Chronic Conditions *See Chronic Conditions HPI Medicare preventive The patient has not felt depressed and has had interest and pleasure doing things recently. SLUMS assessment completed, with a total score of 23, Mild Neurocognitive Disorder. Cognitive Status: Mild cognitive impairment (Cognitive status has not changed) and method used is slums on 12/12/2023. The patient has not fallen in the last year. The fall(s) did not result in injury. Patient exercises 3-4 times/week. Patient denies recent weight gain. Relevant history is positive for tobacco use and alcohol use. Screening services were reviewed, no changes made. chronic conditions *See Chronic Conditions HPI chronic conditions *See Chronic Conditions HPI Chronic Conditions Chronic f/u Pt here to f/u o n their multiple chronic medical conditions. Chronic conditions reviewed in detail. Chronic conditions updated in HPI where applicable. Chronic f/u Pt here to f/u o n their multiple chronic medical conditions. Chronic conditions reviewed in detail. Chronic conditions updated in HPI where applicable. Chronic Conditions acute problem Chief complaint: Left lower leg. Patient presents with left calf swelling and redness for 5-7 days. He denies new injury to the leg. He does reports compliance with Eliquis, does not take aspirin with this. Patient has been more sedentary past 2 weeks playing [employer] which he reports that role finished yesterday. He did start PT just prior to this onset for hamstring injury and reports that is improving. Finished Augmentin around 5 days ago. acute problem Chief complaint: Sinus congestion/cough. Patient presents with onset 12/2 of nasal drainage, told staff here no symptoms but was present at visit and thought he could make it go away with OTC cough/cold medication. He continued to be Rhina over the weekend without use of a mask or isolation. He took a home COVID test today that was negative. He is current on COVID and flu vaccines. Smoker but has not smoked past 2 days. He feels this is mostly in his sinuses and drainage is causing the cough. Declines COVID PCR testing or known fevers at home. Chronic Conditions *See Chronic Conditions HPI acute problem Pt c/o left hams tring injury one week ago. He fell forward while getting his turkey out on . Significant bruising. He is able to walk but slowly. This is a busy work season for him and feels he has been over doing it. Pain only minimally improved. He would like to do some PT. Requesting Percocet prn for pain. chronic conditions *See Chronic Conditions HPI Chronic Conditions *See Chronic Conditions HPI Chronic Conditions Chronic f/u Pt here to f/u o n their multiple chronic medical conditions. Chronic conditions reviewed in detail. Chronic conditions updated in HPI where applicable.c/o back pain x 3 days. No radiation. No numbness, tingling, weakness. Happens about once a year. Already on Mobic. acute problem Pt c/o dysuria, urinary frequency, and abnormal urine odor x 7-10 days. He denies fever, abdominal pain, back pain, N/V, or bowel changes. Sx consistent with UTI he has had in the past. Chronic Conditions Chronic f/u Pt here to f/u o n their multiple chronic medical conditions. Chronic conditions reviewed in detail. Chronic conditions updated in HPI where applicable. Chronic Conditions Chronic f/u Pt here to f/u o n their multiple chronic medical conditions. Chronic conditions reviewed in detail. Chronic conditions updated in HPI where applicable. acute problem Chief complaint: right foot swelling. Patient presents with 3 days of right foot swelling and discomfort only when he pushes on a particular area. He reports he isn't concerned but here due to request of his . He notes when he wakes in the morning the swelling is a lot better. In past he was told to wear compression stockings but can't get them on and thus does not wear. He also thought in August when he had bilateral lower leg swelling that he was to use Lasix for only 1 week and thus is not taking. He denies new trauma to the right ankle or foot, does have hardware remaining in ankle and screw pushing on the skin but doesn't think that has changed. Chronic Conditions *See Chronic Conditions HPI Chronic Conditions *See Chronic Conditions HPI Telehealth Visit TELEHEALTH VISI T: I spoke to the patient via [facility] Telehealth program. Chronic Conditions *See Chronic Conditions HPI acute problem Telehealth visit .[facility] the [facility].Pt c/o nasal congestion, myalgias, and mild GRIMES that began yesterday. Last weekend he was hunting with 4 friends and 3 of them have tested positive for Covid-19 this week. He was last with the friends 6 days ago. He denies fever, CP, or worsening SOB. Chronic Conditions *See Chronic Conditions HPI acute problem Pt c/o b/l LE ed marina and SOB with exertion x 2-3 months. Sx worsening over the past month and yesterday noticed a fluid filled blister to anterior aspect of distal left cordoba. No associated pain or redness. He does not have compression socks. Swelling improves over night and worsens as the day progresses. He feels SOB easily with exertion such as walking up stairs. Sx resolve with rest. He denies CP. Telehealth Visit TELEHEALTH VISI T: I spoke to the patient via [facility].Last week or so c/o nausea an dizziness. +GRIMES at times. No syncope. Some dyspnea. No cough or wheezing . Some chest tightness at times. Called cardio who told to call our office. No fevers. He has been outside alot lately. Poor water intake. +caffeine use. On alpha ric for BPH. No recent coivd exposure. He has been around his high school aged grand kids. Chronic Conditions *See Chronic Conditions HPI Chronic Conditions Chronic f/u Pt here to f/u o n their multiple chronic medical conditions. Chronic conditions reviewed in detail. Chronic conditions updated in HPI where applicable. acute problem Pt c/o irritated bump to posterior neck x 1 week. He initially squeezed the area and had purulent drainage. It is no longer draining but remains sore. He also c/o 3 dry lesions to b/l temples that scab over, flake off, then return. Chronic Conditions Chronic f/u Pt here to f/u o n their multiple chronic medical conditions. Chronic conditions reviewed in detail. Chronic conditions updated in HPI where applicable. Bee Sting c/o swelling in left hand after possible yellow jacket sting this am. Painful ROM of fingers. No erythema. No fevers. No wheezing, dyspnea, throat swelling, lip swelling. No OTC meds. He has used some ice. Chronic Conditions Chronic f/u Pt here to f/u o n their multiple chronic medical conditions. Chronic conditions reviewed in detail. Chronic conditions updated in HPI where applicable. Functional Status Date Functional Assessmen t No Information Instructions Date Instruction Additional Infor mation appointment made pilar Harmon ([facility]) [facility] location- 0800 tomorrow -start Bactrim DS 1 tab BID for 5 days -tetanus updated. -hold Eliquis dose tonight and tomorrow morning. Related to Foreign body of right hand, initial encounter Encouraged healthy d iet and daily cardiovascular exercise. - We recommend diets low in saturated and trans fats, low in sugar, high in fruits and vegetables, and complex carbohydrates/fiber. - We recommend trying to get at least 30-45 min of cardiovascular activity 3-5 days a week. This can include walking, running, biking, hiking, swimming, or any activity you enjoy that can get your heart rate up. Related to Body mass index [BMI] 37.0-37.9, adult Dietary management e ducation, guidance, and counseling Related to Body mass index (BMI) 37.0-37.9, adult Mild episodes of blo od tinged sputum production x2-3 weeks. 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 Related to Hypertensive chronic kidney disease with stage 1 through stage 4 chronic kidney disease, or unspecified chronic kidney disease I recommend for keven ent to contact head coach regarding eliquis management. Related to Unspecified atrial fibrillation MA: NEEDS CT CHEST W ITHOUT CONTRAST DX PULM NODULE. NEEDS AUGMENTIN 875/125 MG BID X7 DAYS.Current antibiotics. Discussed with patient how sinus infection can contribute to blood-tinged sputum. I recommend for patient to hold Eliquis and contact his head coach. Related to Acute non-recurrent sinusitis, unspecified location Dietary management e ducation, guidance, and counseling Related to Body mass index (BMI) 38.0-38.9, adult f/u as scheduled Related to Unsp ecified atrial fibrillation f/u 4 months Related to Type 2 diabetes mellitus with diabetic chronic kidney disease f/u 4 months Related to Type 2 diabetes mellitus with stage 3 chronic kidney disease, without long-term current use of insulin, unspecified whether stage 3a or 3b CKD Continue to monitor for any cognitive decline. Related to Mild cognitive impairment of uncertain or unknown etiology Overall, you are doi ng well. Continue current treatment plans. Discussed preventative care management. Encouraged healthy diet and exercise. Aim to exercise 30 minutes daily. Stay hydrated by trying to drink 6-8 8oz glasses of water daily. Call if any new questions or concerns arise. Related to Medicare annual wellness visit, initial Limit sodium intake. Be sure to stay active and elevate your feet when at rest. Try new diabetic socks since the compression stockings are difficult for you to get on. You could also try tubigrips for compression. Take torsemide as needed, but your symptoms seem to be improving so working on sodium, compression, and elevation should be your initial treatments. Continue to monitor your condition and call with persistent, worsening, or new symptoms. Related to Edema of right lower extremity Continue meloxicam as needed. Re lated to Unspecified osteoarthritis, unspecified site Practice good sleep hygiene. Limit screen time prior to bed. Try to decrease stress through obtaining adequate sleep, daily exercise, and healthy dietary choices. Related to Insomnia, unspecified Stable. Continue to follow up with urology as scheduled. Related to Benign prostatic hyperplasia with lower urinary tract symptoms Stable. Continue to follow up with cardiology as scheduled. Related to Ventricular tachycardia, unspecified Continue to follow u p with cardiology as scheduled. Related to Unspecified atrial fibrillation Continue to work on healthier dietary choices and routine exercise. Related to Morbid (severe) obesity due to excess calories Continue to follow u p with cardiology as scheduled. Related to Cardiomyopathy, unspecified Risk reduction. Cont inue to monitor and treat cardiovascular risk factors. Related to Atherosclerosis of aorta Keep upcoming diabet ic follow up appointment. Continue to monitor A1c. Related to Type 2 diabetes mellitus with diabetic chronic kidney disease Stable per 01/2023 CT. Related to Solitary pulmonary nodule Chronic kidney disea se (CKD) is when the kidneys stop working as well as they should. This is monitored through your blood work. You can protect your kidneys by: Taking blood pressure and other medicines every day, if they are prescribed to you. Keeping your blood sugar in a healthy range, if you have diabetes. Changing your diet, by eating healthy. Quitting smoking, if you smoke. Losing weight, if you are overweight. Avoiding medicines known as nonsteroidal antiinflammatory drugs, or NSAIDs. These medicines include ibuprofen (Advil, Motrin) and naproxen (Aleve). Related to Chronic kidney disease, stage 3 unspecified Continue daily atorv astatin. Continue to work on improving diet and engaging in routine physical activity. Related to Pure hypercholesterolemia, unspecified Stable. Continue current medicat ions. Related to Hypertensive chronic kidney disease with stage 1 through stage 4 chronic kidney disease, or unspecified chronic kidney disease f/u 4 months Related to Type 2 diabetes mellitus with diabetic chronic kidney disease f/u 4 months Related to Type 2 diabetes mellitus with diabetic chronic kidney disease Dietary management e ducation, guidance, and counseling Related to Body mass index (BMI) 40.0-44.9, adult As above. Related to Morbi d (severe) obesity due to excess calories Low risk DVT with El iquis, but will setup ultrasound tomorrow to assess at 10am at [facility]. If negative consider antibiotics for early cellulitic process. Elevate leg for now. Related to Left leg swelling Dietary management e ducation, guidance, and counseling Related to Body mass index (BMI) 40.0-44.9, adult Fluids, nasal saline spray, humidification, consider daily Claritin or Zyrtec for drying, caution on cough/cold medication to not elevate your blood sugars or blood pressure and encourage checking your blood sugar daily whenever you are ill to monitor. Your rapid flu test is negative today, if not improving start and complete antibiotic course. Encourage isolating from community until symptoms resolved, if need to enter community use of mask highly recommended to keep you from further illness and spread to others. Related to Nasal drainage F/u 4 months. Related to Type 2 diabetes mellitus w diabetic chronic kidney Dietary management e ducation, guidance, and counseling Related to Body mass index (BMI) 40.0-44.9, adult F/u 3 months as scheduled. Relat ed to Type 2 diabetes mellitus w diabetic chronic kidney disease f/u with PA in 3 mon thsf/u with Dr. White in 6 months Related to Type 2 diabetes mellitus w diabetic chronic kidney disease Dietary management e ducation, guidance, and counseling Related to Body mass index (BMI) 40.0-44.9, adult f/u 4-6 months Related to Type 2 diabetes mellitus w diabetic chronic kidney disease f/u 4-6 months Related to Type 2 diabetes mellitus w diabetic chronic kidney disease If you change your m ind on testing please reach back to our team. For now elevate, support, and when ready to return to Ortho to have hardware removed notify our team as well. Related to Swelling of right foot Dietary management e ducation, guidance, and counseling Related to Body mass index (BMI) 40.0-44.9, adult f/u 6 monthsLabs - C MP, FLP, PSA Telehealth visit. I provided this telemedicine visit with audio and video. The patient/parent/guardian gave informed consent for the use of telemedicine for this visit. Related to Chronic combined systolic (congestive) and diastolic (congestive) heart failure Telehealth visit. I provided this telemedicine visit with audio and video. The patient gave informed consent for the use of telemedicine for this visit. Related to Nonintractable headache, unspecified chronicity pa Dietary management e ducation, guidance, and counseling Related to Body mass index (BMI) 40.0-44.9, adult Await testing Telehe alth visit. I provided this telemedicine visit with audio and video. The patient/parent/guardian gave informed consent for the use of telemedicine for this visit. Related to Dizziness f/u 6 months Related to Chron ic combined systolic (congestive) and diastolic (congestive) heart failure Dietary management e ducation, guidance, and counseling Related to Body mass index (BMI) 40.0-44.9, adult Dietary management e ducation, guidance, and counseling Related to Body mass index (BMI) 40.0-44.9, adult Medication management f/u 6 months NV for fasting labs Related to Chronic combined systolic (congestive) and diastolic (congestive) heart failure Dietary management e ducation, guidance, and counseling Related to Body mass index (BMI) 40.0-44.9, adult f/u as scheduled Related to Zia rgic reaction, initial encounter Dietary management e ducation, guidance, and counseling Related to Body mass index (BMI) 39.0-39.9, adult f/u 6 months Related to Chron ic combined systolic (congestive) and diastolic (congestive) heart failure Dietary management e ducation, guidance, and counseling Related to Body mass index (BMI) 39.0-39.9, adult Assessments Type Assessment Date No Information Patient Care Teams Name Effective Dates (start - stop) Status Members No Information
--- OUTSIDE RECORDS SUMMARY | 2025-04-27 12:00 | XMS_ITS ---
Author Organization [facility] Address [address] [place] [address] Care Team Providers Care Retail Special Event Associate Name Role Phone Сергей Villatoro Primary Care Provider Kenny Mancia Unavailable [phone] RO RIVERA Unavailable [phone] REASON FOR VISIT 2 mo w/ fr/pvr/ipss Encounters Encounter Location Date Provider Diagnosis [facility] [address] [place] [address] 04/27/2025 RO RIVERA Plan Of Treatment No Information Progress Notes * Gurinder HUSSEINDOB:1950 (74 yo M)Acc No.[id number]:04/27/2025 Progress Notes Patient: Christine HERR Gurinder Peña Provider: Joann RIVERA MD :1950 A ge:74 Y S ex:Male Date:04/27/2025 Address: [id number] Pcp:Сергей Villatoro Subjective: * Chief Complaints: * 1 . 2 mo w/ fr/pvr/ipss. * Medical History: Objective: * Vitals: Assessment: Plan: * Treatment: * Billing Information: * Visit Code: * Procedure Codes: * Electronic signature of AUST IN MD MIGUEL on 07/20/2025 at 06:03 PM CDT Sign off status: Pending * Provider: Joann RIVERA MD Date: 0 04/27/2025 Generated for Printi ng/Faben/eTransmitting on: 0 07/20/2025 06:03 PM CDT
--- OUTSIDE RECORDS SUMMARY | 2025-07-09 09:30 | XMS_ITS ---
Author Organization [facility] Address [address] [place] [address] Care Team Providers Care District Director Name Role Phone Сергей Villatoro DO Primary Care Provider Unavail Martha Anderson Unavailable REASON FOR VISIT 4w f/u w ua and pvr Encounters Encounter Location Date Provider Diagnosis [facility] [address] [place] [address] [address] [place] [address] 07/09/2025 Martha Velazquez Plan Of Treatment No Information Progress Notes * CHANG GurinderDOB:1950 ( 74 yo M)Acc No.[id number]:07/09/2025 Progress Notes Patient: Gurinder Monk Provider: VERONICA Weber :1950 A ge:74 Y S ex:Male Date:07/09/2025 Address: [id number] Pcp:Сергей Villatoro DO Subjective: * Chief Complaints: * 4 w f/u w ua and pvr * Electronic signature of VERONICA Esquivel on 07/20/2025 at 06:03 PM CDT Sign off status: Pending * Provider: VERONICA Weber Date: 07/09/2025 Generated for Rajan rogers/Aman/eTransmitting on: 07/20/2025 06:03 PM CDT
--- OUTSIDE RECORDS SUMMARY | 2025-07-20 18:03 | XMS_ITS | Patient Health Record ---
Author Organization [employer] Address [address] [place] [address] Care Team Providers Care Grain Shipper Name Role Phone Сергей Villatoro Primary Care Provider Kenny Mancia Unavailable [phone] RO RIVERA Unavailable [phone] Allergies Allergen (clinical drug ingredient) Drug/Non Drug Allergy documented on EMR Reaction Allergy Type Onset Date Status fulvestrant Fulvestrant Unknown Drug Allergy Act livia Results Component Value Reference Range Notes Urinalysis, Routine Reviewed date:08/18/2024 03:18:38 PM Interpretation: Performing Lab: Notes/Report: Urine-Color yellow Appearance clear Glucose - Bilirubin - Ketones - Specific [place] 1.015 Occult Blood - pH 6.0 Urine Protein - Urobilinogen,Semi-Qn - Nitrite, Urine - WBC Esterase - Urinalysis Gross Exam - Urinalysis, Routine Reviewed date:02/16/2025 03:58:06 PM Interpretation: Performing Lab: Notes/Report: Urine-Color yellow Appearance clear Glucose - Bilirubin - Ketones trace Specific [place] 1.015 Occult Blood - pH 6.5 Urine Protein - Urobilinogen,Semi-Qn - Nitrite, Urine - WBC Esterase - Urinalysis Gross Exam - Reason For Referral No Information Medications Medication SIG (Take, Route, Frequency, Duration) Notes Start Date End Date Status amLODIPine Besylate 2.5 MG 1 tablet Orally Once a day Active Tamsulosin HCl 0.4 MG 1 capsule Orally O nce a day Not-Taking hydrALAZINE HCl 100 MG 1 tablet with ahmet d Orally Twice a day Active Vitamin D3 Active buPROPion HCl 75 MG 2 tablets Orally Twice a day Active HYDROcodone-Acetaminophen 5-325 MG 1 tablet as needed Orally every 6 hrs Active Benicar 40 MG 1 tablet Orally Once a day Active Gabapentin 300 MG 1 capsule Orally Onc e a day Active Eliquis 5 MG as directed Orally Active Ibuprofen 200 MG 1 capsule with food or milk as needed Orally Three times a day Active Lipitor 40 MG 1 tablet Orally Once a day Active Tylenol 325 MG 1 capsule as needed Orally every 6 hrs Active Depakote 500 MG 1 tablet Orally Twic e a day Active Vitamin B Complex - as directed Orally Active Glucosamine 500 MG 1 capsule with meals Orally Three times a day Active Multivitamin - 1 tablet Orally Once a day Active AndroGel Active Methylphenidate HCl 20 MG 1 tablet on an empty stomach Orally Twice a day Active Alfuzosin HCl ER 10 MG 1 tablet immediat pramod after the same meal Orally Once a day; Duration: 90 days 02/17/2025 02/12/2026 Active Folic Acid 1 MG 1 tablet Orally Once a day Active metFORMIN HCl 1000 MG 1 tablet with a me al Orally Once a day Active Social History Tobacco Use: Social History Observation Description Date Details (start date - stop date) Never Smoker NA - NA Tobacco Control (Standard) Question Answer Notes Tobacco use: Nonsmoker Problems Problem Type SNOMED Code ICD Code Onset Dates Problem Status W/U Status Risk Notes Problem Nocturia (129923944) Nocturia (R35.1) Active confirmed Problem Lower urinary tract symptoms due to benign prostatic hypertrophy (77604088586288) Benign prostatic hyperplasia with lower urinary tract symptoms (N40.1) Active confirmed Problem Urgent desire to urinate (49942509) Urinary urgency (R39.15) Active confirmed Problem Benign prostatic hypertrophy with outflow obstruction (893694468) BPH loc w urin obs/LUTS (N40.1) Active confirmed Vital Signs Heart Rate 86 /min 08/18/2024 Temperature 98.2 degrees Fahrenheit 08/18/2024 Blood pressure diastolic 84 mm Hg 08/18/2024 Height-cm 180.34 cm 02/16/2025 Weight-kg 124.74 kg 02/16/2025 Height 71 in 02/16/2025 Blood pressure systolic 155 mm Hg 08/18/2024 Weight 275 lbs 02/16/2025 BMI 38.35 kg/m2 02/16/2025 Procedures Procedure Date Ordered Date Performed Result Body Sit e Bladder Scan 08/18/2024 08/18/2024 N/A UroFlow 10/21/2024 N/A Bladder Scan 10/21/2024 10/21/2024 N/A Encounters Encounter Location Date Provider Diagnosis [facility], [facility] [address] [place] [address] 08/18/2024 RO RIVERA BPH loc w urin obs/LUTS N40.1 and Nocturia R35.1 [facility], [facility] [address] [place] [address] 10/21/2024 Kenny Bruce BPH loc w urin obs/LUTS N40.1 ; Urinary urgency R39.15 ; Nocturia R35.1 and Urinary frequency R35.0 [facility], [facility] [address] [facility] [address] [place] [address] 02/16/2025 RO RIVERA BPH loc w urin obs/LUTS N40.1 ; Urinary urgency R39.15 ; Nocturia R35.1 and Urinary frequency R35.0 [facility], [facility] [address] [place] [address] 02/17/2025 Kenny Bruce [facility], [facility] [address] [place] [address] 03/27/2025 Kenny Bruce Assessments Encounter Date Diagnosis (ICD Code) Assessment Notes Treatment Notes Treatment Clinical Notes Section Notes 08/18/2024 Nocturia (ICD-10 - R35.1) 74 y/o M with BPH with LUTS and severe nocturia. IPSS 26. QoL terrible. UA clear. PSA 2.6. PVR 16cc. I discussed side effect profile with Androgel and recommend holding it at this time due to severe LUTS. He will return in 2 months and reassess with noninvasive urodynamics and see Janis Musa APRN. Return sooner with any concerns. Plan: -Hold AndroGel -RTC in 2 months with FR/PVR/IPSS to see Janis Musa APRN. Portia Kidd, Scribe, am scribing for, and in the presence of, Dr. Rivera. I, Dr. Ro Rivera, personally performed the services prescribed in this documentation, as scribed by Portia Hartmann, in my presence, and it is both accurate and complete. 08/18/2024 BPH loc w urin obs/LUTS (ICD-10 - N40.1) 74 y/o M with BPH with LUTS and severe nocturia. IPSS 26. QoL terrible. UA clear. PSA 2.6. PVR 16cc. I discussed side effect profile with Androgel and recommend holding it at this time due to severe LUTS. He will return in 2 months and reassess with noninvasive urodynamics and see Janis Musa APRN. Return sooner with any concerns. Plan: -Hold AndroGel -RTC in 2 months with FR/PVR/IPSS to see Janis Musa APRN. I, Portia Hartmann, Scribe, am scribing for, and in the presence of, Dr. Rivera. I, Dr. Ro Rivera, personally performed the services prescribed in this documentation, as scribed by Portia Hartmann, in my presence, and it is both accurate and complete. 10/21/2024 Urinary urgency (ICD-10 - R39.15) 74 y/o M with BPH with LUTS and severe nocturia. IPSS continues to remain terrible. Previous PSA 2.6. PVR 69cc. Involving the Androgel and recommend continuing to hold, however, he would like to get back on at this time due concerns of his bone health and no improved LUTS. He continues to have bothersome LUTS. I suggested scheduling for in office cystoscopy for our further evaluation although he had negative scope previously a year ago with Dr. Jeffery. I also suggested trialing other medications such as Gemtesa or myrbetriq. He would like to see over a few months on if his symptoms improve with newly adjusted settings with CPAP prior to any further intervention. He will return in 4 months and reassess with UA/PVR. He may call sooner to move forward with further medication versus cystoscopy. For now, and through shared decision making we are in agreement with no further workup or intervention at this time with care plan, aside from what was mentioned. Patient has no other voiced concerns or questions. Patient satisfied with plan. 10/21/2024 BPH loc w urin obs/LUTS (ICD-10 - N40.1) 74 y/o M with BPH with LUTS and severe nocturia. IPSS continues to remain terrible. Previous PSA 2.6. PVR 69cc. Involving the Androgel and recommend continuing to hold, however, he would like to get back on at this time due concerns of his bone health and no improved LUTS. He continues to have bothersome LUTS. I suggested scheduling for in office cystoscopy for our further evaluation although he had negative scope previously a year ago with Dr. Jeffery. I also suggested trialing other medications such as Gemtesa or myrbetriq. He would like to see over a few months on if his symptoms improve with newly adjusted settings with CPAP prior to any further intervention. He will return in 4 months and reassess with UA/PVR. He may call sooner to move forward with further medication versus cystoscopy. For now, and through shared decision making we are in agreement with no further workup or intervention at this time with care plan, aside from what was mentioned. Patient has no other voiced concerns or questions. Patient satisfied with plan. 02/16/2025 Urinary urgency (ICD-10 - R39.15) 74 y/o M with BPH with LUTS and severe nocturia. Previous PSA 2.6. Cysto shows a 4cm trilobar obstructing prostate. I recommend stopping Androgel as this can cause prostate to grow more rapidly and worsen BPH symptoms. I recommend trying Alfuzosin 10mg daily to see if that improves his LUTS. Plan: -Rx Alfuzosin 10mg daily -RTC in 2 months with IPSS, FR, PVR -stop Androgel -all questions answered 02/16/2025 BPH loc w urin obs/LUTS (ICD-10 - N40.1) 74 y/o M with BPH with LUTS and severe nocturia. Previous PSA 2.6. Cysto shows a 4cm trilobar obstructing prostate. I recommend stopping Androgel as this can cause prostate to grow more rapidly and worsen BPH symptoms. I recommend trying Alfuzosin 10mg daily to see if that improves his LUTS. Plan: -Rx Alfuzosin 10mg daily -RTC in 2 months with IPSS, FR, PVR -stop Androgel -all questions answered 02/16/2025 Nocturia (ICD-10 - R35.1) 74 y/o M with BPH with LUTS and severe nocturia. Previous PSA 2.6. Cysto shows a 4cm trilobar obstructing prostate. I recommend stopping Androgel as this can cause prostate to grow more rapidly and worsen BPH symptoms. I recommend trying Alfuzosin 10mg daily to see if that improves his LUTS. Plan: -Rx Alfuzosin 10mg daily -RTC in 2 months with IPSS, FR, PVR -stop Androgel -all questions answered 10/21/2024 Nocturia (ICD-10 - R35.1) 74 y/o M with BPH with LUTS and severe nocturia. IPSS continues to remain terrible. Previous PSA 2.6. PVR 69cc. Involving the Androgel and recommend continuing to hold, however, he would like to get back on at this time due concerns of his bone health and no improved LUTS. He continues to have bothersome LUTS. I suggested scheduling for in office cystoscopy for our further evaluation although he had negative scope previously a year ago with Dr. Jeffery. I also suggested trialing other medications such as Gemtesa or myrbetriq. He would like to see over a few months on if his symptoms improve with newly adjusted settings with CPAP prior to any further intervention. He will return in 4 months and reassess with UA/PVR. He may call sooner to move forward with further medication versus cystoscopy. For now, and through shared decision making we are in agreement with no further workup or intervention at this time with care plan, aside from what was mentioned. Patient has no other voiced concerns or questions. Patient satisfied with plan. 10/21/2024 Urinary frequency (ICD-10 - R35.0) 74 y/o M with BPH with LUTS and severe nocturia. IPSS continues to remain terrible. Previous PSA 2.6. PVR 69cc. Involving the Androgel and recommend continuing to hold, however, he would like to get back on at this time due concerns of his bone health and no improved LUTS. He continues to have bothersome LUTS. I suggested scheduling for in office cystoscopy for our further evaluation although he had negative scope previously a year ago with Dr. Jeffery. I also suggested trialing other medications such as Gemtesa or myrbetriq. He would like to see over a few months on if his symptoms improve with newly adjusted settings with CPAP prior to any further intervention. He will return in 4 months and reassess with UA/PVR. He may call sooner to move forward with further medication versus cystoscopy. For now, and through shared decision making we are in agreement with no further workup or intervention at this time with care plan, aside from what was mentioned. Patient has no other voiced concerns or questions. Patient satisfied with plan. 02/16/2025 Urinary frequency (ICD-10 - R35.0) 74 y/o M with BPH with LUTS and severe nocturia. Previous PSA 2.6. Cysto shows a 4cm trilobar obstructing prostate. I recommend stopping Androgel as this can cause prostate to grow more rapidly and worsen BPH symptoms. I recommend trying Alfuzosin 10mg daily to see if that improves his LUTS. Plan: -Rx Alfuzosin 10mg daily -RTC in 2 months with IPSS, FR, PVR -stop Androgel -all questions answered Plan Of Treatment Pending Test Test Name Order Date UroFlow 10/21/2024 Insurance Providers Payer Name Payer Address Payer Phone Subscriber Number Group Number Insured Name Patient Relationship to Insured Coverage Start Date Coverage End Date [employer] Medicare Replacemen t [address] [place], [place] [id number] Gurinder Hussein Self - patient is the insured Medical (General) History Medical History History ICD Code Arthritis Depression Diabetes Heart disease Hyperlipidemia Hypertension BPH incomplete emptying of the bladder weak urinary stream intermittent urination Surgical History Surgery Date(Month/Year) Pacemaker insertion 02/23 Cataract removal, bilateral 02/19 Hospitalization History Reason Date(Month/Year) Heart attack/covid 07/2013
--- OUTSIDE RECORDS SUMMARY | 2025-07-20 18:03 | XMS_ITS | Clinical Summary ---
Author Organization [facility] Address [address] [place] [address] Care Team Providers Care Banana Room Cutter Name Role Phone [facility], External Provider Primary Care Provider U navailable Allergies No known active allergies Medications glucosamine-cho ndroitin (ARTHX DS) 500-400 mg Capsule Take 1 Capsule by mouth. 02/06/2019 Active tamsulosin (FLOMAX) 0.4 mg capsule Take 0.4 mg by mouth daily. 02/06/2019 Active multivitamin (DAILY-BERNIE) tablet Take 1 Tablet by mouth daily. 02/06/2019 Active testosterone (ANDROGEL) 1 % (25 mg/2.5gram) Gel in Packet Apply to skin as directed daily. 02/06/2019 Active oxybutynin chloride (DITROPAN) 5 mg tablet Take 5 mg by mouth 3 times daily. 02/06/2019 Active methylphenidate HCI (METADATE CD) 20 mg Controlled Dispense capsule Take 20 mg by mouth daily. 02/06/2019 Active buPROPion (WELLBUTRIN) 75 mg tablet Take 75 mg by mouth 2 times daily. 02/06/2019 Active montelukast (SINGULAIR) 10 mg tablet Take 10 mg by mouth daily at bedtime. 02/06/2019 Active amLODIPine-ator vastatin 10-10 mg tablet Take 1 Tablet by mouth daily. 02/06/2019 Active olmesartan (BENICAR) 40 mg tablet Take 40 mg by mouth daily. 02/06/2019 Active divalproex (DEPAKOTE) 500 mg delayed release tablet Take 500 mg by mouth 3 times daily. 02/06/2019 Active sildenafiL (VIAGRA) 100 mg tablet Take 100 mg by mouth 1 time daily as needed for Erectile Dysfunction. 02/06/2019 Active metFORMIN (GLUCOPHAGE) 500 mg tablet Take 500 mg by mouth 2 times daily with meals. 02/06/2019 Active atorvastatin (LIPITOR) 40 mg tablet Take 40 mg by mouth daily with supper. 02/06/2019 Active doxycycline hyclate (VIBRAMYCIN) 100 mg capsule Take 1 Capsule (100 mg) by mouth 2 times daily. 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 Gender Identity Not on file Sexual Orientation Not on file Last Filed Vital Signs Vital Sign Reading Time Taken Comments Blood Pressure 122/76 02/06/2019 2:16 PM CDT Pulse 72 02/06/2019 2:16 PM CDT Temperature 36.7 C (98 F) 03/22/2014 2:40 PM CDT Respiratory Rate 16 03/22/2014 2:40 PM CDT Oxygen Saturation 99% 03/22/2014 2:40 PM CDT Inhaled Oxygen Concentration - - Weight 131.5 kg (290 lb) 02/06/2019 2:16 PM CDT Height 180.3 cm (5' 11 ) 02/06/2019 2:16 PM CDT Body Mass Index 40.45 02/06/2019 2:16 PM CDT Plan of Treatment Health Maintenance Due Date Last Done Comments DTAP/TDAP/TD VACCINES (1 - Tdap) 1970 COLORECTAL SCREENING 1996 Colorectal Cancer Screening 1996 FIT-DNA Q 3 years 1996 FIT/FOBT Q 1 year 1996 Flex Sig/CT Colonography Q 5 years 1996 PNEUMOCOCCAL VACCINE 50+ YEARS (1 of 1 - PCV) 07/23/20 ZOSTER VACCINE (1 of 2) 2001 INFLUENZA VACCINE (#1) 2025 RSV VACCINE (60+ or ) (1 - 1-dose 75+ series) 2026 Insurance [employer] PPO MCR [employer] Medicare Part D Care Teams Banana Room Cutter Relationship Specialty Start Date End Date [facility], External Provider [address] [place] [address] PCP - General 03/22/14
--- OUTSIDE RECORDS SUMMARY | 2025-07-20 18:03 | XMS_ITS | Patient Health Record ---
Author Organization [facility] Address [address] [place] [address] Care Team Providers Care Trauma Coordinator Name Role Phone Сергей Villatoro DO Primary Care Provider Unavail able Martha Velazquez Unavailable Boston Mcdonald Unavailable [phone] Allergies Allergen (clinical drug ingredient) Drug/Non Drug Allergy documented on EMR Reaction Allergy Type Onset Date Status Fulvicin P/G 165 Unknown Drug Allergy Active Results Component Value Reference Range Notes UA Without Micro-Auto, [place] - [id number] Reviewed date:06/11/2025 01:40:48 PM Interpretation: Performing Lab: Notes/Report: Glucose 0 Bili 0 Ketones +- Sp Banning 1.025 Blood 0 pH 6.0 Protein 0 Urobili 0 Nitrites 0 Leukocytes +- UA Without Micro-[place], [place] - [id number] Reviewed date:05/14/2025 01:55:39 PM Interpretation: Performing Lab: Notes/Report: Glucose +- Bili 0 Ketones +- Sp Banning 1.015 Blood 0 pH +- Protein 0 Urobili 0 Nitrites 0 Leukocytes 0 UA Without Micro-Auto, [place] - [id number] Reviewed date:04/16/2025 10:07:49 AM Interpretation: Performing Lab: Notes/Report: Glucose - Bili - Ketones +- Sp Banning 1.025 Blood - pH 5.5 Protein - Urobili - Nitrites - Leukocytes - Reason For Referral Reason BPH Diagnosis 1 Benign prostatic hyp erplasia with lower urinary tract symptoms, symptom details unspecified (N40.1) Referring Provider First Name Сергей Referring Provider Last Name Irving Referring Provider Speciality Family Med icine Referred Organization [facility] Referred Provider Boston Mcdonald Referred Address [address],[place], [place],[address], Referred Provider Specialty Urology General Notes Chichi Agrawal 03/05 04:29:10 PM >Lvm to schedule manager unix appt Referral Priority Routine Medications Medication SIG (Take, Route, Frequency, Duration) Notes Start Date End Date Status Depakote ER 500 MG Tablet Extended Release 24 Hour 1 tablet Orally Once a day Active Mirabegron ER 25 MG Tablet Extended Release 24 Hour 1 tablet by mouth daily; Duration: 30 days 04/16/2025 10/12/2025 Active Benicar 40 MG Tablet 1 tablet Orally Onc e a day Active buPROPion HCl 75 MG Tablet 2 tablets Ora lly Twice a day Active Multivitamin - Tablet 1 tablet Orally On ce a day Active Alfuzosin HCl ER 10 MG Tablet Extended Release 24 Hour 1 tablet immediately after the same meal Orally Once a day Active metFORMIN HCl ER 750 MG Tablet Extended Release 24 Hour 1 tablet with evening meal Orally Once a day Active amLODIPine Besylate 2.5 MG Tablet 1 tablet Orally Once a day Active Methylphenidate 20 MG/9HR Patch 1 patch to skin apply to alternating hips Transdermal Once a day Active Imiquimod 5 % Cream 1 application at bedtime, leave on for 8 hours then wash off Externally Three times a Week Active Lipitor 40 MG Tablet 1 tablet Orally Onc e a day Active Gabapentin 300 MG Capsule 1 capsule Oral ly Once a day Active hydrALAZINE HCl 100 MG Tablet 1 tablet with food Orally Twice a day Active Eliquis 5 MG Tablet as directed Orally Active Vitamin B Complex - Tablet as directed Orally Active Folic Acid 1 MG Tablet 1 tablet Orally O nce a day Active Vitamin D3 25 MCG (1000 UT) Capsule 1 capsule Orally Once a day Active Myrbetriq 25 MG Tablet Extended Release 24 Hour 1 tablet Orally Once a day; Duration: 30 days 04/23/2025 10/19/2025 Active Social History Tobacco Use: Social History Observation Description Date Details (start date - stop date) Never Smoker NA - NA Social History Tobacco Use: Social Info Question Answer Notes Tobacco Control (Standard) Tobacco use: Nonsmoker Section Notes: caffeine- pos alcohol- neg Problems Problem Type SNOMED Code ICD Code Onset Dates Problem Status W/U Status Risk Notes Problem Overactive bladder (601761064) Overactive bladder (N32.81) Active confirmed Problem Incomplete emptying of bladder (127876835) Feeling of incomplete bladder emptying (R39.14) Active confirmed Problem Lower urinary tract symptoms due to benign prostatic hypertrophy (82287676194872) Benign prostatic hyperplasia with lower urinary tract symptoms, symptom details unspecified (N40.1) Active confirmed Vital Signs Heart Rate 85 /min 06/11/2025 Temperature 97.3 degrees Fahrenheit 06/11/2025 Height-cm 180.34 cm 06/11/2025 Blood pressure diastolic 74 mm Hg 06/11/2025 Weight-kg 123.65 kg 06/11/2025 Height 71 in 06/11/2025 Blood pressure systolic 114 mm Hg 06/11/2025 Weight 272.6 lbs 06/11/2025 BMI 38.02 kg/m2 06/11/2025 Procedures Procedure Date Ordered Date Performed Result Body Sit e PVR (Post Void Residual) 04/16/2025 04/16/2025 0mL PVR (Post Void Residual) 06/11/2025 06/11/2025 N/A Encounters Encounter Location Date Provider Diagnosis [facility] [address] [place] [address] [place] [address] 04/16/2025 Boston Mcdonald Benign prostatic hyperplasia with lower urinary tract symptoms, symptom details unspecified N40.1 ; Overactive bladder N32.81 and Feeling of incomplete bladder emptying R39.14 [facility] [address] [place] [address] 05/14/2025 Martha Velazquez Overactive bladder N32.81 ; Benign prostatic hyperplasia with lower urinary tract symptoms, symptom details unspecified N40.1 and Feeling of incomplete bladder emptying R39.14 [facility] [address] [place] [address] 06/11/2025 Martha Velazquez Benign prostatic hyperplasia with lower urinary tract symptoms, symptom details unspecified N40.1 ; Feeling of incomplete bladder emptying R39.14 and Overactive bladder N32.81 [facility] [address] [place] [address] 03/17/2025 Boston Mcdonald [facility] [address] [place] [address] 04/23/2025 Boston Mcdonald [facility] [address] [place] [address] 05/13/2025 Boston Goodwinsay [facility] [address] [place] [address] 06/10/2025 Boston Goodwinsay [facility] [address] [place] [address] 07/08/2025 Boston Mcdonald [facility] [address] [place] [address] 07/08/2025 Boston Mcdonald Assessments Encounter Date Diagnosis (ICD Code) Assessment Notes Treatment Notes Treatment Clinical Notes Section Notes 04/16/2025 Overactive bladder (ICD-10 - N32.81) 05/14/2025 Overactive bladder (ICD-10 - N32.81) PLAN - CONTINUE TAKING MEDICATIONS PRESCRIBED. IF YOU NOTICE THEY ARE NOT WORKING WELL, PLEASE CONTACT THE OFFICE. 05/14/2025 Benign prostatic hyperplasia with lower urinary tract symptoms, symptom details unspecified (ICD-10 - N40.1) PLAN - CONTINUE TO TAKE MEDICATION PRESCRIBED. CONTINUE Alfuzosin and Myrbetriq 04/16/2025 Benign prostatic hyperplasia with lower urinary tract symptoms, symptom details unspecified (ICD-10 - N40.1) 06/11/2025 Benign prostatic hyperplasia with lower urinary tract symptoms, symptom details unspecified (ICD-10 - N40.1) 06/11/2025 Feeling of incomplete bladder emptying (ICD-10 - R39.14) 06/11/2025 Overactive bladder (ICD-10 - N32.81) 04/16/2025 Feeling of incomplete bladder emptying (ICD-10 - R39.14) 05/14/2025 Feeling of incomplete bladder emptying (ICD-10 - R39.14) Patient may come to the clinic for nurse visit if he feels they feel they are not emptying and need to have their bladder checked 04/16/2025 Other Continue alfuzosin 10mg 4-6 weeks with Michelle start mirabegron 25mg. If no improvement increase dosage to 50 mg and schedule possible cystoscopy. Also discussed with the patient about changing his behavioral patterns with what he drinks. I have recommended that he decrease his coffee intake to no more than 12 ounces in the morning. I have recommended that he decrease his milk intake throughout the day to no more than 16 ounces. I have recommended that he not have any milk within 4 hours of bedtime. I have discussed that he needs to increase water intake. 05/14/2025 Other Follow up in 4 weeks - UA and PVR Continue taking Alfuzosin increase Myrbetriq to 50 mg 06/11/2025 Other Will speak to Dr. Mcdonald reference Cystoscopy - EUS? Will trial Vibegron 75 mg for 4 weeks to see how he does with it in contrast to Myrbetriq Follow up in 4 weeks., UA PVR Plan Of Treatment No Information Insurance Providers Payer Name Payer Address Payer Phone Subscriber Number Group Number Insured Name Patient Relationship to Insured Coverage Start Date Coverage End Date [employer] Medicare Replacement - PPO [address] [place] [phone] [id number] Gurinder Downing Self - patient is the insured Medical (General) History Medical History History ICD Code Diabetes pacemaker hypertension Skin Cancer Surgical History Surgery Date(Month/Year) Back Surgery 1979 Pacemaker 2017 Hospitalization History Reason Date(Month/Year) See surgeries
--- OUTSIDE RECORDS SUMMARY | 2025-07-20 18:03 | XMS_ITS | Clinical Summary ---
Author [facility] Address [address] [place] [address] Care Team Providers Care Physical Sciences Professor Name Role Phone Unavailable Primary Care Provider Unavailabl e Allergies No known active allergies Medications oxybutynin chloride (DITROPAN) 5 mg tablet Take 5 mg by mouth 3 times daily. Active tamsulosin (FLOMAX) 0.4 mg capsule Take 0.4 mg by mouth daily. Active testosterone (ANDROGEL) 1 % (25 mg/2.5gram) Gel in Packet Apply to skin as directed daily. Active multivitamin (DAILY-BERNIE) tablet Take 1 Tablet by mouth daily. Active glucosamine-cho ndroitin (ARTHX DS) 500-400 mg Capsule Take 1 Capsule by mouth. Active methylphenidate HCI (METADATE CD) 20 mg Controlled Dispense capsule Take 20 mg by mouth daily. Active divalproex (DEPAKOTE) 500 mg delayed release tablet Take 500 mg by mouth 3 times daily. Active montelukast (SINGULAIR) 10 mg tablet Take 10 mg by mouth daily at bedtime. Active metFORMIN (GLUCOPHAGE) 500 mg tablet Take 500 mg by mouth 2 times daily with meals. Active buPROPion (WELLBUTRIN) 75 mg tablet Take 75 mg by mouth 2 times daily. Active atorvastatin (LIPITOR) 40 mg tablet Take 40 mg by mouth daily with supper. Active olmesartan (BENICAR) 40 mg tablet Take 40 mg by mouth daily. Active sildenafil (VIAGRA) 100 mg tablet Take 100 mg by mouth 1 time daily as needed for Erectile Dysfunction. Active amLODIPine-ator vastatin 10-10 mg tablet Take 1 Tablet by mouth daily. Active Active Problems No known active problems Social History Tobacco Use Types Packs/Day Years Used Date Smoking Tobacco: Never Smokeless Tobacco: Never Alcohol Use Standard Drinks/Week Comments Yes 0 (1 standard drink = 0.6 oz pur e alcohol) Sex and Gender Information Value Date Recorded Sex Assigned at Not on file Legal Sex Male 6:21 AM [employer] Gender Identity Not on file Sexual Orientation Not on file Last Filed Vital Signs Vital Sign Reading Time Taken Comments Blood Pressure 122/76 02/06/2019 2:16 PM CDT Pulse 72 02/06/2019 2:16 PM CDT Temperature - - Respiratory Rate - - Oxygen Saturation - - Inhaled Oxygen Concentration - - Weight 131.5 [...] (1 - 1-dose 75+ series) [address] [facility]
[2025-07-20 18:16] VITALS: BP 120/68; PULSE 75; RESP 18; TEMP 36.7; O2SAT 97; BMI 38.3
[2025-07-20 20:21] VITALS: BP 156/94; PULSE 75; O2SAT 97
--- NOTE | 2025-07-20 20:43 | W.ED.EXTPRO ---
HPI - Extremity Problem General: Chief complaint: Extremity Injury, Lower Stated complaint: right knee pain Time Seen by Provider: 07/20/25 20:16 Source: patient Mode of arrival: wheelchair Limitations: no limitations History of Present Illness: Patient is a nice 74-year-old male presents to ED today with a complaint of pain and swelling to his right knee. Patient states for many months he has been having pain to the posterior aspect of his right knee. Denies any known injury or trauma. He was told by his primary care provider that this most likely was a Michaels's cyst. Patient states every once in a while he will have flares/exacerbations where he feels like his knee will give out and buckle which was the case today which prompted his medical evaluation. He is complaining of knee swelling. He has not noticed any redness or warmth. MD Complaint: joint swelling and joint pain Onset (ago): hour(s) Pain Consistency: constant Location: right and lower extremity Quality: burning Radiation: none Relieving factors: immobilization Exacerbating factors: range of motion, weight bearing and walking Associated symptoms: Reports no associated symptoms; Deny chest pain or fever(s) Related Data Home Medications ?Medication ?Instructions ?Recorded ?Confirmed acetaminophen 500 mg tablet 500 mg PO PRN 02/02/21 02/23/25 (Tylenol Extra Strength) atorvastatin 40 mg tablet See Rx Instructions .Route .COMPLEX 02/02/21 02/23/25 bupropion HCl 75 mg tablet See Rx Instructions .Route .COMPLEX 02/02/21 02/23/25 diphenhydramine HCl 25 mg capsule 25 mg PO PRN 02/02/21 02/23/25 (Benadryl) methylphenidate HCl 20 mg tablet 20 mg PO BID 02/02/21 02/23/25 (Ritalin) multivitamin 1 tab PO DAILY 02/02/21 02/23/25 olmesartan 40 mg tablet (Benicar) 40 mg PO QAM 02/02/21 02/23/25 vitamin B complex 1 tab PO DAILY 02/02/21 02/23/25 divalproex 500 mg tablet,extended See Rx Instructions .Route .COMPLEX 06/14/21 02/23/25 release 24 hr cholecalciferol (vitamin D3) 25 25 mcg PO DAILY 11/07/21 02/23/25 mcg (1,000 unit) capsule gabapentin 300 mg capsule 300 mg PO TID 05/28/23 02/23/25 metformin 500 mg tablet 750 mg PO BID 01/15/24 02/23/25 alfuzosin 10 mg tablet,extended 10 mg PO DAILY 07/07/25 release 24 hr vibegron 75 mg tablet (Gemtesa) 75 mg PO DAILY 07/07/25 Previous Rx's ?Medication ?Instructions ?Recorded folic acid 1 mg tablet 1 mg PO DAILY #90 tabs 02/05/21 diabetic shoes with 3 custom #1 ea 01/01/23 inserts Diabetic shoes with 3 pairs of #1 ea 07/02/23 inserts apixaban 5 mg tablet (Eliquis) 5 mg PO BID #180 tabs 11/12/24 nitroglycerin 0.4 mg sublingual 0.4 mg sublingual Q5M PRN chest 02/23/25 tablet pain 30 days #30 tabs amlodipine 10 mg tablet 10 mg PO DAILY #100 tabs 06/24/25 hydralazine 100 mg tablet See Rx Instructions .Route 07/15/25 .COMPLEX #270 tabs hydrocodone 5 mg-acetaminophen 325 1 tab PO Q6H PRN pain #14 tabs 07/20/25 mg tablet methylprednisolone 4 mg tablets in See Rx Instructions PO .COMPLEX 07/20/25 a dose pack (Medrol (Shaun)) #21 ea Allergies Allergy/AdvReac Type Severity Reaction Status Date / Time griseofulvin (From Fulvicin Allergy ADR-Headach Verified 07/07/25 11:28 P/G) e Review of Systems Const: Denies: fever(s) Card: Denies: chest pain Resp: Denies: dyspnea Musc: Reports: joint pain (R knee) and joint swelling (R knee); Denies: extremity pain, extremity swelling, joint redness, joint warmth or joint stiffness Neuro: Reports: difficulty walking; Denies: numbness in extremities, weakness in extremities or sensory changes PFSH ED PFSH: Medical History BPH loc w urin obs/LUTS Lower urinary tract symptoms (LUTS) Androgen deficiency Hx of cardiac pacemaker Arthritis Bipolar disorder Type 2 diabetes mellitus History of hypertension Hx of hyperlipidemia NAILA (obstructive sleep apnea) Symptomatic bradycardia Shortness of breath Surgical History Hx of lumbosacral spine surgery Hx of cataract extraction Family History Father , age 97 CAD (coronary artery disease) Diabetes Stroke Mother , age 84 Cancer CAD (coronary artery disease) Social History Smoking and tobacco/nicotine status: former use of tobacco/nicotine Alcohol intake: former Substance/Drug Use: never Lives independently: Yes Marital status: Current occupational status: retired Physical Exam Const: COMMON NORMALS: no acute distress, patient oriented x3, no limitations, alert and well nourished GENERAL APPEARANCE: cooperative Extremity: COMMON NORMALS: capillary refill normal, no clubbing, cyanosis or edema, no calf tenderness and no pedal edema GENERAL: Yes normal exam except as noted RIGHT LOWER EXTREMITY: Yes knee joint (TTP posterior R knee) Right knee: Yes inspection (diffuse knee edema) and Yes neurovascular exam (normal) Neuro: COMMON NORMALS: patient oriented x3, moves all extremities, no focal motor deficits and no sensory deficits noted SENSORIUM/ORIENTATION: Yes alert Course Vital Signs: Vital signs: Vital Signs Temperature 98.1 F 07/20/25 18:16 Pulse Rate 75 07/20/25 20:21 Respiratory Rate 18 07/20/25 18:16 Blood Pressure 156/94 07/20/25 20:21 Pulse Oximetry 97 07/20/25 20:21 Oxygen Delivery Me thod Room Air 07/20/25 20:21 MDM - Extremity (Nontraumatic) Medical Decision Making Patient here for acute on chronic posterior right knee pain. He is now having diffuse knee edema. Was told in the past this could be secondary to a Michaels's cyst. Ultrasound performed today does not show evidence for a Michaels's cyst. He has not had any direct injury or trauma-XRs was not performed as they would be unlikely to change overall management. Discussed possibility of internal derangement of the knee. We will have him follow-up with orthopedics. Medical Records I reviewed the patient's medical records. XR interpretation done by ED provider, pending radiology final review (no Michaels's Cyst on US per Ezekiel[employer] tech) Discharge Plan Discharge Patient Disposition: Home Clinical Impression: Pain and swelling of right knee Condition: Stable Prescriptions: New hydrocodone-acetaminophen 5-325 mg tablet 1 tab PO Q6H PRN (Reason: pain) Qty: 14 0RF methylprednisolone [Medrol (Shaun)] 4 mg tablets,dose pack See Rx Instructions .ROUTE .COMPLEX Qty: 21 0RF Rx Instructions: orally per package directions No Action methylphenidate HCl [Ritalin] 20 mg tablet 20 mg PO BID atorvastatin 40 mg tablet See Rx Instructions .ROUTE .COMPLEX Rx Instructions: (takes) 40mg po mon,wed,fri (med bottle has) 40mg po bedtime olmesartan [Benicar] 40 mg tablet 40 mg PO QAM bupropion HCl 75 mg tablet See Rx Instructions .ROUTE .COMPLEX Rx Instructions: (takes) 150mg qam,75mg at noon, & 150mg at bedtime (medication bottle) 150mg qam, 75mg at noon, 75mg at bedtime multivitamin Tablet 1 tab PO DAILY vitamin B complex Tablet 1 tab PO DAILY acetaminophen [Tylenol Extra Strength] 500 mg tablet 500 mg PO PRN diphenhydramine HCl [Benadryl] 25 mg capsule 25 mg PO PRN cholecalciferol (vitamin D3) 25 mcg (1,000 unit) capsule 25 mcg PO DAILY metformin 500 mg tablet 750 mg PO BID gabapentin 300 mg capsule 300 mg PO TID (DME) diabetic shoes with 3 custom inserts See Rx Instructions .Route .MEDSUPPLY Qty: 1 0RF Rx Instructions: As directed alfuzosin 10 mg tablet extended release 24 hr 10 mg PO DAILY Rx Instructions: administer after the same meal each day Gemtesa 75 mg tablet 75 mg PO DAILY (DME) Diabetic shoes with 3 pairs of inserts See Rx Instructions .Route .MEDSUPPLY Qty: 1 0RF Rx Instructions: As directed Shoe John nitroglycerin 0.4 mg tablet, sublingual 0.4 mg sublingual Q5M PRN (Reason: chest pain) 30 Days Qty: 30 3RF Rx Instructions: until response; do not exceed 3 doses per episode Eliquis 5 mg tablet 5 mg PO BID Qty: 180 3RF amlodipine 10 mg tablet 10 mg PO DAILY Qty: 100 3RF hydralazine 100 mg tablet See Rx Instructions .ROUTE .COMPLEX Qty: 270 3RF Dose Instruction: TAKE 1 TABLET THREE TIMES A DAY Rx Instructions: TAKE 1 TABLET THREE TIMES A DAY folic acid 1 mg Tablet 1 mg PO DAILY Qty: 90 0RF divalproex 500 mg tablet extended release 24 hr See Rx Instructions .ROUTE .COMPLEX Rx Instructions: (takes) 1,000mg po bedtime Discharge Orders: Discharge ED (Routine); Ordered 07/20/25 Ordered By: Mary Kay Denton Referrals: Сергей Villatoro DO [Primary Care Provider, Family Practice] Patient Instructions: Opioid Safety, Pain Management, Patient Portal & Jennifer Instructions Activity Restrictions/Additional Instructions: As we discussed, we will place a case management referral to get you set up with orthopedics for further evaluation of your knee pain and swelling. Ultrasound today did not show evidence of a Michaels's cyst. We will place you on steroids and give you a small amount of pain medication she may take for significant discomfort. You can continue taking an iqzs-evc-rohxrej anti-inflammatory such as ibuprofen or naproxen. Print Language: Lithuanian Coding Level of Care Code ED Wrapper Opener for Leonel Evans
--- NOTE | 2025-07-20 20:53 | USR_ITS ---
PROCEDURE INFORMATION: Exam: US Right Limited Joint or Other Non-Vascular Extremity Structure Exam date and time: 07/20/2025 9:08 PM Age: 74 years old Clinical indication: Pain; Knee; Right; Additional info: R knee-eval osullivan's TECHNIQUE: Imaging protocol: US right limited joint or other nonvascular extremity structure. Real-time ultrasound with image documentation. Exam focused on the area of clinical interest. COMPARISON: [place] [id number] ORTH 01/01/2023 2:11 PM FINDINGS: Soft tissues: Unremarkable. No loculated collections. US/US soft tissue/extremity [id number] IMPRESSION: No acute findings.
[2025-07-20] MEDS: HYDROcodone-acetaminophen 5-325 mg Tablet 2 TAB PO (21:50)
[2025-07-20 22:00] VITALS: BP 124/87; PULSE 73; O2SAT 96
[2025-07-20 22:07] VITALS: BP 124/57; PULSE 81; O2SAT 95
--- NOTE | 2025-07-21 08:56 | DCPLANNER ---
Karene sent to Ortho for referral- Patient here for acute on chronic posterior right knee pain. He is now having diffuse knee edema. Was told in the past this could be secondary to a Michaels's cyst. Ultrasound performed today does not show evidence for a Michaels's cyst. He has not had any direct injury or trauma-XRs was not performed as they would be unlikely to change overall management. Discussed possibility of internal derangement of the knee. We will have him follow-up with orthopedics. Medical Records
== END 2025-07-20 22:07 | disposition home or self-care (01) ==
PROVIDERS: Emergency Provider Physician Assistant; PCP Electrodiagnostic Medicine
DX: M25.561 Pain in right knee (principal); R60.0 Localized edema; Z79.01 Long term (current) use of anticoagulants; Z87.891 Personal history of nicotine dependence; Z95.0 Presence of cardiac pacemaker; E11.9 Type 2 diabetes mellitus without complications; E78.5 Hyperlipidemia, unspecified; I10 Essential (primary) hypertension
CPT/HCPCS: 76882; 96372; 99284; J1100; J9999

== ENCOUNTER → 2025-08-03 13:23 | Outpatient (BNVA) | payer MEDICARE, SELFPAY | PROVIDERS: PCP Electrodiagnostic Medicine; Visit Provider Orthopaedic Surgery | DX: M25.561 Pain in right knee (principal); M17.0 Bilateral primary osteoarthritis of knee; M25.562 Pain in left knee; G89.29 Other chronic pain | CPT/HCPCS: 20610; 73560; 73565; 99204; J3301; J3490; J9999 ==

== ENCOUNTER → 2025-08-24 11:16 | Outpatient (BNVA) | payer MEDICARE, SELFPAY | PROVIDERS: PCP Electrodiagnostic Medicine; Visit Provider Orthopaedic Surgery | DX: M17.11 Unilateral primary osteoarthritis, right knee (principal) | CPT/HCPCS: 99213 ==

== ENCOUNTER → 2025-08-26 16:19 | Outpatient (BNVA) | payer MEDICARE, SELFPAY | PROVIDERS: PCP Electrodiagnostic Medicine; Visit Provider Internal Medicine Cardiovascular Disease | DX: Z45.018 Encounter for adjustment and management of other part of cardiac pacemaker (principal) | CPT/HCPCS: 93296 ==

== ENCOUNTER 2025-09-05 05:00 | Outpatient (RCR) | payer MEDICARE, SELFPAY | END 2025-10-04 23:59 | disposition home or self-care (01) | LOC: SPT 05:00 | PROVIDERS: PCP Electrodiagnostic Medicine; Visit Provider Orthopaedic Surgery | DX: M17.11 Unilateral primary osteoarthritis, right knee (principal) | CPT/HCPCS: 97110; 97162 ==

== ENCOUNTER → 2025-09-22 09:59 | Outpatient (BNVA) | payer MEDICARE, SELFPAY | PROVIDERS: PCP Electrodiagnostic Medicine; Visit Provider Nurse Practitioner Family | DX: R07.2 Precordial pain (principal); I48.20 Chronic atrial fibrillation, unspecified; Z79.01 Long term (current) use of anticoagulants; I10 Essential (primary) hypertension; I51.7 Cardiomegaly; G47.33 Obstructive sleep apnea (adult) (pediatric); Z95.0 Presence of cardiac pacemaker; Z86.39 Personal history of other endocrine, nutritional and metabolic disease; Z87.891 Personal history of nicotine dependence; R07.89 Other chest pain | CPT/HCPCS: 99214 ==

== ENCOUNTER 2025-10-05 06:30 | Outpatient (RCR) | payer MEDICARE, SELFPAY | END 2025-10-12 09:56 | disposition home or self-care (01) | LOC: SPT 06:30 | PROVIDERS: PCP Electrodiagnostic Medicine; Visit Provider Orthopaedic Surgery | DX: M17.11 Unilateral primary osteoarthritis, right knee (principal) | CPT/HCPCS: 97110; 97530 ==

== ENCOUNTER 2025-10-05 08:45 | Outpatient (CLI) | payer MEDICARE, SELFPAY ==
[2025-10-05 08:56] VITALS: BMI 38.3
--- NOTE | 2025-10-05 08:59 | ECG_ITS ---
Fareye Test Date: 2025-10-05 Pat Name: Gurinder Downing Department: Room: Gender: Male Dopster: : [id number] Requested By: Mary Kay Ding Order Number: [id number] Judge MD: Julita Chiu M.D. Interpretive Statements Lung unchanged pre/post procedure; Intraprocedure shortess of breath; Symptoms resoled by discharge PROCEDURE: At the baseline, the EKG revealed possibly atrial fibrillation with a demand V pacing 61. The baseline heart was 141/77 bpm with a blood pressue of mm of Hg Lexiscan was infused over a period of 20 seconds. A total of 0.4 milligrams of Lexiscan was infused. The stress phase was continued for a total of 5 minutes. Heart rate at the end of the stress phase was 61 bpm with a blood pressure 109/63 mm of Hg. The EKG at the peak infusion revealed no significant changes. Sestamibi was injected 20 seconds after the Lexiscan infusion. Heart rate at the end of the recovery phase was 61 bpm with a blood pressure of 120/67 mm of Hg. CONCLUSION: 1. The EKG changes with Lexiscan infusion is uninterpretable due to the pacing artifacts 2. No LexiScan induced chest pain or cardiac arrhythmia 3. Normal blood pressure and heart rate response 4. Sestamibi/sestamibi perfusion scan pending; see separate report. Electronically Signed On 10-06-2025 09:30:13 DEATH CLAIM CLERK by Julita Chiu M.D. [email or web address]
--- NOTE | 2025-10-05 08:59 | NMCV_ITS ---
NM zoila perf SPECT r/s* [id number] Gurinder Downing Age: 75 Gender: M : 1950 Exam Date: 10/05/2025 10:11 Ordering Phys: Mary Kay Ding NP Technologist: ALLEN Middleton Exam Location: [facility] Indications: cp STRESS TEST Please see separate stress test report in [facility] for full findings IMAGE PROTOCOL Rest/Stress 1 Lexiscan Day Radiopharmaceutical Dose (mCi) Administration Site Administered by Rest: Tc-99m 10.5 IV Honey Love, AIRCRAFT MECHANIC Sestamibi Stress:Tc-99m 33 IV Honey Ivan, AIRCRAFT MECHANIC Sestamibi Rest: 05-Oct-2025 60 Discovery 630 Stress: 05-Oct-2025 30 Discovery 630 0.4mg Lexiscan. Supine position only as patient was unable to lay prone. SPECT RESULTS Technical Quality: Good Raw Data Analysis: Normal Image Corrections: No attenuation or motion correction applied Summed Stress Score: 6 Summed Rest Score: 5 Summed Difference Score: 2 PERFUSION FINDINGS Small to moderate area of minimal to moderately decreased tracer uptake involving the mid and apical inferior, apical septal and LV apex. Some reversibility was noted in the apical septum and mid inferior wall region. FUNCTIONAL RESULTS (calculated via Gated SPECT) Stress Image LV EF (%): 72 Stress EDV (mL):166 TID: 1.04 Stress ESV (mL):47 FUNCTIONAL FINDINGS: Segmental wall motion analysis revealing no gross wall motion abnormalities IMPRESSIONS 1. Myocardial perfusion imaging revealing small to moderate area of minimal to moderate decrease tracer uptake involving the inferior and apical regions with minimal reversibility in the mid inferior and apical septal regions, suggesting myocardial scarring in the distribution of the right coronary artery/Left anterior descending artery with very small areas of josselin-infarction ischemia. 2. Normal LV ejection fraction of 72%. 3. LV wall motion analysis revealing no gross wall motion abnormalities. 4. Normal LV volume Compared to study from 04/03/2023, the ischemia appears to be new Dr Julita Chiu MD [facility] (Electronically Signed) Final Date: 05 October 2025 17:21 S
[2025-10-05 11:06] VITALS: BP 111/62; PULSE 61
== END 2025-10-05 08:46 | disposition home or self-care (01) ==
LOC: CDL 08:49
PROVIDERS: PCP Electrodiagnostic Medicine; Visit Provider Nurse Practitioner Family
DX: R07.9 Chest pain, unspecified (principal); I63.81 Other cerebral infarction due to occlusion or stenosis of small artery
CPT/HCPCS: 36415; 78452; 93017; 96374; A9500; J2785

== ENCOUNTER 2025-10-21 07:18 | Outpatient (CLI) | payer MEDICARE, SELFPAY ==
[2025-10-21] VITALS (32 sets, daily range): BP systolic 113–167; BP diastolic 63–94; PULSE 60–93; RESP 11–21; TEMP 36.7; O2SAT 93–98; BMI 38.3
--- NOTE | 2025-10-21 07:30 | XACV_ITS ---
Exam Room: 2 Ht: 180 cm Wt: 125 kg BSA: 2.55 m2 Gender: Male : 1950 Any Known Allergies: Other Exam Priority: Routine Procedure(s): Procedure Description: Diagnostic procedure Procedure Description: Left Heart Catheterization Procedure Description: Coronary Angiography Aram [facility]; Diagnostic Cath Status: Elective Diagnostic Findings * Main is admitting to [place] with minimal intimal irregularities. * The Left anterior descending artery is a medium caliber vessel which appears to taper off towards the LV apex. The artery appears to have a long segment of extrinsic compression in the mid segment. The first diagonal branch has a high takeoff. It appears to have a bigger caliber than the LAD proper. No significant is noted lesions were noted. The second diagonal branch also takes off proximally with no significant lesions.. * The left circumflex artery is a medium caliber vessel which gives off a high obtuse marginal branch with no significant stenotic lesions. There is a low elongated recurrent atrial branch which crosses the midline to go to the right side of the heart. * There is a medium caliber limitus artery which appears to bifurcate proximally. Minimal intimal irregularities were noted in this vessel. * The right coronary artery is a medium to large caliber dominant vessel with no significant stenotic lesions. Minimal intimal irregularities were noted at the distal segment of the artery. Conclusions 1. This is a 75-year-old white male with history of hypertension, atrial fibrillation, dyslipidemia, sleep apnea and obesity, presents with complaints of chest pain and shortness of breath. He had a Myocardial perfusion imaging which revealed areas of fixed defects with small areas of reversible defects. Because of the increasing episodes of chest pains, in order to further evaluate the coronary status, a cardiac catheterization was recommended. Patient underwent left heart catheterization with left and right coronary angiogram today. The findings are as follows. 2. Left main has minimal intimal irregularities. LAD was found to have a long segment of extrinsic compression at the mid portion. Minimal plaques in the other vessels. LVEDP of 23 mmHg. 3. Based on the above angiographic findings, it was opted to treat the patient medically. He was transferred to the medical floor in stable condition. Diagnostic RX Recommendation: medical therapy and/or counseling LV EDP: 23 mmHg Left Ventriculography Findings: * The LV gram was not performed because of the concern about the dye overload. LVEDP was 23 mmHg. Pressures Phase:Rest AO : 107 / 72 ( 87 ) @ 9:57:00 AM 130 / 71 ( 94 ) @ 10:03:00 AM LV : 120 / 7 / 23 @ 10:02:00 AM 137 / 5 / 22 @ 10:03:00 AM Valves Phase:DefaultPhase AV : 0.0 @ 10:09:54 AM AV Mean Gradient: 0.0 @ 10:09:54 AM Clinical Evaluation EBL: 5mL-10mL Procedural Details Procedure Consent Obtained. Current Diagnosis : Chest Pain. Pre-Procedure Time Out. Identified patient by full name and date of as verbalized by the patient/guarantor. Does the consent match the physician's order: Yes. Accurate & Complete Informed Consent: Yes. Inpatient/Outpatient History & Physical on Chart: Yes. If H&P is completed, is and addenduem needed: No; If yes, is the addendum complete: N/A. Visualize and Verify Site with Patient/Guarantor: N/A. Relevant Radiology Images available: Yes. Pre-op teaching completed and patient verbalized understanding. The risks, benefits, and alternatives of sedation and/or procedure were discussed by physician. The patient agrees to continue. Procedure started. [facility] Clinical Fraility Score: 4: Vulnerable. Merchandising Assistant Indications: Worsening Angina. Chest Pain Symptom Assessment: Typical Angina Symptoms. Correct patient, site and procedure confirmed by cath team. Current diagnosis: Chest Pain. PERRLA. Strong, equal hand feather drying machine operator bilaterally. Lungs clear x 5 lobes. IV Site on Arrival: 20 gauge in the right anticubital. IV Fluids: 0.9% NaCl at KVO. 0 mL infused prior to aquatic life laborer. Pre Procedural Pulses: bilateral dorsalis pedis was 2+. Pre Procedural Pulses: bilateral posterior tibial was 2+. Pre Procedural Pulses: bilateral radial was 3+. Oxygen started at 2liters/min via nasal canula. right groin was prepped with chloroprep then draped in the usual sterile fashion. right radial was prepped with chloroprep then draped in the usual sterile fashion. Baseline sample Acquired. HR: 86 BPM. Physician arrived. Physician scrubbed in. Immediate Pre-Procedure Time Out. Correct Patient: Yes; Correct Procedure: Yes; Correct Site: Yes; Correct Patient Position: Yes; Correct Supplies: Yes; Dried Flammable Prep: Yes; Blood Products Available: N/A;. Lidocaine 1% infiltrated to the right radial. Arterial access obtained. A 5 [place] citizen Xavi catheter in over wire. Multiple views taken of left coronary artery. Catheter removed over the exchange wire. A 5 [place] citizen JR4 catheter in over wire. EDP Sample taken: LV 120/7,23; HR: 62 BPM; SpO2: 96%. Pullback taken: LV 137/5,22; AO 130/71(94); Mean: 0mmHg, Peak to Peak: 0mmHg, SEP: 5sec/min; HR: 61 BPM; SpO2: 97%. Multiple views taken of right coronary artery. Catheter removed over the exchange wire. A TR Band was successful obtaining hemostatsis at the Right Radial artery insertion site. Post Procedure: Pulses reassessed and unchanged. PERRLA. Strong, equal hand feather drying machine operator bilaterally. No VTE prophylaxis required. Medication's Wasted: Lidocaine 1% = 18 mL. Total IV fluids: 40 mL. Medication's Wasted: Nitro = 49.8 mcg. Medication's Wasted: Heparin = 1000 units. Medication's Wasted: Other = Fentanyl 25 mcg. Vital chart was stopped. Post-op diagnosis: Non-obstructive CAD. Complications: None. Estimated blood loss: 5mL-10mL. Responsiveness - Normal response to verbal stimuli; alert and oriented, PERRLA. Airway - Unaffected, no intervention required; spontaneous ventilation. Circulation: W/N/L, pulses unchanged. Nausea/Vomiting: No. Procedure completed. Patient transferred by stretcher to CPRU. Access Site Site: Right Radial artery Sheath Size: 6 Fr Hemostasis Method: TR Band Hemostasis Success: Successful Procedure Medications Start: 9:42 AM Stop: 9:42 AM Medication: Versed Amount: 1 mg Route: I.V. Start: 9:42 AM Stop: 9:42 AM Medication: Fentanyl Amount: 50 mcg Route: I.V. Start: 9:49 AM Stop: 9:49 AM Medication: Versed Amount: 1 mg Route: I.V. Start: 9:51 AM Stop: 9:51 AM Medication: Nitrogylcerin Amount: 200 mcg Route: I.A. Start: 9:51 AM Stop: 9:51 AM Medication: Verapamil Amount: 5 mg Route: I.A. Start: 9:55 AM Stop: 9:55 AM Medication: Fentanyl Amount: 25 mcg Route: I.V. Start: 9:55 AM Stop: 9:55 AM Medication: Heparin Amount: 5000 units Route: I.V. I, the attending physician, have reviewed and verified all procedure medications. Yes, all medications given per verbal order History/Risk Factors Hypertension: Yes Dyslipidemia: Yes Peripheral Arterial Disease (PAD): No Myocardial Infarction (IN): No Obesity: No Renal Disease: No Tobacco Use: Former Prior Interventions PCI: No CABG: No Valve Surgery: No Report Signatures Finalized by Dr Julita Chiu MD [facility] on 10/21/2025 07:47 PM
[2025-10-21 08:03] LABS: Hematocrit 47.5 % (37-53); Hemoglobin 16.00 g/dL (11.27-16.99); Mean Corpuscular HGB Conc 33.7 g/dL (30-55); Mean Corpuscular Hemoglobin 32.2 pg (27-33); Mean Corpuscular Volume 95.6 fl (82-101); Nucleated Red Blood Cells % 0 %; Platelet Count 192 10^3/cmm (157-399); Red Blood Count 4.97 10^6/uL (3.85-5.65); White Blood Count 6.77 10^3/uL (3.29-11.43)
--- NOTE | 2025-10-21 08:19 | P.HPUD_ITS ---
Surgery/Procedure H&P Update DATE OF PROCEDURE: October 21, 2025 DATE H&P PERFORMED: 09/22/25 H&P UPDATE INFORMATION: I have reviewed H&P completed within last 30 days, I have examined patient prior to procedure and No changes to prior documentation PREOP DIAGNOSIS: Atherosclerotic heart disease PRIMARY INDICATION FOR PROCEDURE: Atrial fibrillation, chest pain, abnormal Myocardial perfusion imaging PLANNED PROCEDURE: Operation Date: 10/21/25 08:30 Proposed Procedures p C w/wo LV & Coros(Left) - Julita Chiu MD PATIENT REASSESSED PRIOR TO SEDATION, WITH NO CHANGE NOTED: Yes PHYSICAL EXAM: alert, oriented x 3, clear to auscultation bilaterally and reg ular rate & rhythm AIRWAY EVAL/ANESTHESIA PLAN: normal airway, see other exam findings, ASA II, Monitored Anesthesia, Local Anesthesia, Risks, benefits & alternatives of sedati on and/or procedure discussed and Patient agrees to continue as planned
[2025-10-21 08:25] LABS: Anion Gap 17.0 (5-19); Blood Urea Nitrogen 23 mg/dL (8-23); Calcium 9.5 mg/dL (8.5-10.5); Carbon Dioxide 23 mmol/L (22-29); Chloride 107 mmol/L (98-107); Glucose 160 mg/dL (65-115); Osmolality Calculated 303 mOsm/kg (285-295); Potassium 4.0 mmol/L (3.5-5.1); Sodium 143 mmol/L (136-145)
--- NOTE | 2025-10-21 10:11 | PM.OP ---
Operative Report Date of procedure: October 21, 2025 Surgeon: Julita Chiu MD Procedure: The patient underwent left heart catheterization with a left and right coronary angiogram today. He was found to have minimal plaque in the coronary arteries. The LVEDP was 23 mmHg. Based on the above findings, patient will be treated medically.
--- NOTE | 2025-10-21 13:56 | PC.NURSE ---
Report given to ALEXANDER Dwyer in PACU.
--- NOTE | 2025-10-21 14:08 | SUR.PHASEII ---
1851-Patient arrived from dental laboratory technician via gurney and family at bedside. Site was viewed with RN, site was marked where hematoma present. VS WNL
--- NOTE | 2025-10-21 14:09 | SUR.PHASEII ---
1410-patient ambulated with standby assist to the restroom
--- NOTE | 2025-10-21 14:32 | SUR.PHASEII ---
1430-2 ml removed from TR band to right wrist.
--- NOTE | 2025-10-21 14:46 | SUR.PHASEII ---
1445-2 ml removed from TR band. Bulb on band is flat reflecting no air remaining in band. Site looks good, hematoma has not changed in size.
--- NOTE | 2025-10-21 15:02 | SUR.PHASEII ---
1500-Removed TR band and observed site. Hematoma present with no change, no bleeding at site.
--- NOTE | 2025-10-21 15:52 | SUR.PHASEII ---
Site cleaned and no changes are noted. Hematoma reflects no change.
--- NOTE | 2025-10-21 16:13 | SUR.PHASEII ---
1412-Site remains clean and dry with no changes to hematoma.
== END 2025-10-21 07:19 | disposition home or self-care (01) ==
PROVIDERS: PCP Electrodiagnostic Medicine; Visit Provider Internal Medicine Cardiovascular Disease
DX: I48.91 Unspecified atrial fibrillation (principal); I10 Essential (primary) hypertension; E78.5 Hyperlipidemia, unspecified; Z87.891 Personal history of nicotine dependence; Z95.0 Presence of cardiac pacemaker; G47.33 Obstructive sleep apnea (adult) (pediatric); Z99.89 Dependence on other enabling machines and devices; F31.9 Bipolar disorder, unspecified; R00.1 Bradycardia, unspecified; Z79.84 Long term (current) use of oral hypoglycemic drugs; Z79.891 Long term (current) use of opiate analgesic
CPT/HCPCS: 36415; 80048; 85025; 93458; 99152; 99153; C1769; C1887; C1894; J1644; J2250; J3010; J3490; J7030; J9999; Q0163; Q9967

== ENCOUNTER 2025-10-31 17:47 | Inpatient (IN) | payer MEDICARE, SELFPAY ==
--- OUTSIDE RECORDS SUMMARY | 2025-07-09 08:30 | XMS_ITS ---
Author Organization [facility] Address [address] [address] Care Team Providers Care Harpoon Engagement Planning Operator Name Role Phone Сергей Villatoro DO Primary Care Provider Unavail Martha Anderson Unavailable [phone] REASON FOR VISIT 4w f/u w ua and pvr Encounters Encounter Location Date Provider Diagnosis [facility] [address] [place] [address] [address] [place] [address] 07/09/2025 Martha Velazquez Plan Of Treatment No Information Progress Notes * CHANG GurinderDOB:1950 ( 75 yo M)Acc No.[id number]:07/09/2025 Progress Notes Patient: Gurinder Monk Provider: VERONICA Weber :1950 A ge:74 Y S ex:Male Date:07/09/2025 Address: [id number] Pcp:Сергей Villatoro DO Subjective: * Chief Complaints: * 4 w f/u w ua and pvr * Electronic signature of VERONICA Esquivel on 10/31/2025 at 05:51 PM CLIENT SERVICES COORDINATOR Sign off status: Pending * Provider: VERONICA Weber Date: 0 07/09/2025 Generated for Rajan rogers/Aman/eTransmitting on: 1 01/01/2025 05:51 PM CLIENT SERVICES COORDINATOR
[2025-10-31] VITALS (7 sets, daily range): BP systolic 103–155; BP diastolic 45–77; PULSE 65–96; RESP 16–19; TEMP 36.7; O2SAT 90–94; BMI 35.8
--- OUTSIDE RECORDS SUMMARY | 2025-10-31 17:51 | XMS_ITS | Clinical Summary ---
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
--- OUTSIDE RECORDS SUMMARY | 2025-10-31 17:51 | XMS_ITS | Clinical Summary ---
Author Organization [facility] Address [address] 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
--- OUTSIDE RECORDS SUMMARY | 2025-10-31 17:51 | XMS_ITS | Patient Health Record ---
Author Organization [facility] Address [address] [place] [address] Care Team Providers Care Day Care Provider Name Role Phone Сергей Villatoro DO Primary Care Provider Unavail able Martha Velazquez Unavailable [place] Mcdonald Unavailable [phone] Allergies Allergen (clinical drug ingredient) Drug/Non Drug Allergy documented on EMR Reaction Allergy Type Onset Date Status Fulvicin P/G 165 Unknown Drug Allergy Active Results Component Value Reference Range Notes UA Without Micro-Auto, [place] - [id number] Reviewed date:05/14/2025 01:55:39 PM Interpretation: Performing Lab: Notes/Report: Glucose +- Bili 0 Ketones +- Sp [place]asper 1.015 Blood 0 pH +- Protein 0 Urobili 0 Nitrites 0 Leukocytes 0 UA Without Micro-Auto, [place] - [id number] Reviewed date:06/11/2025 01:40:48 PM Interpretation: Performing Lab: Notes/Report: Glucose 0 Bili 0 Ketones +- Sp Jasper 1.025 Blood 0 pH 6.0 Protein 0 Urobili 0 Nitrites 0 Leukocytes +- UA Without Micro-Auto, [facility] [place] - [id number] Reviewed date:04/16/2025 10:07:49 AM Interpretation: Performing Lab: Notes/Report: Glucose - Bili - Ketones +- Sp [place]asper 1.025 Blood - pH 5.5 Protein - Urobili - Nitrites - Leukocytes - Reason For Referral Reason BPH Diagnosis 1 Benign prostatic hyp erplasia with lower urinary tract symptoms, symptom details unspecified (N40.1) Referring Provider First Name Сергей Referring Provider Last Name Irving Referring Provider Speciality Family Med icine Referred Organization [facility] Referred Provider [place] Mcdonald Referred Address [address],[place], [place],[address], Referred Provider Specialty Urology General Notes Chichi Agrawal 03/05 04:29:10 PM >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 Referral Priority Routine Medications Medication SIG (Take, Route, Frequency, Duration) Notes Start Date End Date Status Depakote ER 500 MG Tablet Extended Release 24 Hour 1 tablet Orally Once a day Active Benicar 40 MG Tablet 1 tablet [...] 1 capsule Orally Once a day Active Social History [...] W/U Status Risk Notes Problem Overactive bladder (697171069) Overactive bladder (N32.81) Active confirmed Problem Incomplete emptying of bladder (379354538) Feeling of incomplete bladder emptying (R39.14) Active confirmed Problem Lower urinary tract symptoms due to benign prostatic hypertrophy (64548423828173) Benign prostatic hyperplasia with lower urinary tract symptoms, symptom details unspecified (N40.1) Active confirmed Vital Signs Heart Rate 85 /min 06/11/2025 Temperature 97.3 degrees Fahrenheit 06/11/2025 Blood pressure diastolic 74 mm Hg 06/11/2025 Height-cm 180.34 cm 06/11/2025 Weight-kg 123.65 kg 06/11/2025 Height 71 in 06/11/2025 Blood pressure systolic 114 mm Hg 06/11/2025 Weight 272.6 lbs 06/11/2025 BMI 38.02 kg/m2 06/11/2025 Procedures Procedure Date Ordered Date Performed Result Body Sit e PVR (Post Void Residual) 04/16/2025 04/16/2025 0mL PVR (Post Void Residual) 06/11/2025 06/11/2025 N/A Encounters Encounter Location Date Provider Diagnosis [facility] [address] [place] [address] 06/11/2025 Martha Velazquez Benign prostatic hyperplasia with lower urinary tract symptoms, symptom details unspecified N40.1 ; Feeling of incomplete bladder emptying R39.14 and Overactive bladder N32.81 [facility] [address] [place] [address] 05/14/2025 Martha Velazquez Overactive bladder N32.81 ; Benign prostatic hyperplasia with lower urinary tract symptoms, symptom details unspecified N40.1 and Feeling of incomplete bladder emptying R39.14 [facility] [address] [place] [address] 04/16/2025 Boston Mcdonald Benign prostatic hyperplasia with lower urinary tract symptoms, symptom details unspecified N40.1 ; Overactive bladder N32.81 and Feeling of incomplete bladder emptying R39.14 [facility] [address] [place] [address] 04/23/2025 Boston [facility] [address] [place] [address] 03/17/2025 Boston Goodwinsay [facility] [address] [place] [address] 07/08/2025 Boston Goodwinsay [facility] [address] [place] [address] 07/08/2025 Boston Goodwinsay [facility] [address] [place] [address] 06/10/2025 Boston Mcdonald [facility] [address] [place] [address] [place] [address] 05/13/2025 Boston Mcdonald Assessments Encounter Date Diagnosis (ICD Code) Assessment Notes Treatment Notes Treatment Clinical Notes Section Notes 05/14/2025 Overactive bladder (ICD-10 - N32.81) PLAN - CONTINUE TAKING MEDICATIONS PRESCRIBED. IF YOU NOTICE THEY ARE NOT WORKING WELL, PLEASE CONTACT THE OFFICE. 05/14/2025 Benign prostatic hyperplasia with lower urinary tract symptoms, symptom details unspecified (ICD-10 - N40.1) PLAN - CONTINUE TO TAKE MEDICATION PRESCRIBED. CONTINUE Alfuzosin and Myrbetriq 04/16/2025 Overactive bladder (ICD-10 - N32.81) 04/16/2025 Benign prostatic hyperplasia with lower urinary tract symptoms, symptom details unspecified (ICD-10 - N40.1) 06/11/2025 Feeling of incomplete bladder emptying (ICD-10 - R39.14) 06/11/2025 Benign prostatic hyperplasia with lower urinary tract symptoms, symptom details unspecified (ICD-10 - N40.1) 06/11/2025 Overactive bladder (ICD-10 - N32.81) 04/16/2025 [...] [employer] Medicare Replacement - PPO [address] [place] [address] [id number] Gurinder Downing Self - patient is the insured Medical (General) History Medical History History ICD Code Diabetes pacemaker hypertension Skin Cancer Surgical History Surgery Date(Month/Year) Pacemaker 2016 Back Surgery 1979 Hospitalization History Reason Date(Month/Year) See surgeries
--- OUTSIDE RECORDS SUMMARY | 2025-10-31 17:51 | XMS_ITS | Patient Health Record ---
Author Organization [facility] Address [address] [facility] [place] [address] Care Team Providers Care Experienced Truck Driver Name Role Phone Сергей Villatoro Primary Care Provider Kenny Mancia Unavailable [phone] RO RIVERA Unavailable [phone] Allergies Allergen (clinical drug ingredient) Drug/Non Drug Allergy documented on EMR Reaction Allergy Type Onset Date Status fulvestrant Fulvestrant Unknown Drug Allergy Act livia Results Component Value Reference Range Notes Urinalysis, Routine Reviewed date:02/16/2025 03:58:06 PM Interpretation: Performing Lab: Notes/Report: Urine-Color yellow Appearance clear Glucose - Bilirubin - Ketones trace Specific [place] 1.015 Occult Blood - pH 6.5 Urine Protein - Urobilinogen,Semi-Qn - Nitrite, Urine - WBC Esterase - Urinalysis Gross Exam - Reason For Referral No Information Medications Medication SIG (Take, Route, Frequency, Duration) Notes Start Date End Date Status amLODIPine Besylate 2.5 MG Tablet 1 tablet Orally Once a day Active Tamsulosin HCl 0.4 MG Capsule 1 capsule Orally Once a day Not-Taking hydrALAZINE HCl 100 MG Tablet 1 tablet with food Orally Twice a day Active Vitamin D3 Active buPROPion HCl 75 MG Tablet 2 tablets Orally Twice a day Active HYDROcodone-Acetaminophen 5-325 MG Tablet 1 tablet as needed Orally every 6 hrs Active Benicar 40 MG Tablet 1 tablet Orally Onc e a day Active Gabapentin 300 MG Capsule 1 capsule Oral ly Once a day Active Eliquis 5 MG Tablet as directed Orally Active Ibuprofen 200 MG Capsule 1 capsule with food or milk as needed Orally Three times a day Active Lipitor 40 MG Tablet 1 tablet Orally Onc e a day Active Tylenol 325 MG Capsule 1 capsule as need ed Orally every 6 hrs Active Depakote 500 MG Tablet Delayed Release 1 tablet Orally Twice a day Active Vitamin B Complex - Tablet as directed Orally Active Glucosamine 500 MG Capsule 1 capsule with meals Orally Three times a day Active Multivitamin - Tablet 1 tablet Orally On ce a day Active AndroGel Active Methylphenidate HCl 20 MG Tablet 1 tablet on an empty stomach Orally Twice a day Active Alfuzosin HCl ER 10 MG Tablet Extended Release 24 Hour 1 tablet immediately after the same meal Orally Once a day; Duration: 90 days 02/17/2025 02/12/2026 Active Folic Acid 1 MG Tablet 1 tablet Orally O nce a day Active metFORMIN HCl 1000 MG Tablet 1 tablet with a meal Orally Once a day Active Social History Tobacco Use: Social History Observation Description Date Details (start date - stop date) Never Smoker NA - NA Social History Tobacco Use: Social Info Question Answer Notes Tobacco Control (Standard) Tobacco use: Nonsmoker Problems Problem Type SNOMED Code ICD Code Onset Dates Problem Status W/U Status Risk Notes Problem Nocturia (687772412) Nocturia (R35.1) Active confirmed Problem Lower urinary tract symptoms due to benign prostatic hypertrophy (03919889833100) Benign prostatic hyperplasia with lower urinary tract symptoms (N40.1) Active confirmed Problem Urgent desire to urinate (10501538) Urinary urgency (R39.15) Active confirmed Problem Benign prostatic hypertrophy with outflow obstruction (319143743) BPH loc w urin obs/LUTS (N40.1) Active confirmed Vital Signs Height-cm 180.34 cm 02/16/2025 Weight-kg 124.74 kg 02/16/2025 Height 71 in 02/16/2025 Weight 275 lbs 02/16/2025 BMI 38.35 kg/m2 02/16/2025 Encounters Encounter Location Date Provider Diagnosis [facility] [address] [facility] [place] [address] 02/16/2025 RO RIVERA BPH loc w urin obs/LUTS N40.1 ; Urinary urgency R39.15 ; Nocturia R35.1 and Urinary frequency R35.0 [facility] [address] [facility] [place] [address] 02/17/2025 Kenny Bruce [facility] [address] [facility] [place] [address] 03/27/2025 Kenny Bruce Assessments Encounter Date Diagnosis (ICD Code) Assessment Notes Treatment Notes Treatment Clinical Notes Section Notes 02/16/2025 Urinary urgency (ICD-10 - R39.15) 74 [...] PVR -stop Androgel -all questions answered 02/16/2025 Urinary frequency (ICD-10 - R35.0) 74 [...] Date [employer] Medicare Replacemen t [address] [place], [place] [id number] Gurinder Hussein Self - patient is the insured Medical (General) History Medical History History ICD Code Arthritis Depression Diabetes Heart disease Hyperlipidemia Hypertension BPH incomplete emptying of the bladder weak urinary stream intermittent urination Surgical History Surgery Date(Month/Year) Pacemaker insertion 02/23 Cataract removal, bilateral 02/19 Hospitalization History Reason Date(Month/Year) Heart attack/covid 07/2013
--- OUTSIDE RECORDS SUMMARY | 2025-10-31 17:52 | XMS_ITS | Data Portability ---
Author Organization ALIREZA Montez Del [facility] Address [address] [address] Care Team Providers Care Director Life Name Role Phone CEE MONTALVO Primary Care Provider Unavailabl e Assessment Encounter Date Assessment Date Assessment LastModified by Organization Details LastModified Time 11/24/2024 11/24/2024 A Care Coordination Assessment form was filled out as part of this patient's office visit today. [email or web address] Not available 11/24/2024 13:02:51 07/08/2025 07/08/2025 Document scribed by Bacilio Viramontes Service Rig Operator. I was present during interview and exam. I have reviewed and agree with above documentation. Dr. Cee Montalvo. [email or web address] Not available 07/08/2025 14:25:44 07/22/2025 07/22/2025 Document scribed by Bacilio Viramontes Service Rig Operator. I was present during interview and exam. I have reviewed and agree with above documentation. Dr. Cee Montalvo. [email or web address] Not available 07/22/2025 16:14:47 Plan of Treatment Reminders Order Date Submit Date Provider Last Modified By Organization Details Last Modified Time Details Appointments RECHECK 2025 10:20A M Cee Montalvo, DO Not available Not available Not available Lab hemoglobi n A1C/hemog lobin total, QN, blood 2024 0903/ 025 KEVEN [facility], [address], [address], [place], [address], 07/08/2025 17:26:00 lipid panel, blood 2024 025 KEVEN [facility], [address], [address], [place], [address], 07/08/2025 16:43:14 CBC 2024 025 KEVEN [facility], [address], [address], [place], [address], 07/08/2025 15:38:18 hemoglobi n A1C/hemog lobin total, QN, blood [email or web address], [address], [address], [place], [address], 03/10/2025 08:49:32 CMP, serum or plasma 2024 [address] [facility], [address], [address], [place], [address], 03/10/2025 08:49:32 CBC 2024 [address] [facility], [address], [address], [place], [address], 03/10/2025 08:49:32 microalbu min/creat inine, mass ratio, urine 2024 025 [facility], [address] [place] [address] [address], [address] [place], [address], 11/25/2024 11:48:20 hemoglobi n A1C/hemog lobin total, QN, blood 2024 025 KEVEN [facility], [address], [address], [place], [address], 11/24/2024 13:54:13 CMP, serum or plasma 2024 025 [facility], [address], [address], [place], [address], 11/24/2024 14:21:36 lipid panel, blood 2024 025 [facility], [address], [address], [place], [address], 11/24/2024 14:21:38 CBC 2024 025 [facility], [address], [address], [place], [address], 11/24/2024 13:39:25 Referral urologist referral 2024 025 [email or web address] Boston Suarez MD, [address] , [address], [place], [address], 03/17/2025 11:57:25 Procedures None recorded. Surgeries None recorded. Imaging MRI, knee, w/o contrast - Pt has MRI compatibl e pacer. Device: Seda DALEY DR MRI [id number] Serial number: [id number] G [address] (Schedluing & Pre Registration) , [address] [place], [address], 07/30/2025 15:58:23 Medication Orders divalproe x ER 500 mg tablet,ex tended release 24 hr 2024 025 [facility][id number], [address], [place], [place], [id number], 07/08/2025 14:55:25 methylphe nidate 20 mg tablet 2024 025 [facility] #[id number], [address], [place], [place], [id number], 07/08/2025 14:55:25 doxycycli ne hyclate 100 mg capsule 2024 025 [facility] #[id number], [address], [address], [place], [address], 05/21/2025 05:01:43 prednison e 20 mg tablet 2024 025 [facility] #[id number], [address], [address], [place], [address], 05/18/2025 05:02:03 methylphe nidate 20 mg tablet 2024 025 [id number], [address], [place], [place], [id number], 03/03/2025 15:07:14 Patient TargetsNo targets recorded. Patient InstructionsNo instructions recorded. Reason for Referral Urologist Referral for Benig n prostatic hyperplasia with outflow obstruction Referring Physician: Cee Montalvo, Family Medicine, Encounter Date: 03/03/2025 Results Created Date Observation Date Name Description Value Unit Range Abnormal Flag Note LastModifiedBy Organization Detail LastModifiedTime 11/24/1911/24/2024 CBC WBC 6.9 x10 4.5-10 .5 Not Available [facility] [address], [place], [address], 11/24/2024 13:39:25 11/24/19 25 11/24/2024 CBC RBC 5.53 x10 4.30-5 .90 Not Available [facility] [address], [place], [address], 11/24/2024 13:39:25 11/24/19 25 11/24/2024 CBC HGB 17.6 g/dL 13.5-1 8.0 Not Available [facility] [address], [place], [address], 11/24/2024 13:39:25 11/24/19 25 11/24/2024 CBC HCT 51.2 % 35.0-6 0.0 Not Available [facility] [address], [place], [address], 11/24/2024 13:39:25 11/24/19 25 11/24/2024 CBC MCV 92.5 fL 80.0-9 9.9 Not Available [facility] [address], [place], [address], 11/24/2024 13:39:25 11/24/19 25 11/24/2024 CBC MCH 31.9 pg 27.0-3 2.0 Not Available [facility] [address], [place], [address], 11/24/2024 13:39:25 11/24/19 25 11/24/2024 CBC MCHC 34.4 g/dL 32.0-3 6.0 Not Available [facility] [address], [place], [address], 11/24/2024 13:39:25 11/24/19 25 11/24/2024 CBC RDW 14.1 % 11.5-1 4.5 Not Available [facility] [address], [place], [address], 11/24/2024 13:39:25 11/24/19 25 11/24/2024 CBC plt 161.7 x10 150.0- 451.0 Not Available [facility] [address], [place], [address], 11/24/2024 13:39:25 11/24/19 25 11/24/2024 CBC lymphocytes % 21.4 % 20.0-5 0.0 Not Available [facility] [address], [place], [address], 11/24/2024 13:39:25 11/24/19 25 11/24/2024 CBC granulcytes % 70.4 % 30.0-7 0.0 high Not Available [facility] [address] [facility] [address], [place], [address], 11/24/2024 13:39:25 11/24/19 25 11/24/2024 CBC monocytes % 6.6 % 2.0-16 .0 Not Available [facility] [address] [address], [place], [address], 11/24/2024 13:39:25 11/24/19 25 11/24/2024 CBC granulcytes# 4.9 x10 Not Jo Ann ilable [facility] [address] [address], [place], [address], 11/24/2024 13:39:25 11/24/19 25 11/24/2024 CBC lymphocytes # 1.5 x10 Not Available [facility] [address] [address], [place], [address], 11/24/2024 13:39:25 11/24/19 25 11/24/2024 CBC monocytes # 0.5 x10 Not Avai lable [facility] [address] [address], [place], [address], 11/24/2024 13:39:25 11/24/19 25 11/24/2024 HBA1C hemaglobin A1C 7.1 4.2-6. 5 high Not Available [facility] [address] [address], [place], [address], 11/24/2024 13:54:13 11/24/19 25 11/24/2024 CMP (MALE ) glucose 177.0 mg/dL 60.0-9 9.0 high Not Available [facility] [address] [address], [place], [address], 11/24/2024 14:21:35 11/24/19 25 11/24/2024 CMP (MALE ) BUN (blood urea nitrogen) 21.0 mg/dL 10.0-2 6.0 Not Available [facility] [address] [address], [place], [address], 11/24/2024 14:21:35 11/24/19 25 11/24/2024 CMP (MALE ) creatinine (serum) 1.3 mg/dL 0.4-1. 5 Not Available [facility] [address] [address], [place], [address], 11/24/2024 14:21:35 11/24/19 25 11/24/2024 CMP (MALE ) BUN/creatini ne ratio 16.15 ratio Not Available [facility] [address] [address], [place], [address], 11/24/2024 14:21:35 11/24/19 25 11/24/2024 CMP (MALE ) eGFR calculated 57.5 Not Available [facility] [address] [address], [place], [address], 11/24/2024 14:21:35 11/24/19 25 11/24/2024 CMP (MALE ) total protein 7.7 g/dL 6.0-8. 5 Not Available [facility] [address] [address], [place], [address], 11/24/2024 14:21:35 11/24/19 25 11/24/2024 CMP (MALE ) total bilirubin 0.9 mg/dL 0.2-1. 3 Not Available [facility] [address] [address], [place], [address], 11/24/2024 14:21:35 11/24/19 25 11/24/2024 CMP (MALE ) albumin 4.8 g/dL 3.5-5. 5 Not Available [facility] [address] [facility] [address], [place], [address], 11/24/2024 14:21:35 11/24/19 25 11/24/2024 CMP (MALE ) globulin 2.9 calc Not Available [facility] [address] [facility] [address], [place], [address], 11/24/2024 14:21:35 11/24/19 25 11/24/2024 CMP (MALE ) AST (SGOT) 31.0 U/L 0.0-46 .0 Not Available [facility] [address] [address], [place], [address], 11/24/2024 14:21:35 11/24/19 25 11/24/2024 CMP (MALE ) altv (SGPT) 30.0 U/L 13.0-6 9.0 normal Not Available [facility] [address] [facility] [address], [place], [address], 11/24/2024 14:21:35 11/24/19 25 11/24/2024 CMP (MALE ) A/G ratio 1.7 ratio Not Available [facility] [address] [address], [place], [address], 11/24/2024 14:21:35 11/24/19 25 11/24/2024 CMP (MALE ) ALP phos 104.0 U/L 30.0-1 40.0 normal Not Available [facility] [address] [facility] [address], [place], [address], 11/24/2024 14:21:35 11/24/19 25 11/24/2024 CMP (MALE ) calcium 10.1 mg/dL 8.4-10 .5 Not Available [facility] [address] [facility] [address], [place], [address], 11/24/2024 14:21:35 11/24/19 25 11/24/2024 CMP (MALE ) sodium 139.0 mmol/ L 136.0- 145.0 Not Available [facility] [address] [facility] [address], [place], [address], 11/24/2024 14:21:35 11/24/19 25 11/24/2024 CMP (MALE ) potassium 4.8 mmol/ L 3.5-5. 1 Not Available [facility] [address] [facility] [address], [place], [address], 11/24/2024 14:21:35 11/24/19 25 11/24/2024 CMP (MALE ) chloride 111.0 mmol/ L 98.0-1 10.0 abnormal Not Available [facility] [address] [facility] [address], [place], [address], 11/24/2024 14:21:35 11/24/19 25 11/24/2024 CMP (MALE ) C02 24.0 mmol/ L 22.0-3 1.0 Not Available [facility] [address] [facility] [address], [place], [address], 11/24/2024 14:21:35 11/24/19 25 11/24/2024 CMP (MALE ) anion gap 4.0 calc Not Available [facility] [address] [facility] [address], [place], [address], 11/24/2024 14:21:35 11/24/19 25 11/24/2024 CMP (MALE ) osmolality 293.9 calc Not Available [facility] [address] [facility] [address], [place], [address], 11/24/2024 14:21:35 11/24/19 25 11/24/2024 LIPID PROFI LE (MALE ) cholesterol 145.0 mg/dL 0.0-20 0.0 Not Available [facility] [address] [facility] [address], [place], [address], 11/24/2024 14:21:38 11/24/19 25 11/24/2024 LIPID PROFI LE (MALE ) trig 96.0 mg/dL 0.0-15 0.0 Not Available [address] [facility] [address], [place], [address], 11/24/2024 14:21:38 11/24/19 25 11/24/2024 LIPID PROFI LE (MALE ) HDL - direct 68.0 mg/dL >40.0 Not Available [facility] [address] [facility] [address], [place], [address], 11/24/2024 14:21:38 11/24/19 25 11/24/2024 LIPID PROFI LE (MALE ) VLDL - direct 19.2 mg/dL Not Available [address], [place], [address], 11/24/2024 14:21:38 11/24/19 25 11/24/2024 LIPID PROFI LE (MALE ) LDL - direct 57.8 mg/dL 0.0-13 0.0 Not Available [address] [address], [place], [address], 11/24/2024 14:21:38 11/24/19 25 11/25/2024 ALBUM IN, [place] M URINE W/CRE ATINI NE creatinine, random urine 151 mg/dL 20-320 normal Not Available [facility] [address] [place], [address], 11/25/2024 11:48:20 11/24/19 25 11/25/2024 ALBUM IN, [place] M URINE W/CRE ATINI NE albumin, urine 2.2 mg/dL see note: normal Refer ence Range : Refer ence Range Not estab lishe d Not Available [facility] [address] [place], [address], 11/25/2024 11:48:20 11/24/19 25 11/25/2024 ALBUM IN, RANDO M URINE W/CRE ATINI NE albumin/crea tinine ratio, random urine 15 mg/g_ creat <30 normal The ADA defin es abnor malit ies in album in excre tion as follo ws: Album inuri a Categ ory Resul t (mg/g creat inine ) Estephanie l to Mildl y incre ased <30 Moder ately incre ased 30-29 9 Sever pramod incre ased > OR = 300 The ADA recom mends that at least two of three speci mens colle cted withi n a 3-6 month perio d be abnor mal befor e consi scott g a patie nt to be withi n a diagn ostic categ ory. Not Available [facility] [address] [place], [address], 11/25/2024 11:48:20 07/08/2007/08/2025 CBC WBC 4.8 x10 4.5-10 .5 Not Available [facility] [address] [facility] [address], [place], [address], 07/08/2025 15:38:18 07/08/2007/08/2025 CBC RBC 4.61 x10 4.30-5 .90 Not Available [facility] [address] [facility] [address], [place], [address], 07/08/2025 15:38:18 07/08/20 25 07/08/2025 CBC HGB 15.3 g/dL 13.5-1 8.0 Not Available [facility] [address] [facility] [address], [place], [address], 07/08/2025 15:38:18 07/08/2007/08/2025 CBC HCT 44.8 % 35.0-6 0.0 Not Available [facility] [address], [place], [address], 07/08/2025 15:38:18 07/08/2007/08/2025 CBC MCV 97.1 fL 80.0-9 9.9 Not Available [facility] [address], [place], [address], 07/08/2025 15:38:18 07/08/2007/08/2025 CBC MCH 33.1 pg 27.0-3 2.0 high Not Available [facility] [address], [place], [address], 07/08/2025 15:38:18 07/08/2007/08/2025 CBC MCHC 34.1 g/dL 32.0-3 6.0 Not Available [facility] [address], [place], [address], 07/08/2025 15:38:18 07/08/2007/08/2025 CBC RDW 13.9 % 11.5-1 4.5 Not Available [facility] [address], [place], [address], 07/08/2025 15:38:18 07/08/2007/08/2025 CBC plt 161.5 x10 150.0- 451.0 Not Available [facility] [address], [place], [address], 07/08/2025 15:38:18 07/08/2007/08/2025 CBC lymphocytes % 24.7 % 20.0-5 0.0 Not Available [facility] [address], [place], [address], 07/08/2025 15:38:18 07/08/20 25 07/08/2025 CBC granulcytes % 63.5 % 30.0-7 0.0 Not Available [facility] [address] [facility] [address], [place], [address], 07/08/2025 15:38:18 07/08/20 25 07/08/2025 CBC monocytes % 9.1 % 2.0-16 .0 Not Available [facility] [address], [place], [address], 07/08/2025 15:38:18 07/08/20 25 07/08/2025 CBC granulcytes# 3.1 x10 Not Jo Ann ilable [facility] [address], [place], [address], 07/08/2025 15:38:18 07/08/20 25 07/08/2025 CBC lymphocytes # 1.2 x10 Not Available [facility] [address], [place], [address], 07/08/2025 15:38:18 07/08/20 25 07/08/2025 CBC monocytes # 0.4 x10 Not Avai lable [facility] [address], [place], [address], 07/08/2025 15:38:18 07/08/2007/08/2025 LIPID PROFI LE (MALE ) cholesterol 139.0 mg/dL 0.0-20 0.0 Not Available [facility] [address], [place], [address], 07/08/2025 16:43:13 07/08/20 25 07/08/2025 LIPID PROFI LE (MALE ) trig 77.0 mg/dL 0.0-15 0.0 Not Available [facility] [address] [facility] [address], [place], [address], 07/08/2025 16:43:13 07/08/20 25 07/08/2025 LIPID PROFI LE (MALE ) HDL - direct 59.0 mg/dL >40.0 Not Available [facility] [address] [facility] [address], [place], [address], 07/08/2025 16:43:13 07/08/20 25 07/08/2025 LIPID PROFI LE (MALE ) VLDL - direct 15.4 mg/dL Not Available [facility] [address] [facility] 1, [place], [address], 07/08/2025 16:43:13 07/08/20 25 07/08/2025 LIPID PROFI LE (MALE ) LDL - direct 64.6 mg/dL 0.0-13 0.0 Not Available [facility] [address] [facility] [address], [place], [address], 07/08/2025 16:43:13 07/08/2007/08/2025 HBA1C hemaglobin A1C 6.7 4.2-6. 5 high Not Available [facility] [address] [facility] 1, [place], [address], 07/08/2025 17:26:00 Result Notes None recorded. Problems Name Problem SNOMED Code Status Onset Date Resolution Date Notes Provider Name and Address Organization Details Recorded Time Bipolar disorder 80489598 Active 2022 TIERNEY granados [place] Shalonda [facility] 4 16:25:05 Obstructi ve sleep apnea syndrome 07581288 Active 2022 obstructi ve sleep apnea; C-Pap 10 cm H2O ALIREZA Worrell [facility] 4 16:26:07 Diabetes mellitus 33060535 Active 2022 [facility] 16:25:36 Diabetic periphera l neuropath y 428411169 Active 2022 [facility] 16:25:43 Attention deficit hyperacti vity disorder 670083970 Active 2022 [facility] 16:25:00 Coronary atheroscl erosis 236430812 Active 2022 [facility] 16:25:22 Chronic depressio n 112971948 Active 2022 [facility] 16:25:18 Male hypogonad ism 88181021 Active 2022 [facility] 16:26:02 Acute non-ST segment elevation myocardia l infarctio n 280165215 Active 2022 TIERNEY TEE [facility] 4 16:24:27 Rhabdomyo lysis 883756633 Active 2022 [facility] 14:12:53 Permanent cardiac pacemaker 918942090039 102 Active 2023 [facility] 16:26:15 Chronic atrial fibrillat ion 010603940 Active 2023 TIERNEY TEE [facility] 4 16:25:09 Essential hypertens ion 49992085 Active 2023 [facility] 16:25:48 Hyperlipi demia 74966877 Active 2023 TIERNEY TEE darwin [facility] 4 16:25:52 Incomplet e emptying of urinary bladder 311421774 Active 2023 TIERNEY granados [facility] 4 16:25:58 Rib pain 696876961 Active 2023 Elizabeth granados [facility] 5 14:12:53 Morbid obesity 961750176 Active 2024 Elizabeth granados [facility] 5 14:12:53 Malignant melanoma of skin of face 95097837 Active 2024 Elizabeth Waldron [facility] 5 14:12:53 Nocturia 111245742 Active 2024 Elizabeth granados [facility] 5 14:12:53 Benign prostatic hyperplas ia with outflow obstructi on 834618846 Active 2024 Cee Montalvo [address], [address] , [facility] 5 16:04:56 Problem Notes None recorded. Procedures Surgical History Date Name Laterality Status Provider Name and Address Organization Details Recorded Time 3 Colonoscopy completed TIERNEY TEE [facility] 08/21/2024 16:23:44 Pacemaker completed Sailaja Arroyo [facility] 05/04/2025 15:32:19 Back Surgery completed Sailaja Arroyo [facility] LC[facility]LC[facility] 05/04/2025 15:32:31 procedure on head completed Sailaja Arroyo [facility], [place] 05/04/2025 15:33:03 Cataract Surgery completed Sailaja Arroyo [facility] [place] 05/04/2025 15:33:34 Imaging Results None recorded. Procedure Notes None recorded. Medical Equipment None Reported. Allergies Allergen ID Allergen Name Allergen Category Reaction Reaction Severity Criticality Documentation Date Start Date Code Code System Note Provider Name and Address Organization Details Recorded Time 22680 griseoful [facility] medicatio n Not available Not available Not available 10/14/20252024 5021 RxNorm Not Available [facility] [employer] [facility] 12:06:33 30973 fulvestra nt medicatio n Not available Not available Not available 10/14/2025 60097 7 RxNorm Not Available [employer] [facility] 12:07:11 Medications Name Sig Start Date Stop Date Status Note LastModified by Organization Details LastModified Time atorvasta tin 40 mg tablet TAKE 1 TABLET DAILY active Not Available Not Available No t Available doxycycli ne hyclate 100 mg capsule Take 1 capsule twice a day by oral route as directed for 10 days. 05/21 completed Not Available Not Available Not Available methylphe nidate 10 mg tablet Take 2 tablets twice a day by oral route. 2024 active Not Available Not Available Not Avai lable hydrocodo ne 5 mg-acetam inophen 325 mg tablet Take 1 tablet twice a day by oral route as needed, for only for severe pain. 2024 active Not Available Not Available Not Avai lable methylphe nidate 20 mg tablet Take 1 tablet twice a day by oral route for 30 days. 2024 active Not Available Not Available Not Avai lable prednison e 20 mg tablet Take 1 tablet every day by oral route in the morning for 7 days. 05/18 completed Not Available Not Available Not Available gabapenti n 400 mg capsule TAKE 1 CAPSULE 3 TIMES A DAY active Not Available Not Available No t Available metronida zole 250 mg tablet TAKE 1 TABLET BY MOUTH THREE TIMES A DAY TILL FINISHED 02/25 completed Not Available Not Available Not Available amlodipin e 2.5 mg tablet TAKE 1 TABLET DAILY 07/08 completed Not Available Not Available Not Available amlodipin e 5 mg tablet 07/01 completed Not Available Not Available Not Available divalproe x 500 mg tablet,de layed release 07/01 completed Not Available Not Available Not Available tolterodi ne 2 mg tablet 02/25 completed Not Available Not Available Not Available tamsulosi n 0.4 mg capsule 07/08 completed Not Available Not Available Not Available amlodipin e 10 mg tablet TAKE 1 TABLET DAILY (DOSE INCREASE D) active Not Available Not Available No t Available hydralazi ne 100 mg tablet TAKE 1 TABLET 3 TIMES A DAY active Not Available Not Available No t Available divalproe x ER 500 mg tablet,ex tended release 24 hr TAKE 2 TABLETS AT BEDTIME active Not Available Not Available No t Available bupropion HCl 75 mg tablet TAKE 2 TABLETS EVERY MORNING, 1 TABLET AT NOON AND 2 TABLETS AT BEDTIME active Not Available Not Available No t Available nitroglyc mahi 0.4 mg sublingua l tablet PLACE 1 TABLET UNDER TONGUE EVERY 5 MINS, UP TO 3 DOSES NEEDED FOR CHEST PAIN active Not Available Not Available No t Available gabapenti n 300 mg capsule Take 1 capsule 3 times a day by oral route. 07/01 completed Not Available Not Available Not Available amoxicill in 250 mg capsule TAKE 1 CAPSULE BY MOUTH THREE TIMES A DAY 08/14 completed Not Available Not Available Not Available hydralazi ne 50 mg tablet 07/01 completed Not Available Not Available Not Available methylpre dnisolone 4 mg tablets in a dose pack TAKE 6 TABLETS ON DAY 1 DIRECTED ON PACKAGE AND DECREASE BY 1 TAB EACH DAY FOR A TOTAL OF 6 DAYS active Not Available Not Available No t Available doxycycli ne hyclate 100 mg tablet Take 1 tablet twice a day by oral route for 10 days. 08/14 completed Not Available Not Available Not Available tobramyci n 0.3 %-dexamet hasone 0.1 % eye drops,timothy pension APPLY ONE DROP TO EACH EYE, UP TO FOUR TIMES A DAY. (DO NOT USE CONTINUO USLY.) 07/01 completed Not Available Not Available Not Available olmesarta n 40 mg tablet Take 1 tablet every day by oral route for 90 days. 2024 active Not Available Not Available Not Avai lable metformin ER 750 mg tablet,ex tended release 24 hr TAKE 1 TABLET TWICE A DAY active Not Available Not Available No t Available alfuzosin ER 10 mg tablet,ex tended release 24 hr Take 1 tablet every day by oral route. active Not Available Not Available No t Available Depakote two times daily 02/25 completed DM/sd; Recorded 11/09/19 3:49PM by Cee Montalvo DO, Annotati on/Adden dum; Mail Order Quantity : 200 Tablet; Refill Quantity : 0; Not Available Not Available Not Available vitamin B complex daily 06/19 completed 0; Recorded 11/09/19 10:59AM by Denise Odell, Office Visit; Not Available Not Available Not Available Lipitor daily 06/19 completed 0; Recorded 11/09/19 10:59AM by Denise Odell, Office Visit; Not Available Not Available Not Available folic acid active Not Available Not Available Not Available hydralazi ne two times daily 06/19 completed DM/sd; Recorded 08/01/20 3:02PM by Angelito Chavezic al Summary; Refill Quantity : 180; Tablet; Not Available Not Available Not Available Multivita mins daily 06/19 completed 0; Recorded 11/09/19 10:59AM by Denise Odell, Office Visit; Not Available Not Available Not Available metformin twice a day 06/19 completed Recorded 11/09/19 23 3:49PM by Cee Montalvo DO, Annotati on/Adden dum; Mail Order Quantity : 180 Tablet; Mail Order Days: 90 Days; Refill Quantity : 200; Tablet; Not Available Not Available Not Available bupropion HCl 2 tabs in AM, 1 tab at noon and 2 tab at bed 06/19 completed Recorded 11/09/19 23 3:49PM by Cee Montalvo DO, Annotati on/Addbridgett dum; Mail Order Quantity : 450 Tablet; Refill Quantity : 0; Not Available Not Available Not Available AndroGel apply to the skin daily 06/19 completed 35921; Recorded 09/19/20 22 2:23PM by Joy Miller (Monica [email or web address] through Cee Montalvo DO), Office Visit; Mail Order Quantity : 3 Each; Mail Order Days: 90 Days; Refill Quantity : 9; Each; Not Available Not Available Not Available Divalproe x Sodium (Migraine ) at bedtime 06/19 completed DM/sd; Recorded 11/09/19 3:49PM by Cee Montalvo DO, Yoli on/Adden dum; Mail Order Quantity : 180 Tablet; Mail Order Days: 90 Days; Refill Quantity : 180; Tablet; Not Available Not Available Not Available Benicar daily 06/19 completed Recorded 11/09/19 3:49PM by Cee Montalvo DO, Annotati on/Adden dum; Mail Order Quantity : 30 Tablet; Refill Quantity : 90; Tablet; Not Available Not Available Not Available Multivita min 50 Plus 06/19 completed Not Available Not Available Not Available diclofena c 1 % topical gel APPLY 2 GRAMS TO THE AFFECTED AREA(S) BY TOPICAL ROUTE 4 TIMES PER DAY NEEDED active Not Available Not Available No t Available amlodipin e besylate (bulk) daily 06/19 completed Recorded 11/09/19 3:49PM by Cee Montalvo DO, Annotati on/Adden dum; Mail Order Quantity : 90 Tablet; Mail Order Days: 90 Days; Refill Quantity : 90; Tablet; Not Available Not Available Not Available testoster one 20.25 mg/1.25 gram per pump act.(1.62 %) transderm al gel 07/08 completed Not Available Not Available Not Available Eliquis 5 mg tablet TAKE 1 TABLET TWICE A DAY active Not Available Not Available No t Available Eliquis daily 06/19 completed Recorded 11/09/19 3:46PM by Cee Montalvo DO, Office Visit; Not Available Not Available Not Available Baby Vitamin D3 06/19 completed Not Available Not Available Not Available Glucosami ne Chondroit in two times daily 06/19 completed 0; Recorded 11/09/19 10:59AM by Denise Odell, Office Visit; Not Available Not Available Not Available Gemtesa 75 mg tablet Take 1 tablet every day by oral route. active Not Available Not Available No t Available Vitals Date Recorded Body height Body mass index (BMI) Body weight Oxygen saturation Heart rate Respiratory rate Systolic And Diastolic Provider Name and Address Organization Details Last Updated DateTime 5 180.34 cm 38.2 kg/m2 618351. 31 g 96 % 89 /min 18 /min 136/80 mm[Hg] [facility] 5 12:41:16 Date Recorded Body height Body mass index (BMI) Body weight Oxygen saturation Heart rate Respiratory rate Systolic And Diastolic Provider Name and Address Organization Details Last Updated DateTime 5 180.34 cm 38.8 kg/m2 661694. 73 g 95 % 87 /min 20 /min 128/82 mm[Hg] [facility] 5 14:18:01 Date Recorded Body height Body mass index (BMI) Body weight Oxygen saturation Heart rate Respiratory rate Body temperature Systolic And Diastolic Provider Name and Address Organization Details Last Updated DateTime 5 180.34 cm 38.2 kg/m2 399928. 31 g 96 % 80 /min 16 /min 98.2 [degF] 130/80 mm[Hg] [place] Dina [facility] 5 15:37:31 Date Recorded Body height Body mass index (BMI) Body weight Heart rate Oxygen saturation Respiratory rate Systolic And Diastolic Provider Name and Address Organization Details Last Updated DateTime 5 180.34 cm 38.2 kg/m2 042771. 71 g 92 /min 97 % 20 /min 128/72 mm[Hg] [facility] 5 14:06:02 Date Recorded Body height Body mass index (BMI) Body weight Oxygen saturation Heart rate Respiratory rate Systolic And Diastolic Provider Name and Address Organization Details Last Updated DateTime 5 180.34 cm 38.1 kg/m2 616578. 72 g 96 % 91 /min 18 /min 124/62 mm[Hg] DENISE ODELL [facility] 15:38:25 Social History Question Answer Notes LastModified by Organizat ion Details LastModified Time Tobacco Smoking Status Never Smoker CAMMY MAHONEY, [facility] [address] [place], [address], [facility] 08/21/2024 15:50:38 Are You Blind Or Do You Have Difficulty Seeing? No Information not available 08/22/2024 Are You Deaf Or Do You Have Serious Difficulty Hearing? No Information not available 08/22/2024 What Is The Highest Grade Or Level Of School You Have Completed Or The Highest Degree You Have Received? [id number] Information not available 08/22/2024 Which Of Your Hands Is Dominant? Right Information not available 08/22/2024 What Was The Date Of Your Most Recent Tobacco Screening? 05/04/2025 [email or web address] Information not available 05/04/2025 Has Tobacco Cessation Counseling Been Provided? Yes Information not available 08/22/2024 On What Date Was Tobacco Cessation Counseling Provided? 08/21/2024 Information not available 08/22/2024 Have You Recently Traveled Abroad? No Information not available 08/22/2024 Do You Have Difficulty Walking Or Climbing Stairs? No Information not available 08/22/2024 Are You Currently In School? No Information not available 08/22/2024 Sex: Unknown Functional Status Question Answer Note LastModified by Organizat ion Details LastModified Time Do you use any illicit or recreational drugs? No [email or web address] Information not available 03/13/2023 Do you or have you ever used any other forms of tobacco or nicotine? No Information not available 03/13/2023 What is your level of alcohol consumption? None Information not available 03/13/2023 Are you currently employed? No Information not available 08/22/2024 Do you have transportation difficulties? No Information not available 08/22/2024 Are you able to walk independently without assistance or assistive devices? [email or web address] Information not available 08/22/2024 Do you have difficulty doing errands alone? No Information not available 08/22/2024 Are you able to care for yourself independently? Yes Information not available 08/22/2024 Do you have difficulty dressing, bathing, grooming, or toileting? No Information not available 08/22/2024 Do you or have you ever used any nicotine-free cigarettes, vape, or chewing tobacco? No [email or web address] Information not available 08/21/2024 Mental Status Question Answer Note LastModified by Organization D etails LastModified Time Do you have difficulty concentrating, remembering or making decisions? No Information no t available 08/22/2024 Family History Nothing Reported. Medical History No medical history recorded. Immunizations Vaccine Type Date Status Note Provider Nam e and Address Organization Details Recorded Time Pneumococcal conjugate PCV 13 8 completed Mecca granados [facility] 07/24/2024 11:42:31 Tdap 8 completed Mecca granados [facility] 07/24/2024 11:42:31 Influenza, split virus, trivalent, preservative 8 completed Not Available [facility] 06/02/2023 02:32:11 Past Encounters Encounter ID Performer Location Encounter Start Date Encounter Closed Date Diagnosis/Indication Diagnosis SNOMED-CT Code Diagnosis ICD10 Code Diagnosis IMO Codes Diagnosis Note [id number] Cee Montalvo DO [facility] ([facility]) [address] [place] [address] [phone] 5 03/13/2023 11:05:04 03/13/2023 18:27:20 Diabetes mellitus 36097348 E11.9 E11.69 E11.59 E11.42 I reviewed recent labs with pt. A1C is improved. counseled pt to continue with current meds, continue with diet and daily exercise. will repeat labs in about 4mts with appt after. Diabetic p eripheral neuropathy 576100618 E11.40 will start back on gabapentin . counseled Attention deficit hyperactivity disorder 281263310 F90.9 continue methylphen idate. pt has had improved focus and able to function better at home and socially. [id number] Cee Montalvo DO [facility] ([facility]) [address] [place] [address] [id number] 5 04/18/2023 10:47:12 04/30/2023 16:34:18 Diabetic peripheral neuropathy 038023304 E11.40 progressin g, .continue gabapentin and diabetes management . offered NCS. he declines at this time. Diabetes mellitus 826756 E11.69 E11.59 E11.42 I reviewed recent labs with pt. A1C is improved. counseled pt to continue with current meds, continue with diet and daily exercise. will repeat labs next appt. Coronary atherosclerosis 314555588 I25.10 per [place] stress test 03/2023. followed by Cardiology , Dr. Chiu.I counseled pt on need to minimize risk: control diabetes, statins, control BP. exercise, weight loss, diet. [id number] Cee Montalvo DO [facility] ([facility]) [address] [place] [address] [phone] 5 06/19/2023 13:44:40 06/19/2023 17:30:59 Diabetes mellitus 85065930 E11.69 E11.59 E11.42 counseled on exercise and monitoring glucose. Attention deficit hyperactivity disorder 538141675 F90.9 continue methylphen idate. Chronic depression 11621 0009 F32.A worsening due to worry and negativity surroundin g the possibilit y of him having 2 AMIs.couns eled pt that he needs to change his attitude. [id number] Cee Montalvo DO [facility] ([facility]) [address] [place] [address] [id number] 5 08/14/2023 13:41:08 08/16/2023 09:35:52 Attention deficit hyperactivity disorder 675218425 F90.9 continue methylphen idate. Coronary atherosclerosis 416642441 I25.10 per [place] stress test 03/2023. followed by Cardiology , Dr. Chiu.I counseled pt on need to minimize risk: control diabetes, statins, control BP. exercise, weight loss, diet. Diabetes mellitus 665191 09 E11.69 E11.59 E11.42 counseled on exercise and monitoring glucose. Male hypogonadism 421766 06 E29.1 Acute inju ry of kidney 2141272359 5420361 N17.9 Acute non- ST segment elevation myocardial infarction 177162444 I21.4 Rhabdomyolysis 267079737 M62.82 [id number] Cee Montalvo DO [facility] ([facility]) [address] [place] [address] [id number] 09/06/2023 12:12:28 09/06/2023 18:41:31 Acute non-ST segment elevation myocardial infarction 895504279 I21.4 Per records from [facility]. Again recommend angiogram for further evaluation and confirmati on. Patient has appointmen t with Dr. Chiu, cardiology on 09/17/2023 . Acute inju ry of kidney 4724184831 5233787 N17.9 Again, concern for rhabdomyol ysis 1 month ago. Last creatinine was 1.57 with GFR 47 on 08/14/2023 . Repeat labs today counseled patient on hydration and diabetes care. Diabetes mellitus 594105 09 E11.69 E11.59 E11.42 counseled on exercise and monitoring glucose. [id number] Cee Montalvo DO [facility] ([facility]) [address] [place] [address] [id number] 5 11/20/2023 11:40:37 11/20/2023 18:02:40 Diabetes mellitus 98615625 E11.69 E11.59 E11.42 counseled on exercise and monitoring glucose.- A1c today. Counseled on monitoring feet regularly, return for shoe fitting, as DM shoes are supposed to prevent foot sores. Chronic depression 25187 0009 F32.A worsening due to worry and negativity surroundin g the possibilit y of him having 2 AMIs.couns eled pt that he needs to change his attitude.- refill Buproprion , taking 2 each am, 1 at noon, 2 each evening. Acute non- ST segment elevation myocardial infarction 297610941 I21.4 Per records from [facility]. Again recommend angiogram for further evaluation and confirmati on. Patient has appointmen t with Dr. Chiu, cardiology on 09/17/2023 .11/20/23- Reviewed and discussed recent Echo, f/u with Dr. Chiu as planned mid Dec. Synovial cyst of knee 0543603 M71.21 Counseled topical, consider Ortho referral if not improving. [facility] pharmacy. Attention deficit hyperactivity disorder 070056117 F90.9 Having some issues with Ritalin prescripti on with mail order pharmacy. Pt will speak with local pharmacy to see if there will be an issue with sending it there instead and let us know so we can send it. Diabetic p eripheral neuropathy 967908955 E11.40 progressin g, .continue gabapentin and diabetes management . offered NCS. he declines at this time.Couns eled likely causing his unsteady gait, will consider PT. Unsteady when walking 22 578884 R26.89 Unchanged, discussed PT, will consider in the future. [id number] Cee Montalvo DO [facility] ([facility]) [address] [place] [address] [phone] 5 02/26/2024 11:45:12 02/26/2024 16:44:49 Diabetes mellitus 57784031 E11.69 E11.59 E11.42 counseled on exercise and monitoring glucose.- A1c today. Counseled on monitoring feet regularly, return for shoe fitting, as DM shoes are supposed to prevent foot sores. Chronic depression 13104 0009 F32.A worsening due to worry and negativity surroundin g the possibilit y of him having 2 AMIs.couns eled pt that he needs to change his attitude.- refill Buproprion , taking 2 each am, 1 at noon, 2 each evening. Attention deficit hyperactivity disorder 659810496 F90.9 Having some issues with Ritalin prescripti on with mail order pharmacy. Pt will speak with local pharmacy to see if there will be an issue with sending it there instead and let us know so we can send it. Diabetic p eripheral neuropathy 782346386 E11.40 progressin g, .continue gabapentin and diabetes management . offered NCS. he declines at this time.Couns eled likely causing his unsteady gait, will consider PT. Acute non- ST segment elevation myocardial infarction 456209934 I21.4 Per records from [facility]. Again recommend angiogram for further evaluation and confirmati on. Patient has appointmen t with Dr. Chiu, cardiology on 09/17/2023 .11/20/23- Reviewed and discussed recent Echo, f/u with Dr. Chiu as planned mid Dec. Coronary atherosclerosis 857894719 I25.10 per NM stress test 03/2023. followed by Cardiology , Dr. Chiu.I counseled pt on need to minimize risk: control diabetes, statins, control BP. exercise, weight loss, diet. Essential hypertension 20441388 I10 Continue Amlodipine , Hydralazin e, Olmesartan . Obstructiv e sleep apnea syndrome 08492103 G47.33 Continue CPAP, tolerating well. Chronic at rial fibrillation 717735574 I48.20 Continue Eliquis. Permanent cardiac pacemaker 4638501026 58020 Z95.0 Rhabdomyolysis 014232439 M62.82 History of. Will monitor renal function every 6-12 months. Hyperlipidemia 53638714 E78.5 Continue Atorvastat in 40mg. Malignant melanoma of skin of face 71595773 D03.39 H/o, forehead and face, continues with annual Derm eval. Bipolar disorder 3879537 4 F31.9 Continue Depakote. Nocturia 602512919 R35.1 Consider Finasterid e, Tamsulosin hasn't seemed to help much. [id number] Cee Montalvo DO [facility] ([facility]) [address] [place] [address] 07/01/2024 13:52:34 07/01/2024 17:07:20 Diabetes mellitus 27379128 E11.69 E11.59 E11.42 counseled on exercise and monitoring glucose.- Reviewed and discussed lab. Continue Metformin. 11/20/23- A1c today. Counseled on monitoring feet regularly, return for shoe fitting, as DM shoes are supposed to prevent foot sores. Chronic depression 34355 0009 F32.A 07/01/24- mood is stable, continue Buproprion . Attention deficit hyperactivity disorder 288466181 F90.9 Continue Methylphen idate, will refill. Coronary atherosclerosis 293104883 I25.10 per NM stress test 03/2023. followed by Cardiology , Dr. Chiu.I counseled pt on need to minimize risk: control diabetes, statins, control BP. exercise, weight loss, diet. Essential hypertension 74712933 I10 Continue Amlodipine , Hydralazin e, Olmesartan . Obstructiv e sleep apnea syndrome 98291949 G47.33 8/27/24- Pt is needing new machine as old one is wearing out. last sleep study 2017. his current setting is 10cm H20. He is compliant wearing more than 5 hrs nightly for every night the last 90+nights. this does help his daytime fatigue and feels more rested when cpap is working properly. Chronic at rial fibrillation 025568876 I48.20 Continue Eliquis. Hyperlipidemia 87815554 E78.5 Continue Atorvastat in 40mg. Bipolar disorder 0432432 4 F31.9 Continue Depakote. Synovial c yst of right knee 3746922031 62500 M71.21 07/01/24- counseled if effecting his ability to stand, walk, or bear weight surgery may be considered , o/w no interventi on usually performed. Consider Orthopedic referral if this continues to bother him or is worsening his walking, movement. Incomplete emptying of urinary bladder 322978033 R39.14 07/01/24- frequent nocturia, incomplete emptying of bladder, this is keeping him awake at night. He has seen Dr. Jeffery in the past before he retired, tried Tamsulosin without improvemen t. Will refer to Urology again, Dr. Garcia in [place]. [id number] VERONICA SCOTT [facility] ([facility]) [address] [place] [address] [phone] 5 08/21/2024 14:59:30 08/21/2024 16:42:10 Adult health examination 951798346 Z00.00 No vaccines. Long-term current use of anticoagulant 263676617 Z79.01 Diabetic p eripheral neuropathy 472333676 E11.40 [id number] VERONICA SOTO [facility] ([facility]) [address] [place] [address] [phone] 5 09/13/2024 14:20:44 09/13/2024 15:49:56 Abdominal pain 63565426 R10.[address] Montalvo next week for evaluation . Discussed with patient and possible need for imaging. [id number] Cee Montalvo DO [facility] ([facility]) [address] [place] [address] [phone] 5 09/17/2024 15:50:40 10/15/2024 08:17:04 Obstructive sleep apnea syndrome 81810669 G47.33 11:13:24: I reviewed home sleep study done on 08/26/24 which confirmed continued severe sleep apnea with no nocturnal hypoxemia with Auto titrating cpap settings recommende d at [id number]. I counseled on sleep hygeine, no etoh. weight loss. 07/01/24- Pt is needing new machine as old one is wearing out. last sleep study 2016. his current setting is 10cm H20. He is compliant wearing more than 5 hrs nightly for every night the last 90+nights. this does help his daytime fatigue and feels more rested when cpap is working properly. Rib pain 950204413 R07.8 1 contusion, expect slow improvemen t in pain. counseled on need for deep breathing BID. Return to office with no improvemen t or any problems. Go to ER with severe worsening or severe problems. Abdominal pain 27042608 R10.9 09/17/24- Counseled US tomorrow, will receive a call with appt time. [id number] Cee Montalvo DO [facility] ([facility]) [address] [place] [address] [phone] 5 09/18/2024 14:31:56 09/22/2024 10:45:08 [id number] Cee Montalvo DO [facility] ([facility]) [address] [place] [address] [phone] 5 11/24/2024 12:04:33 11/25/2024 11:22:06 Diabetes mellitus 87583019 E11.69 E11.59 E11.42 I reviewed most recent labs with pt as per above. We reconciled medication s. We discussed diet, exercise, weight management . We discussed routine eye care and foot care. Pt to monitor glucose regularly. continue current medication s: metforminr epeat labs: today. Chronic depression 93498 0009 F32.A mood is stable, continue Buproprion . Attention deficit hyperactivity disorder 368031577 F90.9 stable on meds. Continue Methylphen idate, will refill. Diabetic p eripheral neuropathy 052541452 E11.40 progressin g, .continue gabapentin and diabetes management . Acute non- ST segment elevation myocardial infarction 831636933 I21.4 11/2023: s/p stenting 11/2023. stable. continue care with cardiology . continue ASA. Coronary atherosclerosis 511627777 I25.10 per [place] stress test 03/2023. and ischemic [place] 11/2023. continue care with Dr. Chiu. Essential hypertension 28128520 I10 Continue Amlodipine , Hydralazin e, Olmesartan . Obstructiv e sleep apnea syndrome 75877775 G47.33 Pt is compliant with CPAP, wearing more than 6hrs/night and missing less than 1 night/90da ys. I counseled on NAILA, CPAPs, and sleep hygeine. 07/01/24- Pt is needing new machine as old one is wearing out. last sleep study 2016. his current setting is 10cm H20. He is compliant wearing more than 5 hrs nightly for every night the last 90+nights. this does help his daytime fatigue and feels more rested when cpap is working properly. Chronic at rial fibrillation 872706754 I48.20 Continue Eliquis. Permanent cardiac pacemaker 0161343218 07521 Z95.0 stable. continue care with cardiology Rhabdomyolysis 705720496 M62.82 History of. Will monitor renal function every 6-12 months. Hyperlipidemia 19510581 E78.5 Continue Atorvastat in 40mg. Malignant melanoma of skin of face 86458498 D03.39 H/o, forehead and face, continues with annual Derm eval. Bipolar disorder 8716288 4 F31.9 stable. continue depakote, wellbutrin . Nocturia 963923321 R35.1 we referred pt to [facility], they recommend cystoscopy , but he is considerin g if he wants to do this. He had cystoscopy and was on flomax in the past with Dr. Jeffery. He will continue care with them. Morbid obesity 581058212 E66.01 I counseled pt on obesity. We discussed risks and ways to loose weight. Pt will work on diet, exercise. [id number] Cee Montalvo DO [facility] ([facility]) [address] [place] [address] [phone] 5 03/03/2025 13:50:15 03/07/2025 23:06:18 Attention deficit hyperactivity disorder 634723723 F90.9 stable on meds. Continue Methylphen idate, will refill. Diabetes mellitus 551190 09 E11.69 E11.59 E11.42 I reviewed most recent labs with pt as per above. We reconciled medication s. We discussed diet, exercise, weight management . We discussed routine eye care and foot care. Pt to monitor glucose regularly. continue current medication s: metforminr epeat labs: today. Benign pro static hyperplasia with outflow obstruction 440858707 N40.1 R33.8 [id number] 03/03/25: Seen by Dr. Garcia again, stopped the androgel and started Alfuzosin due to worsening BPH. considerin g surgical options. pt would like 2nd opinion. referred.- frequent nocturia, incomplete emptying of bladder, this is keeping him awake at night. He has seen Dr. Jeffery in the past before he retired, tried Tamsulosin without improvemen t. Will refer to Urology again, Dr. Garcia in [place]. [id number] Cee Montalvo DO [facility] ([facility]) [address] [place] [address] [phone] 5 05/04/2025 15:26:53 05/04/2025 16:22:23 Infectious disease 17312123 A93.8 46766 with skin reaction and ecchymosis from tick bite on left foot. will start steroid and doxycyclin e. monitor for worsening s/s. ok to continue eliquis for now. [id number] Cee Montalvo DO [facility] ([facility]) [address] [place] [address] [phone] 07/08/2025 13:51:48 07/09/2025 14:07:50 Attention deficit hyperactivity disorder 152048343 F90.9 stable on meds. Continue Methylphen idate, will refill. Bipolar disorder 0503100 4 F31.9 stable. continue depakote, wellbutrin . Diabetes mellitus 671264 E11.69 E11.59 E11.42 I reviewed most recent labs with pt as per above. We reconciled medication s. We discussed diet, exercise, weight management . We discussed routine eye care and foot care. Pt to monitor glucose regularly. continue current medication s: metforminr epeat labs: today. Chronic depression [id number] F32.A 07/08/25: Deteriorat ing with worsening health and cardiac issues he is having right now. Counseled continue Bupropion, Divalproex , consider Rexulti. Counseled on diagnosis, treatment options including medication s and possible side effects. [id number] Cee Montalvo DO [facility] ([facility]) [address] [place] [address] 07/22/2025 14:32:45 07/28/2025 17:11:19 Derangement of meniscus of right knee joint [id number] M23.306 [id number] 07/22/25: Counseled we need to obtain MRI, pt with pacer, we have to make sure we use the right MRI machine, likely in [facility]. Pt concerned about anxiety prior to going into MRI.Pacer placed in 2020: Device: Aspinwall XR MRI [id number] al number: [id number] Health Concerns Section Related Observation LastModified by Organization Detai ls LastModified Time None Recorded Concern Status LastModified by Organization Details LastModified Time None Recorded Advance Directives Directive None Recorded Payers Insurance Date Sequence Insurance Name Policy Number Policy Best Covered Member ID Best Member ID Guarantor Name 07/28/2025 1 [employer] (MEDICARE REPLACEMENT/ ADVANTAGE - PPO) [id number] Kinsey Downing [id number] Kinsey Downing 07/08/2025 1 [employer] (PPO) [id number] Kinsey Downing [id number] Kinsey Downing Notes Date Note Type Note Provider Name and Address Organization Details Recorded Time 11/24/2024 text/html ROS as noted in the HPI Pt presents for recheck, chronic illness DM, urinary symptoms, depression He is feeling better overallHis new cpap machine is working well but still having the increased frequent urinationusing every night. has not missed a single night, using/sleeping at least 6 hrs/night. AHI less than 5 every night. No recent ER visits or hospitalizations He was instructed to contact his new pharmacy re refills and call us back to let us know which meds he needs sent in Cee Montalvo DO [address] [place] [address], [phone], [place] [facility] 11/24/2024 13:14:18 03/03/2025 text/html ROS as noted in the HPI Pt presents for recheck, 3 months for DM2, CAD, and PBH with hypogonadism. He saw Dr. Garcia on 02/16/25 and he was to stop the androgel and to start on alfuzosinHe states that the exam was very painful and he would prefer to see a different urologist and wants to know if he could see another one [place] at a different clinic. He reports Dr. Garcia offered 3 or 4 different surgical options if the alfuzosin does not work. Pt is not interested in any of the surgical options. he continues his BP meds.Diabetes: Pt continues with same diabetes meds, tolerating well. Not Checking glucose at home.Pt denies any new foot problems or visual changes. Cee Montalvo DO [address] [place] [address], [phone], [facility] 03/05/2025 16:05:06 05/04/2025 text/html Joint PainReport ed by Patient walk in patientpatient is here today for swelling and bruising on his left foot that he saw before bed last night, patient had a tick on his left foot that his pulled off last night. no fevers or chills. no CP or SOB. no new body aches. Cee Montalvo DO [address] [place] [address], [phone], [facility] 05/04/2025 16:12:31 07/08/2025 text/html ROS as noted in the HPI Pt presents for recheck 4 month DM, ADHD, CAD. He seen Dr. Chiu yesterday and has appt tomorrow am for ECHOHe had labs yesterday at [facility] He admits more depression sx d/t deteriorating health.Taking Divalproex and Bupropion. He is out of Methylphenidate, refill has been sent to [facility]. He does not sleep good d/t urinary frequency at night. He thinks this is d/t the amount of fluids he is taking in. A1c 7.1 on 11/24/24.He admits he hasn't been checking his glucose each am.Continues Metformin, tolerating well.No new feet or vision problems. No longer using Testosterone, feels better about this. He report using his cpap and avg 2 hrs per night before he has to get up to urinate and this occurs at least twice a night He reports CP today, has taken Nitro x2 with improvement, also took Nitro x1 yesterday for CP.He describes the pain radiating under the left arm and still sore to left axilla. Cee MontalvoDO [address] [place] [address], [phone], [facility] 07/08/2025 14:55:25 07/22/2025 text/html ROS as noted in the HPI Patient presents visit today for ER f/u, was seen on 07/20/25 for fall Pt states he was trying to get out of bed when he fell d/t right leg pain. He is unsure how he landed.ER performed US, no Michaels's Cyst.Dc'd home.Clinical Impression:Pain and swelling of right kneeCondition: StablePrescriptions:Ne whydrocodone-acetamino phen 5-325 mg tablet1 tab PO Q6H PRN (Reason: pain) Qty: 14 0RFmethylprednisolone [Medrol (Shaun)] 4 mg tablets,dose packSee Rx Instructions .ROUTE .COMPLEX Qty: 21 0RFRx Instructions:orally per package directions He has since been using walker, taking OTC medication and Hydrocodone. He continues with RLE pain, radiating to the thigh with some swelling.Pain worse with movement, weight bearing.Pain present in the posterior leg, feels like there is no muscle strength or control at times, assumes this is d/t the way he landed. No prior MRI of the right knee. Pacer placed 02/03/21:Device: Teez.mobi XR MRI [id number] number: [id number] Cee MontalvoDO [address] [place] [address], [phone], [facility] 07/28/2025 10:28:49
--- NOTE | 2025-10-31 18:01 | XRR_ITS ---
PROCEDURE INFORMATION: Exam: XR Chest Exam date and time: 10/31/2025 6:03 PM Age: 75 years old Clinical indication: Cough; Additional info: Dyspnea; Cough TECHNIQUE: Imaging protocol: Radiologic exam of the chest. Views: 1 view. COMPARISON: CR XR chest 2V insp/exp [id number] 11/07/2021 12:07 PM FINDINGS: Tubes, catheters and devices: Right chest pacemaker. Lungs: No consolidation. Pleural spaces: No pleural effusion. No pneumothorax. Heart/Mediastinum: Heart size is within normal limits. Bones/joints: Unremarkable. XR/XR chest 1V portable [id number] IMPRESSION: No acute pulmonary disease.
[2025-10-31 18:25] LABS: Hematocrit 45.5 % (37-53); Hemoglobin 15.30 g/dL (11.27-16.99); Mean Corpuscular HGB Conc 33.6 g/dL (30-55); Mean Corpuscular Hemoglobin 32.4 pg (27-33); Mean Corpuscular Volume 96.4 fl (82-101); Nucleated Red Blood Cells % 0 %; Platelet Count 139 10^3/cmm (157-399); Red Blood Count 4.72 10^6/uL (3.85-5.65); White Blood Count 10.60 10^3/uL (3.29-11.43)
[2025-10-31 18:42] LABS: Alanine Aminotransferase 24 U/L (0-41); Albumin Level 4.0 g/dL (3.5-5.2); Alkaline Phosphatase 93 U/L (40-130); Anion Gap 18.0 (5-19); Aspartate Amino Transferase 35 U/L (0-40); Blood Urea Nitrogen 17 mg/dL (8-23); Calcium 9.3 mg/dL (8.5-10.5); Carbon Dioxide 21 mmol/L (22-29); Chloride 101 mmol/L (98-107); Globulin 2.2 g/dL (1.3-4.6); Glucose 170 mg/dL (65-115); Osmolality Calculated 288 mOsm/kg (285-295); Potassium 4.0 mmol/L (3.5-5.1); Sodium 136 mmol/L (136-145); Total Protein 6.2 g/dL (6.6-8.7)
--- NOTE | 2025-10-31 19:08 | W.ED.WEAKNES ---
HPI - Weakness General: Chief complaint: Weakness Stated complaint: weakness History of Present Illness: 75-year-old male presents emergency room with his accompanying him who also provides history has been progressively weak over the last several months for the last few days he suddenly is unable to walk even with the assistance of his walker that he usually uses he is not able to get himself to or from the bathroom. No recent falls or trauma he has no history of any cancer. He has not had any fecal incontinence continence or urinary retention. No previous back surgeries. Patient recently had coronary angiogram done at our facility on 10/21/2025 no significant findings or interventions done at that time. Associated symptoms: Denies chest pain, chills, dysuria or fever(s) Related Data Home Medications ?Medication ?Instructions ?Recorded ?Confirmed acetaminophen 500 mg tablet 500 mg PO Q6H PRN Pain 02/02/21 11/01/25 (Tylenol Extra Strength) bupropion HCl 75 mg tablet See Rx Instructions .Route .COMPLEX 02/02/21 11/01/25 methylphenidate HCl 20 mg tablet 20 mg PO BID 02/02/21 11/01/25 (Ritalin) multivitamin 1 tab PO DAILY 02/02/21 11/01/25 olmesartan 40 mg tablet (Benicar) 40 mg PO QAM 02/02/21 11/01/25 vitamin B complex 1 tab PO DAILY 02/02/21 11/01/25 divalproex 500 mg tablet,extended 1,000 mg PO BEDTIME 06/14/21 11/01/25 release 24 hr cholecalciferol (vitamin D3) 25 25 mcg PO DAILY 11/07/21 11/01/25 mcg (1,000 unit) capsule amlodipine 10 mg tablet 10 mg PO DAILY 10/20/25 11/01/25 gabapentin 400 mg capsule 400 mg PO TID 11/01/25 11/01/25 metformin 750 mg tablet,extended 750 mg PO BID 11/01/25 11/01/25 release 24 hr Previous Rx's ?Medication ?Instructions ?Recorded folic acid 1 mg tablet 1 mg PO DAILY #90 tabs 02/05/21 diabetic shoes with 3 custom #1 ea 01/01/23 inserts Diabetic shoes with 3 pairs of #1 ea 07/02/23 inserts nitroglycerin 0.4 mg sublingual 0.4 mg sublingual Q5M PRN chest 02/23/25 tablet pain 30 days #30 tabs hydralazine 100 mg tablet See Rx Instructions .Route 08/13/25 Held on 11/03/25. .COMPLEX #270 tabs Instructions: Resume on 11/11/25. Please monitor blood pressure, hold for hypotension, resume under the direction of PCP. apixaban 5 mg tablet (Eliquis) 5 mg PO BID #180 tabs 08/17/25 isosorbide mononitrate 30 mg 30 mg PO DAILY #30 tabs 10/21/25 tablet,extended release 24 hr Allergies Allergy/AdvReac Type Severity Reaction Status Date / Time griseofulvin (From Fulvicin Allergy ADR-Headach Verified 10/21/25 07:42 P/G) e Review of Systems Const: Denies: fever(s) or chills Card: Denies: chest pain Resp: Denies: dyspnea GI: Denies: abdominal pain : Denies: dysuria, urinary frequency or urinary urgency Musc: Denies: neck pain or back pain Skin/Breast: Denies: rash PFSH ED PFSH: Medical History BPH loc w urin obs/LUTS Lower urinary tract symptoms (LUTS) Androgen deficiency Hx of cardiac pacemaker Arthritis Bipolar disorder Type 2 diabetes mellitus History of hypertension Hx of hyperlipidemia NAILA (obstructive sleep apnea) Symptomatic bradycardia Shortness of breath Surgical History Hx of lumbosacral spine surgery Hx of cataract extraction Family History Father , age 97 CAD (coronary artery disease) Diabetes Stroke Mother , age 84 Cancer CAD (coronary artery disease) Social History Smoking and tobacco/nicotine status: former use of tobacco/nicotine Alcohol intake: former Substance/Drug Use: never Lives independently: Yes Marital status: Current occupational status: retired Physical Exam Const: COMMON NORMALS: no acute distress GENERAL APPEARANCE: cooperative and comfortable ORIENTATION/CONSCIOUSNESS: Yes awake, Yes oriented to person, Yes oriented to place and Yes oriented to time HENMT: COMMON NORMALS: normocephalic, atraumatic and hearing grossly normal bilaterally HEAD & SCALP: normocephalic and atraumatic Resp: COMMON NORMALS: normal respiratory effort, No retractions, No use of accessory muscles and clear to auscultation bilaterally AUSCULTATION: clear to auscultation bilaterally Cardio: COMMON NORMALS: regular rate, regular rhythm and No murmurs present (Cardio) RATE: regular rate RHYTHM: regular rhythm GI: COMMON NORMALS: Soft to palpation and No hepatosplenomegaly present AUSCULTATION: Yes normoactive bowel sounds PALPATION: Yes Soft to palpation, No Tenderness to palpation present (GI), No Guarding due to palpation present (GI) and Yes No hepatosplenomegaly present Extremity: COMMON NORMALS: normal to inspection, capillary refill normal, no clubbing, cyanosis or edema, no calf tenderness and no pedal edema Neuro: SENSORIUM/ORIENTATION: Yes oriented to person, Yes oriented to place and Yes oriented to time Skin: COMMON NORMALS: no rashes or lesions noted GENERAL SKIN EXAM: no rashes or lesions noted Course Vital Signs: Vital signs: Vital Signs Temperature 97.5 F L 11/03/25 11:25 Pulse Rate 68 11/03/25 14:24 Respiratory Rate 16 11/03/25 11:25 Blood Pressure 98/72 11/03/25 14:24 Pulse Oximetry 95 11/03/25 14:24 Oxygen Delivery Me thod CPAP 11/03/25 11:25 Fraction of Inspir ed Oxygen 21 11/01/25 20:28 MDM - Weakness Medical Decision Making Labs and imaging reviewed as found on the chart. Chest x-ray unremarkable no effusions no infiltrates no sign of pulm pulmonary vascular congestion congestive heart failure. CT head unremarkable there is chronic atrophy changes as expected for age but there is no acute infiltrates no masses. No acute hemorrhagic events noted. Some changes suggestive of chronic white matter disease. CT lumbar spine no acute pathology noted. Discussed with patient and his who is his main caregiver who attends the visit with him and contributes to the history. He is extremely weak we attempted to walk he cannot stand or ambulate on his own she is much smaller than him and cannot manage him. He is stating that he has been weak for extended period of time but the last several days has been a pronounced change to where he cannot ambulate at all even with the assistance of his walker he requires help in the emergency room at home his cannot help him at all. Will admit for sudden onset of generalized weakness he has no cauda equina's symptoms at this time he has not had a loss of bowel or bladder function. There is no trauma nothing on his CT suggest suggest acute fracture or mass on the spinal cord. He has normal sensation and vascular benavidez he is intact in his lower extremities. Will admit. Discussed plans with patient they are agreeable. Discussed with hospitalist and orders are written. Medical Records I reviewed the patient's medical records. Coronary angiogram 10/21/2025 Conclusions 1. This is a 75-year-old white male with history of hypertension, atrial fibrillation, dyslipidemia, sleep apnea and obesity, presents with complaints of chest pain and shortness of breath. He had a Myocardial perfusion imaging which revealed areas of fixed defects with small areas of reversible defects. Because of the increasing episodes of chest pains, in order to further evaluate the coronary status, a cardiac catheterization was recommended. Patient underwent left heart catheterization with left and right coronary angiogram today. The findings are as follows. 2. Left main has minimal intimal irregularities. LAD was found to have a long segment of extrinsic compression at the mid portion. Minimal plaques in the other vessels. LVEDP of 23 mmHg. 3. Based on the above angiographic findings, it was opted to treat the patient medically. He was transferred to the medical floor in stable condition. Diagnostic RX Recommendation: medical therapy and/or counseling Lab Data I reviewed the patient's lab results. 11/03/25 05:28 11/03/25 05:28 Radiology Impressions Chest X-Ray 10/31/25 18:01 IMPRESSION: No acute pulmonary disease. Head CT 10/31/25 20:43 IMPRESSION: 1. No acute intracranial pathology. 2. Senescent changes. Lumbar Spine CT 10/31/25 22:55 IMPRESSION: 1. No acute pathology. 2. Degenerative changes detailed in a level by level analysis above. Laboratory Results WBC 10.60 10^3/uL (3.29-11.43) 10/31/25 18:20 RBC 4.72 10^6/uL (3.85-5.65) 10/31/25 18:20 Hgb 15.30 g/dL (11.27-16.99) 10/31/25 18:20 Hct 45.5 % (37-53) 10/31/25 18:20 MCV 96.4 fl (82-101) 10/31/25 18:20 MCH 32.4 pg (27-33) 10/31/25 18:20 MCHC 33.6 g/dL (30-55) 10/31/25 18:20 RDW 12.8 % (12.1-15.1) 10/31/25 18:20 Plt Count 139 10^3/cmm (157-399) L 10/31/25 18:20 MPV 9.2 fL (7.4-10.4) 10/31/25 18:20 Neut % (Auto) 89.8 % 10/31/25 18:20 Lymph % (Auto) 2.3 % 10/31/25 18:20 Dawson % (Auto) 6.8 % 10/31/25 18:20 Eos % (Auto) 0.1 % 10/31/25 18:20 Baso % (Auto) 0.3 % 10/31/25 18:20 Neut # (Auto) 9.53 10^3/uL (1.8-7.7) H 10/31/25 18:20 Lymph # (Auto) 0.2 10^3/uL (0.8-4.8) L 10/31/25 18:20 Dawson # (Auto) 0.7 10^3/uL (0.2-0.9) 10/31/25 18:20 Eos # (Auto) 0.0 10^3/uL (0.0-0.8) 10/31/25 18:20 Baso # (Auto) 0.0 10^3/uL (0.0-0.1) 10/31/25 18:20 Nucleated RBC % (auto) 0 % 10/31/25 18:20 Nucleated RBCs # 0.0 /100WBC 10/31/25 18:20 Sodium 137 mmol/L (136-145) 11/02/25 04:37 Potassium 4.1 mmol/L (3.5-5.1) 11/02/25 04:37 Chloride 103 mmol/L (98-107) 11/02/25 04:37 Carbon Dioxide 20 mmol/L (22-29) L 11/02/25 04:37 Anion Gap 18.1 (5-19) 11/02/25 04:37 BUN 17 mg/dL (8-23) 11/02/25 04:37 Creatinine 1.1 mg/dL (0.7-1.2) 11/02/25 04:37 GFR Calculation Not Reportable 11/02/25 04:37 Glucose 192 mg/dL (65-115) H 11/02/25 04:37 Calculated Osmolality 291 mOsm/kg (285-295) 11/02/25 04:37 Calcium 8.8 mg/dL (8.5-10.5) 11/02/25 04:37 Total Bilirubin 0.6 mg/dL (0.15-1.2) 11/02/25 04:37 AST 332 U/L (0-40) H 11/02/25 04:37 ALT 95 U/L (0-41) H 11/02/25 04:37 Alkaline Phosphatase 77 U/L (40-130) 11/02/25 04:37 Total Protein 5.8 g/dL (6.6-8.7) L 11/02/25 04:37 Albumin 3.7 g/dL (3.5-5.2) 11/02/25 04:37 Globulin 2.1 g/dL (1.3-4.6) 11/02/25 04:37 Urine Color Yellow (Yellow) 10/31/25 19:53 Urine Appearance Clear (CLEAR) 10/31/25 19:53 Urine pH 5.0 (5-7) 10/31/25 19:53 Ur Specific [place] 1.024 (1.005-1.030) 10/31/25 19:53 Urine Protein 1+ (Negative) A 10/31/25 19:53 Urine Glucose (UA) Trace (Normal) H 10/31/25 19:53 Urine Ketones 2+ (Negative) H 10/31/25 19:53 Urine Blood Trace (Negative) A 10/31/25 19:53 Urine Nitrate Negative (Negative) 10/31/25 19:53 Urine Bilirubin Negative (Negative) 10/31/25 19:53 Urine Urobilinogen 1.0 mg/dL (Negative) 10/31/25 19:53 Ur Leukocyte Esterase Negative (Negative) 10/31/25 19:53 Urine RBC 0-2 /hpf (0-2) 10/31/25 19:53 Urine WBC 0-5 /hpf (0-5) 10/31/25 19:53 Ur Squamous Epith Cells 0-5 /hpf (0-5) 10/31/25 19:53 Amorphous Sediment Not Reportable 10/31/25 19:53 Urine Bacteria None seen /hpf (NONE) 10/31/25 19:53 Hyaline Casts 2.87 /lpf 10/31/25 19:53 Adenovirus (PCR) Not detected (NOT DETECT) 11/01/25 10:50 C. pneumoniae DNA (PCR) Not detected (NOT DETECT) 11/01/25 10:50 Coronavirus 229E (PCR) Not detected (NOT DETECT) 11/01/25 10:50 Human Metapneumovir PCR Not detected (NOT DETECT) 11/01/25 10:50 Influenza A (H1) PCR Not detected (NOT DETECT) 11/01/25 10:50 Influ A (H1/09) PCR Not detected (NOT DETECT) 11/01/25 10:50 Influenza A (H3) PCR Detected (NOT DETECT) A 11/01/25 10:50 Influenza Type A (PCR) Detected (NOT DETECT) A 11/01/25 10:50 Influenza Type B (PCR) Not detected (NOT DETECT) 11/01/25 10:50 M. pneumoniae (PCR) Not detected (NOT DETECT) 11/01/25 10:50 Parainfluenza 1 (PCR) Not detected (NOT DETECT) 11/01/25 10:50 Parainfluenza 2 (PCR) Not detected (NOT DETECT) 11/01/25 10:50 Parainfluenza 3 (PCR) Not detected (NOT DETECT) 11/01/25 10:50 Parainfluenza 4 (PCR) Not detected (NOT DETECT) 11/01/25 10:50 RSV Type A (PCR) Not detected (NOT DETECT) 11/01/25 10:50 RSV Type B (PCR) Not detected (NOT DETECT) 11/01/25 10:50 Entero/Rhino (PCR) Not detected (NOT DETECT) 11/01/25 10:50 SARS-CoV-2 (PCR) Not detected (NOT DETECT) 11/01/25 10:50 All radiology interpretation(s) finalized by discharge EKG Data EKG 1: I personally reviewed and interpreted this EKG as follows: Interpretation: EKG 10/31/2025 1920 6 AM paced rhythm unchanged from previous 02/23/2025 rate of 79 QTc 512 no further evaluation possible. Patient does not have any changes consistent with Sgarbossa's criteria. Discharge Plan Discharge Patient Disposition: Admitted As Inpatient Admit Provider: Jose M Mccord Clinical Impression: Generalized weakness, Peripheral neuropathy, Chronic atrial fibrillation Type 2 diabetes mellitus Qualifiers: Diabetes mellitus [facility] insulin use: with [facility] use Diabetes mellitus complication status: with hyperglycemia Qualified Code(s): E11.65 - Type 2 diabetes mellitus with hyperglycemia Condition: Stable Discharge Diet: Cardiac Discharge Activity: Resume usual activity Coding Level of Care Code ED Roof Mechanic for Leonel Evans
--- NOTE | 2025-10-31 19:26 | ECG_ITS ---
[facility] Date: 2025-10-31 Pat Name: Gurinder Downing Department: Room: Gender: Male Rehabilitation Therapist: : 1950 Requested By: Eddie Gloria Order Number: [id number] Reading MD: JESSIKA GARCIA Measurements Intervals Diagonal Rate: 79 P: 0 OR: 0 QRS: -76 QRSD: 195 T: 90 QT: 445 QTc: 512 Interpretive Statements ELECTRONIC VENTRICULAR PACEMAKER ABNORMAL RHYTHM ECG Compared to ECG 02/23/2025 16:20:00 No significant changes Electronically Signed On 11-01-2025 22:56:38 BROADCASTING EQUIPMENT MECHANIC by JESSIKA GARCIA [id number]
[2025-10-31 20:13] LABS: Glucose Urine UA Trace (Normal); Nitrate Urine Negative (Negative); Specific Gravity, Urine 1.024 (1.005-1.030)
[2025-10-31 20:16] LABS: Add Urine Microscopic? YES
--- NOTE | 2025-10-31 20:43 | CTR_ITS ---
PROCEDURE INFORMATION: Exam: CT Head Without Contrast Exam date and time: 10/31/2025 9:19 PM Age: 75 years old Clinical indication: Other: General weakness TECHNIQUE: Imaging protocol: Computed tomography of the head without contrast. Radiation optimization: All CT scans at this facility use at least one of these dose optimization techniques: automated exposure control; mA and/or kV adjustment per patient size (includes targeted exams where dose is matched to clinical indication); or iterative reconstruction. COMPARISON: No relevant prior studies available. RADIATION DOSE METRICS: Total DLP (mGy-cm): 1216.89 FINDINGS: Brain: There is moderate cerebral atrophy. There are moderate deep white matter microangiopathic ischemic changes. No acute hemorrhage is identified. No mass or mass effect is identified. Cerebral ventricles: Moderately dilated ventricles secondary to atrophy. Paranasal sinuses: Trace bilateral maxillary mucosal thickening. Mastoid air cells: The mastoid air cells are clear. Bones: No acute osseous abnormalities are seen. Soft tissues: The soft tissues are within normal limits. CT/CT head wo con* [id number] IMPRESSION: 1. No acute intracranial pathology. 2. Senescent changes.
--- NOTE | 2025-10-31 22:55 | CTR_ITS ---
PROCEDURE INFORMATION: Exam: CT Lumbar Spine Without Contrast Exam date and time: 10/31/2025 11:42 PM Age: 75 years old Clinical indication: Bilatera lower ext weakness with walking difficulty. ; Additional info: Weakness inability to stand or ambulate TECHNIQUE: Imaging protocol: Computed tomography of the lumbar spine without contrast. Radiation optimization: All CT scans at this facility use at least one of these dose optimization techniques: automated exposure control; mA and/or kV adjustment per patient size (includes targeted exams where dose is matched to clinical indication); or iterative reconstruction. COMPARISON: US abdomen limited [id number] 09/18/2024 2:00 PM RADIATION DOSE METRICS: Total DLP (mGy-cm): 1424.7 FINDINGS: Bones/joints: Aobq-wd-mxpavqkl levoscoliosis. Trace retrolisthesis of L1 on L2. Alignment is otherwise intact. Chronic appearing inferior endplate height loss of L1. No evidence of acute fracture. L1-L2: Xenskrob-is-ohvnah disc height loss. Moderate facet arthropathy. Cncqbnhm-oq-srcbc disc osteophyte complex. Moderate central canal stenosis. Moderate left and severe right neural foraminal stenosis. L2-L3: Kfzf-ej-qqpypjbf facet arthropathy. Cwqnppdp-rm-yrvksv disc height loss. Moderate disc osteophyte complex. Rmzu-us-zvbneslk central canal stenosis. Moderate right neural foraminal stenosis. L3-L4: Wvwwibyu-ux-kznfog disc height loss. Moderate bilateral facet arthropathy and ligamentum thickening. Moderate central canal stenosis. Buyj-qy-xqlgtppb right neural foraminal stenosis. L4-L5: Mild disc height loss moderate broad-based disc bulge. Severe bilateral facet arthropathy. Cnvwkycw-ce-locgim central canal stenosis. Moderate left and mild right neural foraminal stenosis. L5-S1: Severe disc height loss. Rzcj-gb-goojnplm bilateral facet arthropathy. No significant disc bulge. No central canal stenosis. Mild right and severe left neural foraminal stenosis. Soft tissues: The soft tissues are within normal limits. CT/CT lumbar spine wo con* [id number] IMPRESSION: 1. No acute pathology. 2. Degenerative changes detailed in a level by level analysis above.
--- NOTE | 2025-10-31 23:30 | PM.HP ---
Providers/Chief Complaint Primary Care Provider: Сергей Vlilatoro DO Chief Complaint: weakness History of Present Illness Gurinder Downing is a 75 year old male with history significant for atrial fibrillation(on anticoagulation), hypertension, diabetes, and remote history of lumbar surgery in the 1979, who presents with complaints of lower extremity weakness and back pain. He states his current issues have been present before and he feels it is primarily muscular in nature. He tells me for the past 3-4 days, he has had weakness to the point he has had difficulty repositioning in bed. He denies any bowel or bladder incontinence. He does have lower back pain, 3/10 without any recent injuries. No numbness of tingling. He will use a cane/walker at times for ambulatory. is present and feels she can not help him at home right now due to his weakness. She also mentions the patient had a fever of 102 today. Patient denies chest pain, shortness of breath, nausea, vomiting, or diarrhea. No cough, runny nose, or sore throat. Medications/Allergies Home Medications ?Medication ?Instructions ?Recorded ?Confirmed ?Last Taken ?Type acetaminophen 500 mg tablet 500 mg PO PRN 02/02/21 10/20/25 Unknown History (Tylenol Extra Strength) atorvastatin 40 mg tablet See Rx Instructions .Route .COMPLEX 02/02/21 10/20/25 10/19/25 History bupropion HCl 75 mg tablet See Rx Instructions .Route .COMPLEX 02/02/21 10/20/25 10/20/25 History diphenhydramine HCl 25 mg capsule 25 mg PO PRN 02/02/21 10/20/25 Unknown History (Benadryl) methylphenidate HCl 20 mg tablet 20 mg PO BID 02/02/21 10/20/25 10/20/25 History (Ritalin) multivitamin 1 tab PO DAILY 02/02/21 10/20/25 10/20/25 History olmesartan 40 mg tablet (Benicar) 40 mg PO QAM 02/02/21 10/20/25 10/20/25 History vitamin B complex 1 tab PO DAILY 02/02/21 10/20/25 10/20/25 History folic acid 1 mg tablet 1 mg PO DAILY #90 tabs 02/05/21 10/20/25 10/20/25 Rx divalproex 500 mg tablet,extended See Rx Instructions .Route .COMPLEX 06/14/21 10/20/25 10/20/25 History release 24 hr cholecalciferol (vitamin D3) 25 25 mcg PO DAILY 11/07/21 10/20/25 10/20/25 History mcg (1,000 unit) capsule diabetic shoes with 3 custom #1 ea 01/01/23 09/22/25 10/20/25 Rx inserts gabapentin 300 mg capsule 300 mg PO BEDTIME 05/28/23 10/20/25 10/20/25 History Diabetic shoes with 3 pairs of #1 ea 07/02/23 09/22/25 10/20/25 Rx inserts metformin 500 mg tablet 750 mg PO BID 01/15/24 10/20/25 10/20/25 History nitroglycerin 0.4 mg sublingual 0.4 mg sublingual Q5M PRN chest 02/23/25 10/20/25 Unknown Rx tablet pain 30 days #30 tabs hydrocodone 5 mg-acetaminophen 325 1 tab PO Q6H PRN pain #14 tabs 07/20/25 10/20/25 10/20/25 Rx mg tablet hydralazine 100 mg tablet See Rx Instructions .Route 08/13/25 10/20/25 10/20/25 Rx .COMPLEX #270 tabs apixaban 5 mg tablet (Eliquis) 5 mg PO BID #180 tabs 08/17/25 10/20/25 10/18/25 Rx Held on 10/21/25. Instructions: Resume on 10/23/25. Patient may restart the Eliquis on the . amlodipine 10 mg tablet 10 mg PO DAILY 10/20/25 10/20/25 10/20/25 History isosorbide mononitrate 30 mg 30 mg PO DAILY #30 tabs 10/21/25 Unknown Rx tablet,extended release 24 hr Allergies Allergy/AdvReac Type Severity Reaction Status Date / Time griseofulvin (From Fulvicin Allergy ADR-Headach Verified 10/21/25 07:42 P/G) e PFSH Acute PFSH: Medical History (Updated 11/01/25 @ 00:29 by Jose M Mccord MD) BPH loc w urin obs/LUTS Lower urinary tract symptoms (LUTS) Androgen deficiency Hx of cardiac pacemaker Arthritis Bipolar disorder Type 2 diabetes mellitus History of hypertension Hx of hyperlipidemia NAILA (obstructive sleep apnea) Symptomatic bradycardia Shortness of breath Surgical History Hx of lumbosacral spine surgery Hx of cataract extraction Family History Father , age 97 CAD (coronary artery disease) Diabetes Stroke Mother , age 84 Cancer CAD (coronary artery disease) Social History Smoking and tobacco/nicotine status: former use of tobacco/nicotine Alcohol intake: former Substance/Drug Use: never Lives independently: Yes Marital status: Current occupational status: retired Vitals/I&O/Wt Last Vital Signs Temp 98.1 F 10/31/25 17:48 Pulse 66 10/31/25 23:06 Resp 18 10/31/25 23:06 BP 150/60 10/31/25 23:06 Pulse Ox 93 10/31/25 23:06 O2 Del Method Room Air 10/31/25 17:48 Weight last 48 hrs Weight 116.573 kg Physical Exam Narrative: The patient is awake alert and oriented. Appears uncomfortable. Mood and affect are appropriate. Responses are adequate. Skin is warm and dry. Moist mucous membranes. Eyes PERRLA, extraocular muscles are intact Neck supple. No JVD Lungs clear to auscultation bilaterally. Heart S1, S2, regular Abdomen soft, obese, nontender, bowel sounds are present Extremities no edema 4/5 lower extremity muscle strength bilaterally Neuro evaluation is nonfocal. normal speech. No tremors Data 10/31/25 18:20 10/31/25 18:20 A&P Assessment and plan 1. Lower extremity weakness: - Not entirely clear as to the etiology but this is recurrent. Maybe related to back pain - CT Lumbar spine shows no acute findings - Consult PT/OT in the AM 2. Chronic atrial fibrillation: - Continue Eliquis for anticoagulation 3. Type 2 diabetes mellitus: - Place on SSI 4. History of hypertension: - Continue home antihypertensive meds PDMP PDMP Reviewed: Not Reviewed Attestations Medical Necessity Statement*: Patient anticipated to require less than two midnights inpatient for management of lower extremity weakness Coding Level of Care Code Acute Code for Chg Fwd Diagnoses Lower extremity weakness R29.898 Chronic atrial fibrillation I48.20 Type 2 diabetes mellitus E11.9 History of hypertension Z86.79
[2025-11-01] VITALS (8 sets, daily range): BP systolic 121–166; BP diastolic 61–78; PULSE 60–78; RESP 17–19; TEMP 36.7–38.7; O2SAT 92–98; BMI 37.5
[2025-11-01] MEDS: multivitamin therapeutic Tablet 1 TAB PO (05:00)
[2025-11-01] MEDS: LOSARTAN 100 MG TABLET PO (05:00)
[2025-11-01] MEDS: b-complex-vitamin c Tablet 1 EACH PO (05:00)
--- NOTE | 2025-11-01 05:44 | PC.NURSE ---
Vit D not given due to tablet is 1000 units and order is for 25 units. Nurse unable to cut 0.025 units from 1 tablet
--- NOTE | 2025-11-01 07:53 | PC.NURSE ---
Medication ordered wrong for Vitamin D3 at 25 units daily per Evelin. Verbal orders for Vitamin D3 1000 units as per home medications restarted.
[2025-11-01 12:46] LABS: Coronavirus 229E,HKU1,NL63,OC4 Not Detected (NOT DETECT); Parainfluenza Virus Type 1 Not Detected (NOT DETECT); Parainfluenza Virus Type 2 Not Detected (NOT DETECT); Parainfluenza Virus Type 3 Not Detected (NOT DETECT); Parainfluenza Virus Type 4 Not Detected (NOT DETECT); SARS-COV-2 Not Detected (NOT DETECT)
[2025-11-01] MEDS: divalproex ER 500 mg Tablet (24H) 1000 MG PO (20:34)
--- NOTE | 2025-11-01 23:04 | P.PN_ITS ---
Subjective 2 Subjective: Saw patient at bedside with his today, patient is resting comfortably on CPAP. He states he has been having runny nose, cough, mild chills for the past 2 days. He states that children at home have been having runny noses and colds. Influenza A detected on PCR. No secretions, no leukocytosis. Positive fever overnight. Vitals/I&O/Wt Last Vital Signs Temp 98.9 F 11/01/25 20:00 Pulse 78 11/01/25 20:00 Resp 18 11/01/25 20:00 BP 122/63 11/01/25 20:00 Pulse Ox 95 11/01/25 20:00 O2 Del Method Room Air 11/01/25 15:50 FiO2 21 11/01/25 20:28 11/01/25 11/01/25 11/02/25 14:59 22:59 06:59 Intake Total 1600 / 1600 1225 / 2825 Output Total 50 / 50 Balance 1600 / 1600 1175 / 2775 Weight last 48 hrs Weight 121.563 kg Weight 121.971 kg Weight 116.573 kg Physical Exam 2 Narrative: The patient is awake alert and oriented. Appears uncomfortable. Mood and affect are appropriate. Responses are adequate. Skin is warm and dry. Moist mucous membranes. Eyes PERRLA, extraocular muscles are intact Neck supple. No JVD Lungs clear to auscultation bilaterally. Heart S1, S2, regular Abdomen soft, obese, nontender, bowel sounds are present Extremities no edema 4/5 lower extremity muscle strength bila terally Neuro evaluation is nonfocal. normal speech. No tremors Data 10/31/25 18:20 10/31/25 18:20 Micro: Microbiology 11/01/25 14:11 Blood Culture - Preliminary Blood SPECIMEN COLLECTED 11/01/25 14:11 Blood Culture - Preliminary Blood SPECIMEN COLLECTED A&P Assessment and plan 1. Lower extremity weakness: 2. URI due to influenza A virus: Plan: Lower extremity weakness Lower back pain Influenza A upper respiratory infection Permanent atrial fibrillation Type 2 diabetes mellitus Primary hypertension BPH Patient has likely weakness, back pain from coughing, lethargy due to his acute flu, influenza A H3. ? Replenish losses with IV LR boluses as needed ? Start Tamiflu ? CPAP at night and while sleeping ? For diabetes, and diabetic neuropathy, continue gabapentin 300 mg p.o. at bedtime, watch blood sugars while on prednisone ? Prednisone for upper respiratory symptoms 40 mg p.o. daily x 5 days ? Tamsulosin p.o. daily for urinary symptoms ? Continue antihypertensive patient is takes at home hydralazine 100 mg p.o. 3 times daily, amlodipine 10 mg p.o. daily, losartan 100 mg p.o. daily ? Tylenol as needed Patient is stable, will volume resuscitate him, provide supportive measures. Anticipate discharge after 1 additional midnight. DVT prophylaxis: Continue Eliquis 5 mg p.o. twice daily for which she takes for permanent A-fib. PDMP PDMP Reviewed: Not Reviewed Attestations 2 Medical Necessity Statement*: Patient requires IV fluids and supportive measures for acute upper respiratory infection. Anticipate discharge after 1 more midnight. Diagnoses Lower extremity weakness R29.898 URI due to influenza A virus J10.1
[2025-11-02] VITALS (8 sets, daily range): BP systolic 107–142; BP diastolic 61–76; PULSE 60–88; RESP 17–19; TEMP 36.4–37; O2SAT 90–100
[2025-11-02 05:37] LABS: Alanine Aminotransferase 95 U/L (0-41); Albumin Level 3.7 g/dL (3.5-5.2); Alkaline Phosphatase 77 U/L (40-130); Blood Urea Nitrogen 17 mg/dL (8-23); Calcium 8.8 mg/dL (8.5-10.5); Carbon Dioxide 20 mmol/L (22-29); Chloride 103 mmol/L (98-107); Globulin 2.1 g/dL (1.3-4.6); Glucose 192 mg/dL (65-115); Osmolality Calculated 291 mOsm/kg (285-295); Sodium 137 mmol/L (136-145); Total Protein 5.8 g/dL (6.6-8.7)
[2025-11-02] MEDS: b-complex-vitamin c Tablet 1 EACH PO (05:37)
[2025-11-02] MEDS: LOSARTAN 100 MG TABLET PO (05:38)
[2025-11-02] MEDS: multivitamin therapeutic Tablet 1 TAB PO (05:38)
[2025-11-02 05:43] LABS: Anion Gap 18.1 (5-19); Aspartate Amino Transferase 332 U/L (0-40); Potassium 4.1 mmol/L (3.5-5.1)
--- NOTE | 2025-11-02 09:18 | PC.CHAP ---
Pastoral Care Encounter/Spiritual Assessment Type of Contact [] Declined city planning engineer visit [] Patient/Family/Request visit [] Outpatient visit [] Follow-up visit [] Physician referral [] Code/Alert [x] Routine visit [] Staff referral [] Actively dying [] Patient sleeping [] Family support [] [] Out of room [] Palliative care [] [] Receiving care in room [] Pre-surgical visit [] Trauma [] Long length of stay [] ICU visit [] Other: Relational/Emotional Strength [] Patient feels connected with others/family/visitors/staff [] Distress [] Loneliness/isolation [] Abandonment Spirituality of Patient [] Person of Adelina [] Attends Yarsanism of their Adelina [] Believes in Prayer [] Reads Bible or Hinduism materials [] There are 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[employer] Interventions [x] Prayer [] Active listening [] Non-anxious presence [] Spiritual/emotional support [] Crisis/trauma care [] Spiritual counseling [] Bereavement support [] Provided bereavement packet [] Provided Bible/devotional materials [] Provided toy/stuffed animal, coloring book to patient or family member [] Provided Communion [] Anointing/[place] [] Salvation [] Completed spiritual assessment [] Other: Impact on Illness or Injury [] Angry [] Fearful [] Anxious [] Often cries [] Exhaustion [] Unable to work [] Unable to attend orthodoxy [] Unable to walk/stand [] Unable to read [] Unable to drive [] Unable to eat/drink [] Unable to sleep [] Unable to be with family [] Patient intubated [] Other: Summary precaution Time spent with patient
--- NOTE | 2025-11-02 17:07 | PC.OT ---
OT EVALUATION ATTEMPTED. PATIENT IS RESTING AND FAMILY STATES THAT THEY WOULD LIKE FOR OT TO HOLD UNTIL TOMORROW. ALSO, THAT THE PATIENT MAY D/C HOME TOMORROW.
[2025-11-02] MEDS: divalproex ER 500 mg Tablet (24H) 1000 MG PO (21:17)
[2025-11-03] VITALS: BP 124/73; PULSE 60; RESP 18; TEMP 36.9; O2SAT 94
--- NOTE | 2025-11-03 00:58 | P.PN_ITS ---
Subjective 2 Subjective: Patient is a very pleasant 75-year-old male seen and examined at bedside on hospital rounds today. Patient sitting up stating some mild constipation but that he did not really have an appetite until today and is just now eating regularly. Patient denies any new or worsening symptoms. Reviewed vital signs stable, elevated AST 332, ALT 95. Reviewed previous providers documentation, agree with plan documented on this date of service with no addendum's or additions. Vitals/I&O/Wt Last Vital Signs Temp 98.4 F 11/03/25 00:00 Pulse 60 11/03/25 00:00 Resp 18 11/03/25 00:00 BP 124/73 11/03/25 00:00 Pulse Ox 94 11/03/25 00:00 O2 Del Method Room Air 11/02/25 15:55 FiO2 21 11/01/25 20:28 11/02/25 11/02/25 11/03/25 14:59 22:59 06:59 Intake Total 2120 / 2120 600 / 2720 Balance 2120 / 2120 600 / 2720 Weight last 48 hrs Weight 121.733 kg Weight 121.563 kg Weight 121.971 kg Physical Exam 2 Narrative: The patient is awake alert and oriented. Appears uncomfortable. Mood and affect are appropriate. Responses are adequate. Skin is warm and dry. Moist mucous membranes. Eyes PERRLA, extraocular muscles are intact Neck supple. No JVD Lungs clear to auscultation bilaterally. Heart S1, S2, regular Abdomen soft, obese, nontender, bowel sounds are present Extremities no edema 4/5 lower extremity muscle strength bila terally Neuro evaluation is nonfocal. normal speech. No tremors Data 10/31/25 18:20 11/02/25 04:37 Micro: Microbiology 11/01/25 14:11 Blood Culture - Preliminary Blood NEGATIVE TO DATE 11/01/25 14:11 Blood Culture - Preliminary Blood NEGATIVE TO DATE A&P Assessment and plan 1. Lower extremity weakness: 2. URI due to influenza A virus: Plan: Lower extremity weakness Lower back pain Influenza A upper respiratory infection Permanent atrial fibrillation Type 2 diabetes mellitus Primary hypertension BPH Patient has likely weakness, back pain from coughing, lethargy due to his acute flu, influenza A H3. ? Replenish losses with IV LR boluses as needed ? Start Tamiflu ? CPAP at night and while sleeping ? For diabetes, and diabetic neuropathy, continue gabapentin 300 mg p.o. at bedtime, watch blood sugars while on prednisone ? Prednisone for upper respiratory symptoms 40 mg p.o. daily x 5 days ? Tamsulosin p.o. daily for urinary symptoms ? Continue antihypertensive patient is takes at home hydralazine 100 mg p.o. 3 times daily, amlodipine 10 mg p.o. daily, losartan 100 mg p.o. daily ? Tylenol as needed Patient is stable, will volume resuscitate him, provide supportive measures. Anticipate discharge after 1 additional midnight. DVT prophylaxis: Continue Eliquis 5 mg p.o. twice daily for which she takes for permanent A-fib. PDMP PDMP Reviewed: Not Reviewed Attestations 2 Medical Necessity Statement*: Patient requires IV fluids and supportive measures for acute upper respiratory infection. Anticipate discharge after 1 more midnight. Coding Level of Care Code 18329 Diagnoses Lower extremity weakness R29.898 URI due to influenza A virus J10.1
[2025-11-03 04:00] VITALS: BP 128/70; PULSE 65; RESP 16; TEMP 36.6; O2SAT 95
[2025-11-03] MEDS: LOSARTAN 100 MG TABLET PO (04:59)
[2025-11-03] MEDS: b-complex-vitamin c Tablet 1 EACH PO (04:59)
[2025-11-03] MEDS: multivitamin therapeutic Tablet 1 TAB PO (04:59)
[2025-11-03 05:53] VITALS: PULSE 76
[2025-11-03 06:58] LABS: Hematocrit 43.0 % (37-53); Hemoglobin 14.90 g/dL (11.27-16.99); Mean Corpuscular HGB Conc 34.7 g/dL (30-55); Mean Corpuscular Hemoglobin 32.6 pg (27-33); Mean Corpuscular Volume 94.1 fl (82-101); Nucleated Red Blood Cells % 0 %; Platelet Count 130 10^3/cmm (157-399); Red Blood Count 4.57 10^6/uL (3.85-5.65); White Blood Count 4.43 10^3/uL (3.29-11.43)
[2025-11-03 07:24] LABS: Alanine Aminotransferase 111 U/L (0-41); Albumin Level 3.4 g/dL (3.5-5.2); Alkaline Phosphatase 76 U/L (40-130); Anion Gap 17.3 (5-19); Aspartate Amino Transferase 332 U/L (0-40); Blood Urea Nitrogen 22 mg/dL (8-23); Calcium 8.8 mg/dL (8.5-10.5); Carbon Dioxide 21 mmol/L (22-29); Chloride 105 mmol/L (98-107); Globulin 2.0 g/dL (1.3-4.6); Glucose 153 mg/dL (65-115); Magnesium 2.1 mg/dL (1.7-2.3); Osmolality Calculated 296 mOsm/kg (285-295); Potassium 3.3 mmol/L (3.5-5.1); Sodium 140 mmol/L (136-145); Total Protein 5.4 g/dL (6.6-8.7)
[2025-11-03 07:36] VITALS: BP 103/70; PULSE 91; RESP 18; TEMP 36.8; O2SAT 94
--- NOTE | 2025-11-03 09:42 | PC.CHAP ---
Pastoral Care Encounter/Spiritual Assessment Type of Contact [] Declined dump truck operator visit [] Patient/Family/Request visit [] Outpatient visit [] Follow-up visit [] Physician referral [] Code/Alert [] Routine visit [] Staff referral [] Actively dying [] Patient sleeping [] Family support [] [] Out of room [] Palliative care [] [] Receiving care in room [] Pre-surgical visit [] Trauma [] Long length of stay [] ICU visit [x] Other:Contact precautions. No visit. Relational/Emotional Strength [] Patient feels connected with others/family/visitors/staff [] Distress [] Loneliness/isolation [] Abandonment Spirituality of Patient [] Person of Adelina [] Attends Episcopalian of their Adelina [] Believes in Prayer [] Reads Bible or Anglican materials [] There are Spiritual issues to be addressed [place] Interventions [] Prayer [] Active listening [] Non-anxious presence [] Spiritual/emotional support [] Crisis/trauma care [] Spiritual counseling [] Bereavement support [] Provided bereavement packet [] Provided Bible/devotional materials [] Provided toy/stuffed animal, coloring book to patient or family member [] Provided Communion [] Anointing/[place] [] Salvation [] Completed spiritual assessment [] Other: Impact on Illness or Injury [] Angry [] Fearful [] Anxious [] Often cries [] Exhaustion [] Unable to work [] Unable to attend gnosticist [] Unable to walk/stand [] Unable to read [] Unable to drive [] Unable to eat/drink [] Unable to sleep [] Unable to be with family [] Patient intubated [] Other: Summary Time spent with patient
--- NOTE | 2025-11-03 11:11 | PC.NURSE ---
This nurse non-admitted afternoon dose of 100mg Hydralazine due to BP of 88/56. DREAD Mooney notified.
[2025-11-03 11:25] VITALS: BP 88/56; PULSE 66; RESP 16; TEMP 36.4; O2SAT 93
--- NOTE | 2025-11-03 12:57 | P.DS_ITS ---
Discharge Providers Date of Admission: 11/02/25 09:00 Date of Discharge: November 03, 2025 Attending Provider at Admission: Jose M Mccord MD Attending Provider at Discharge: Jesica Whitmore NP Primary Care Provider: Сергей Villatoro DO Diagnoses at Discharge Discharge Diagnosis 1. Lower extremity weakness: 2. URI due to influenza A virus: Reason for Visit Reason for Visit: weakness Brief History: Admission: Gurinder Downing is a 75 year old male with history significant for atrial fibrillation(on anticoagulation), hypertension, diabetes, and remote history of lumbar surgery in the 1979, who presents with complaints of lower extremity weakness and back pain. He states his current issues have been present before and he feels it is primarily muscular in nature. He tells me for the past 3-4 days, he has had weakness to the point he has had difficulty repositioning in bed. He denies any bowel or bladder incontinence. He does have lower back pain, 3/10 without any recent injuries. No numbness of tingling. He will use a cane/walker at times for ambulatory. is present and feels she can not help him at home right now due to his weakness. She also mentions the patient had a fever of 102 today. Patient denies chest pain, shortness of breath, nausea, vomiting, or diarrhea. No cough, runny nose, or sore throat. Hospital Course Hospital Course Upper respiratory infection due to influenza A virus Lower extremity weakness Lower back pain Influenza A upper respiratory infection Permanent atrial fibrillation Type 2 diabetes mellitus Primary hypertension BPH Patient has likely weakness, back pain from coughing, lethargy due to his acute flu, influenza A H3. ? Replenish losses with IV LR boluses as needed ? Start Tamiflu ? CPAP at night and while sleeping ? For diabetes, and diabetic neuropathy, continue gabapentin 300 mg p.o. at bedtime, watch blood sugars while on prednisone ? Prednisone for upper respiratory symptoms 40 mg p.o. daily x 5 days ? Tamsulosin p.o. daily for urinary symptoms ? Continue antihypertensive patient is takes at home hydralazine 100 mg p.o. 3 times daily, amlodipine 10 mg p.o. daily, losartan 100 mg p.o. daily ? Tylenol as needed Discharge: Patient requested discharge home, discharges in stable condition in care of spouse. Advised continued oral fluid hydration, resume home medications as tolerated. Patient is advised to hold hypertensive medication in the setting of hypotension. Patient is advised to follow-up with primary care provider in 1 to 2 days. All questions and concerns addressed with the patient and his spouse prior to discharge. Physical Exam Narrative: The patient is awake alert and oriented. Appears uncomfortable. Mood and affect are appropriate. Responses are adequate. Skin is warm and dry. Moist mucous membranes. Eyes PERRLA, extraocular muscles are intact Neck supple. No JVD Lungs clear to auscultation bilaterally. Heart S1, S2, regular Abdomen soft, obese, nontender, bowel sounds are present Extremities no edema 4/5 lower extremity muscle strength bila terally Neuro evaluation is nonfocal. normal speech. No tremors Discharge Data Studies Completed and Pending Completed Studies During Hospitalization Category Date Time Status CT head wo con* [id number] Stat Cat Scan 10/31/25 20:[address] lumbar spine wo con* [id number] Stat Cat Scan 10/31/25 22:55 Completed XR chest 1V portable [id number] Stat Exams 10/31/25 18:01 Completed Pending at discharge Category Date Time Status Blood Culture Stat Lab 11/01/25 14:11 Results CBC Auto Diff [Complete Blood Count w/Auto] AM LABS Lab 11/04/25 04:00 Ordered Comprehensive Metabolic Panel AM LABS Lab 11/04/25 04:00 Ordered Magnesium AM LABS Lab 11/04/25 04:00 Ordered Radiology Impressions Chest X-Ray 10/31/25 18:01 IMPRESSION: No acute pulmonary disease. Head CT 10/31/25 20:43 IMPRESSION: 1. No acute intracranial pathology. 2. Senescent changes. Lumbar Spine CT 10/31/25 22:55 IMPRESSION: 1. No acute pathology. 2. Degenerative changes detailed in a level by level analysis above. Laboratory Results WBC 4.43 10^3/uL (3.29-11.43) 11/03/25 05:28 RBC 4.57 10^6/uL (3.85-5.65) 11/03/25 05:28 Hgb 14.90 g/dL (11.27-16.99) 11/03/25 05:28 Hct 43.0 % (37-53) 11/03/25 05:28 MCV 94.1 fl (82-101) 11/03/25 05:28 MCH 32.6 pg (27-33) 11/03/25 05:28 MCHC 34.7 g/dL (30-55) 11/03/25 05:28 RDW 12.9 % (12.1-15.1) 11/03/25 05:28 Plt Count 130 10^3/cmm (157-399) L 11/03/25 05:28 MPV 9.7 fL (7.4-10.4) 11/03/25 05:28 Neut % (Auto) 64.0 % 11/03/25 05:28 Lymph % (Auto) 23.7 % 11/03/25 05:28 [place] % (Auto) 11.1 % 11/03/25 05:28 Eos % (Auto) 0.5 % 11/03/25 05:28 Baso % (Auto) 0.5 % 11/03/25 05:28 Neut # (Auto) 2.84 10^3/uL (1.8-7.7) 11/03/25 05:28 Lymph # (Auto) 1.1 10^3/uL (0.8-4.8) 11/03/25 05:28 [place] # (Auto) 0.5 10^3/uL (0.2-0.9) 11/03/25 05:28 Eos # (Auto) 0.0 10^3/uL (0.0-0.8) 11/03/25 05:28 Baso # (Auto) 0.0 10^3/uL (0.0-0.1) 11/03/25 05:28 Nucleated RBC % (auto) 0 % 11/03/25 05:28 Nucleated RBCs # 0.0 /100WBC 11/03/25 05:28 Sodium 140 mmol/L (136-145) 11/03/25 05:28 Potassium 3.3 mmol/L (3.5-5.1) L 11/03/25 05:28 Chloride 105 mmol/L (98-107) 11/03/25 05:28 Carbon Dioxide 21 mmol/L (22-29) L 11/03/25 05:28 Anion Gap 17.3 (5-19) 11/03/25 05:28 BUN 22 mg/dL (8-23) 11/03/25 05:28 Creatinine 1.2 mg/dL (0.7-1.2) 11/03/25 05:28 GFR Calculation Not Reportable 11/03/25 05:28 Glucose 153 mg/dL (65-115) H 11/03/25 05:28 Calculated Osmolality 296 mOsm/kg (285-295) H 11/03/25 05:28 Calcium 8.8 mg/dL (8.5-10.5) 11/03/25 05:28 Magnesium 2.1 mg/dL (1.7-2.3) 11/03/25 05:28 Total Bilirubin 0.5 mg/dL (0.15-1.2) 11/03/25 05:28 AST 332 U/L (0-40) H 11/03/25 05:28 ALT 111 U/L (0-41) H 11/03/25 05:28 Alkaline Phosphatase 76 U/L (40-130) 11/03/25 05:28 Total Protein 5.4 g/dL (6.6-8.7) L 11/03/25 05:28 Albumin 3.4 g/dL (3.5-5.2) L 11/03/25 05:28 Globulin 2.0 g/dL (1.3-4.6) 11/03/25 05:28 Urine Color Yellow (Yellow) 10/31/25 19:53 Urine Appearance Clear (CLEAR) 10/31/25 19:53 Urine pH 5.0 (5-7) 10/31/25 19:53 Ur Specific [place] 1.024 (1.005-1.030) 10/31/25 19:53 Urine Protein 1+ (Negative) A 10/31/25 19:53 Urine Glucose (UA) Trace (Normal) H 10/31/25 19:53 Urine Ketones 2+ (Negative) H 10/31/25 19:53 Urine Blood Trace (Negative) A 10/31/25 19:53 Urine Nitrate Negative (Negative) 10/31/25 19:53 Urine Bilirubin Negative (Negative) 10/31/25 19:53 Urine Urobilinogen 1.0 mg/dL (Negative) 10/31/25 19:53 Ur Leukocyte Esterase Negative (Negative) 10/31/25 19:53 Urine RBC 0-2 /hpf (0-2) 10/31/25 19:53 Urine WBC 0-5 /hpf (0-5) 10/31/25 19:53 Ur Squamous Epith Cells 0-5 /hpf (0-5) 10/31/25 19:53 Amorphous Sediment Not Reportable 10/31/25 19:53 Urine Bacteria None seen /hpf (NONE) 10/31/25 19:53 Hyaline Casts 2.87 /lpf 10/31/25 19:53 Adenovirus (PCR) Not detected (NOT DETECT) 11/01/25 10:50 C. pneumoniae DNA (PCR) Not detected (NOT DETECT) 11/01/25 10:50 Coronavirus 229E (PCR) Not detected (NOT DETECT) 11/01/25 10:50 Human Metapneumovir PCR Not detected (NOT DETECT) 11/01/25 10:50 Influenza A (H1) PCR Not detected (NOT DETECT) 11/01/25 10:50 Influ A (H1/09) PCR Not detected (NOT DETECT) 11/01/25 10:50 Influenza A (H3) PCR Detected (NOT DETECT) A 11/01/25 10:50 Influenza Type A (PCR) Detected (NOT DETECT) A 11/01/25 10:50 Influenza Type B (PCR) Not detected (NOT DETECT) 11/01/25 10:50 M. pneumoniae (PCR) Not detected (NOT DETECT) 11/01/25 10:50 Parainfluenza 1 (PCR) Not detected (NOT DETECT) 11/01/25 10:50 Parainfluenza 2 (PCR) Not detected (NOT DETECT) 11/01/25 10:50 Parainfluenza 3 (PCR) Not detected (NOT DETECT) 11/01/25 10:50 Parainfluenza 4 (PCR) Not detected (NOT DETECT) 11/01/25 10:50 RSV Type A (PCR) Not detected (NOT DETECT) 11/01/25 10:50 RSV Type B (PCR) Not detected (NOT DETECT) 11/01/25 10:50 Entero/Rhino (PCR) Not detected (NOT DETECT) 11/01/25 10:50 SARS-CoV-2 (PCR) Not detected (NOT DETECT) 11/01/25 10:50 Vitals Last Vital Signs Temp 97.5 F L 11/03/25 11:25 Pulse 66 11/03/25 11:25 Resp 16 11/03/25 11:25 BP 88/56 11/03/25 11:25 Pulse Ox 93 11/03/25 11:25 O2 Del Method CPAP 11/03/25 11:25 FiO2 21 11/01/25 20:28 Discharge Plan Discharge Patient Disposition: Home Condition: Stable Prescriptions: Continued methylphenidate HCl [Ritalin] 20 mg tablet 20 mg PO BID olmesartan [Benicar] 40 mg tablet 40 mg PO QAM bupropion HCl 75 mg tablet See Rx Instructions .ROUTE .COMPLEX Rx Instructions: Take 150mg by mouth in the am,75mg at noon, and 150mg at bedtime multivitamin Tablet 1 tab PO DAILY vitamin B complex Tablet 1 tab PO DAILY acetaminophen [Tylenol Extra Strength] 500 mg tablet 500 mg PO Q6H PRN (Reason: Pain) cholecalciferol (vitamin D3) 25 mcg (1,000 unit) capsule 25 mcg PO DAILY (DME) diabetic shoes with 3 custom inserts See Rx Instructions .Route .MEDSUPPLY Qty: 1 0RF Rx Instructions: As directed (DME) Diabetic shoes with 3 pairs of inserts See Rx Instructions .Route .MEDSUPPLY Qty: 1 0RF Rx Instructions: As directed Shoe [place] nitroglycerin 0.4 mg tablet, sublingual 0.4 mg sublingual Q5M PRN (Reason: chest pain) 30 Days Qty: 30 3RF Rx Instructions: until response; do not exceed 3 doses per episode Eliquis 5 mg tablet 5 mg PO BID Qty: 180 3RF folic acid 1 mg Tablet 1 mg PO DAILY Qty: 90 0RF divalproex 500 mg tablet extended release 24 hr 1,000 mg PO BEDTIME gabapentin 400 mg capsule 400 mg PO TID metformin 750 mg tablet extended release 24 hr 750 mg PO BID amlodipine 10 mg tablet 10 mg PO DAILY isosorbide mononitrate 30 mg tablet extended release 24 hr 30 mg PO DAILY Qty: 30 5RF Held hydralazine 100 mg tablet See Rx Instructions .ROUTE .COMPLEX Qty: 270 3RF Hold Instructions: Resume on 11/11/25. Please monitor blood pressure, hold for hypotension, resume under the direction of PCP. Dose Instruction: TAKE 1 TABLET THREE TIMES A DAY Rx Instructions: TAKE 1 TABLET THREE TIMES A DAY Discharge Order = DC NOW: Discharge Order (Routine); Ordered 11/03/25 Ordered By: Jesica Whitmore Referrals: Сергей Villatoro DO [Primary Care Provider, [facility]] - 11/10/25 3:40 pm Discharge Diet: Cardiac Discharge Activity: Resume usual activity Patient Instructions: Influenza (GEN), Weakness (GEN), Opioid Safety, Patient Portal & Jennifer Instructions Discharge Attestations Time Spent in Discharge Care*: greater than 30 min Quality Metrics Clinical Quality Measures [ No reported AMI, CVA or VTE this stay] Coding Level of Care Code 09474 Diagnoses Lower extremity weakness R29.898 URI due to influenza A virus J10.1
--- NOTE | 2025-11-03 13:43 | PC.OT ---
OT EVALUATION HELD DUE TO SCHEDULED PATIENT D/C TODAY
[2025-11-03 14:24] VITALS: BP 98/72; PULSE 68; O2SAT 95
== END 2025-11-03 14:24 | disposition home or self-care (01) | DRG 194 ==
LOC: ER 22:51 → MEDSURG 11-01 00:29
PROVIDERS: Internal Medicine; Admitting Provider Family Medicine; Emergency Provider Family Medicine; PCP Electrodiagnostic Medicine; Visit Provider Registered Nurse
DX: J10.1 Influenza due to other identified influenza virus with other respiratory manifestations (principal); I48.21 Permanent atrial fibrillation; I10 Essential (primary) hypertension; E11.40 Type 2 diabetes mellitus with diabetic neuropathy, unspecified; R53.1 Weakness; M54.50 Low back pain, unspecified; N40.1 Benign prostatic hyperplasia with lower urinary tract symptoms; I95.9 Hypotension, unspecified; E29.1 Testicular hypofunction; F31.9 Bipolar disorder, unspecified; G47.33 Obstructive sleep apnea (adult) (pediatric); K59.00 Constipation, unspecified; E66.9 Obesity, unspecified; Z68.38 Body mass index [BMI] 38.0-38.9, adult; Z79.01 Long term (current) use of anticoagulants; Z79.84 Long term (current) use of oral hypoglycemic drugs; Z95.0 Presence of cardiac pacemaker; Z87.891 Personal history of nicotine dependence; Z82.3 Family history of stroke; Z82.49 Family history of ischemic heart disease and other diseases of the circulatory system
CPT/HCPCS: 36415; 70450; 71045; 72131; 80053; 81001; 83735; 85025; 87040; 87486; 87581; 87633; 93005; 94660; 97161; 99291; G0378; J7030; J7040; J7512; J9999